=== PATIENT | female | born 1935 | race Caucasian/White ===

== ENCOUNTER 2017-06-30 14:30 | Inpatient (IN) | payer MEDICARE ==
[~2017-06-30] VITALS: Ht 162.6 cm; Wt 51.5 kg
[~2017-06-30 14:30] MED LIST: ASP81TEC PO; HTN med; SOTOLOL
--- NOTE | 2017-06-30 14:53 | ED Lower Extremity ---
General Chief Complaint: Lower Extremity Stated Complaint: EDEMA SWELLING AND LEAKING IN BOTH LE Source: patient, family Exam Limitations: no limitations History of Present Illness Time seen by provider: 14:48 Initial Comments The patient's an 81-year-old white female who presents to the emergency room with rapidly increasing redness and swelling in the right lower extremity. She has been receiving treatment for venous stasis and blistering. Her transition of care specialist states that yesterday both legs were a bit swollen they were not red or warm. Today the right lower extremity has become red and warm and has become tender. The transition of care specialist states that the open areas were blisters that were present days ago but there was not redness Onset: this morning Pain/Injury Location: right leg Allergies and Home Medications Allergies Coded Allergies: Penicillins (Verified Adverse Reaction, Intermediate, swelling, 06/29/13) aspartame (Verified Adverse Reaction, Intermediate, elevated heart rate/ feeling ill, 06/29/13) Home Medications Aspirin 81 Mg Tabec, 81 MG PO DAILY, (Reported) [HTN med] , (Reported) [Sotolol] , (Reported) Constitutional: see HPI EENTM: no symptoms reported Respiratory: no symptoms reported Cardiovascular: no symptoms reported Gastrointestinal: no symptoms reported Genitourinary: no symptoms reported Musculoskeletal: see HPI Skin: see HPI Psychiatric/Neurological: No Symptoms Reported Past Smrrslh-Hkueta-Ulirex Hx Patient Social History Recent Foreign Travel: No Contact w/Someone Who Travel: No Seasonal Allergies Seasonal Allergies: Yes Surgeries HX Surgeries: Yes Respiratory Hx Respiratory Disorders: No Cardiovascular Hx Cardiac Disorders: Yes (SVT) Neurological Hx Neurological Disorders: No Genitourinary Hx Genitourinary Disorders: No Gastrointestinal Hx Gastrointestinal Disorders: No Musculoskeletal Hx Musculoskeletal Disorders: Yes (DJD) Musculoskeletal Disorders: Arthritis Endocrine Hx Endocrine Disorders: No HEENT HX ENT Disorders: No Cancer Hx Cancer: No Psychosocial Hx Psychiatric Problems: No Integumentary HX Skin/Integumentary Disorder: No Blood Transfusions Hx Blood Disorders: No Physical Exam Vital Signs Vital Sign - Last 12Hours 06/30/17 14:35 Temp 98.6 Pulse 68 Resp 18 B/P (MAP) 167/93 Pulse Ox 95 Capillary Refill : General Appearance: mild distress HEENT: normal ENT inspection Neck: non-tender, full range of motion, supple, normal inspection Cardiovascular: normal peripheral pulses, regular rate, rhythm, no edema, no gallop, no JVD, no murmur Respiratory: chest non-tender, lungs clear, normal breath sounds, no respiratory distress, no accessory muscle use Gastrointestinal: normal bowel sounds, non tender, soft, no organomegaly, no pulsatile mass Legs: right leg soft tissue tenderness, right leg swelling Neurologic/Tendon: normal sensation Neurologic/Psychiatric: cotton wringer II-XII nml as tested, no motor/sensory deficits, alert, normal mood/affect, oriented x 3 Skin: other (there was redness and warmth to just below the tibial tuberosity on the right. There is 2+ swelling at the foot. There were multiple small ulcerations over the anterior allen) Progress/Results/Core Measures Results/Orders Lab Results Laboratory Tests Test 06/30/17 14:55 Range/Units White Blood Count 19.2 H 4.3-11.0 10^3/uL Red Blood Count 3.88 L 4.35-5.85 10^6/uL Hemoglobin 11.2 L 11.5-16.0 G/DL Hematocrit 34 L 35-52 % Mean Corpuscular Volume 86 80-99 FL Mean Corpuscular Hemoglobin 29 25-34 PG Mean Corpuscular Hemoglobin Concent 33 32-36 G/DL Red Cell Distribution Width 15.6 H 10.0-14.5 % Platelet Count 297 130-400 10^3/uL Mean Platelet Volume 9.0 7.4-10.4 FL Neutrophils (%) (Auto) 86 H 42-75 % Lymphocytes (%) (Auto) 5 L 12-44 % Monocytes (%) (Auto) 8 0-12 % Eosinophils (%) (Auto) 1 0-10 % Basophils (%) (Auto) 0 0-10 % Neutrophils # (Auto) 16.6 H 1.8-7.8 X 10^3 Lymphocytes # (Auto) 0.9 L 1.0-4.0 X 10^3 Monocytes # (Auto) 1.6 H 0.0-1.0 X 10^3 Eosinophils # (Auto) 0.1 0.0-0.3 10^3/uL Basophils # (Auto) 0.1 0.0-0.1 10^3/uL My Orders Orders - SCAR GUIDRY MD Cbc With Automated Diff (06/30/17 14:46) Comprehensive Metabolic Panel (06/30/17 14:46) Ua Culture If Indicated (06/30/17 14:46) Manual Differential (06/30/17 14:55) Blood Culture (06/30/17 15:21) Vital Signs/I&O Vital Sign - Last 12Hours 06/30/17 14:35 Temp 98.6 Pulse 68 Resp 18 B/P (MAP) 167/93 Pulse Ox 95 Departure Communication Progress Notes White count was 19.2. Vital signs are normal. Discussed with Dr. Reagan hospitalist at 1525. The patient will be admitted and placed on cefepime and vancomycin empirically. Impression Impression: Primary Impression: venous stasis dermatitis Additional Impression: cellulitis right lower extremity Disposition: ADMITTED INPATIENT Condition: Stable/Unchanged Decision to Admit Reason: Admit from ER (General) Decision to Admit/Date: Jun 30, 2017 Time/Decision to Admit Time: 15:26 Departure-Patient Inst. Referrals: AVELINA JUAREZ MD (PCP/Family) Primary Care Physician SCAR GUIDRY MD Jun 30, 2017 14:53
[2017-06-30 15:10] LABS: BASOPHILS # (AUTO) 0.1 10^3/uL (0.0-0.1); BASOPHILS % (AUTO) 0 % (0-10); EOSINOPHILS # (AUTO) 0.1 10^3/uL (0.0-0.3); EOSINOPHILS % (AUTO) 1 % (0-10); LYMPHOCYTES # (AUTO) 0.9 X 10^3 (1.0-4.0); LYMPHOCYTES % (AUTO) 5 % (12-44); MEAN CORPUSCULAR HEMOGLOBIN 29 PG (25-34); MEAN CORPUSCULAR HGB CONC 33 G/DL (32-36); MEAN CORPUSCULAR VOLUME 86 FL (80-99); MONOCYTES # (AUTO) 1.6 X 10^3 (0.0-1.0); MONOCYTES % (AUTO) 8 % (0-12); NEUTROPHILS # (AUTO) 16.6 X 10^3 (1.8-7.8); NEUTROPHILS % (AUTO) 86 % (42-75); PLATELET COUNT 297 10^3/uL (130-400); RED BLOOD COUNT 3.88 10^6/uL (4.35-5.85); RED CELL DISTRIBUTION WIDTH 15.6 % (10.0-14.5); WHITE BLOOD COUNT 19.2 10^3/uL (4.3-11.0)
[2017-06-30] MEDS ORDERED: CEFEPIME INJECTION 2,000 MG in NS (IVPB) 50 ML IV ONE (15:30)
[2017-06-30 15:32] LABS: ALANINE AMINOTRANSFERASE 11 U/L (0-55); ALBUMIN 3.1 GM/DL (3.2-4.5); ANION GAP 13 MMOL/L (5-14); ASPARTATE AMINO TRANSFERASE 27 U/L (5-34); BILIRUBIN,TOTAL 1.2 MG/DL (0.1-1.0); BLOOD UREA NITROGEN 15 MG/DL (7-18); BUN/CREATININE RATIO 25; CALCIUM 9.4 MG/DL (8.5-10.1); CARBON DIOXIDE 24 MMOL/L (21-32); CHLORIDE 90 MMOL/L (98-107); GFR ESTIMATED > 60; GLUCOSE 110 MG/DL (70-105); SODIUM 127 MMOL/L (135-145); TOTAL PROTEIN 6.3 GM/DL (6.4-8.2)
[2017-06-30 15:38] LABS: BAND NEUTROPHILS 5 %; BASOPHILS % (MANUAL) 0 %; EOSINOPHILS % (MANUAL) 3 %; LYMPHOCYTES % (MANUAL) 3 %; NEUTROPHILS % (MANUAL) 82 %
[2017-06-30 17:18] VITALS: BP 178/100
[2017-06-30] MEDS ORDERED: VANCOMYCIN 1250 MG/NS 250 ML IVPB IV NR ×2 (17:30)
[2017-06-30] MEDS: NS IV 1000 ML 1,000 ML IV SCH (17:54)
[2017-06-30] MEDS ORDERED: ACETAMINOPHEN 325 MG TABLET/CAPLET (TYLENOL) PO PRN (18:00)
[2017-06-30 18:10] VITALS: BP 178/88
[2017-06-30] MEDS ORDERED: CETI10CA PO (18:22)
[2017-06-30] MEDS ORDERED: SOTA120T PO (18:22)
[2017-06-30] MEDS ORDERED: CELE200C PO (18:22)
[2017-06-30 19:35] VITALS: BP 158/88
[2017-06-30] MEDS ORDERED: amLODIPine 5 MG (NORVASC) TAB PO ONE (20:30)
[2017-06-30] MEDS: SOTALOL 80 MG (BETAPACE) TAB PO SCH (21:24)
[2017-06-30] MEDS: ALPRAZolam 0.25 MG (XANAX) TAB PO PRN (22:30)
[2017-06-30 23:54] VITALS: BP 117/66
[2017-07-01] MEDS ORDERED: meTOproloL SUCCINATE 50 MG (TOPROL XL) TAB PO SCH (02:45)
[2017-07-01] MEDS ORDERED: DIGOXIN 0.25 MG/ML (LANOXIN) 2 ML AMP IV ONE ×2 (02:45→05:30)
[2017-07-01] MEDS ORDERED: APIXABAN 5 MG (ELIQUIS) TABLET PO ONE (03:00)
[2017-07-01 04:00] VITALS: BP 130/84
[2017-07-01] MEDS: NS IV 1000 ML 1,000 ML IV SCH (04:05)
[2017-07-01 04:59] LABS: BASOPHILS % (AUTO) 0 % (0-10); EOSINOPHILS # (AUTO) 0.1 10^3/uL (0.0-0.3); EOSINOPHILS % (AUTO) 1 % (0-10); LYMPHOCYTES # (AUTO) 0.9 X 10^3 (1.0-4.0); LYMPHOCYTES % (AUTO) 5 % (12-44); MEAN CORPUSCULAR HEMOGLOBIN 28 PG (25-34); MEAN CORPUSCULAR HGB CONC 33 G/DL (32-36); MEAN CORPUSCULAR VOLUME 86 FL (80-99); MEAN PLATELET VOLUME 9.2 FL (7.4-10.4); MONOCYTES # (AUTO) 1.5 X 10^3 (0.0-1.0); MONOCYTES % (AUTO) 9 % (0-12); NEUTROPHILS # (AUTO) 13.6 X 10^3 (1.8-7.8); NEUTROPHILS % (AUTO) 85 % (42-75); PLATELET COUNT 294 10^3/uL (130-400); RED BLOOD COUNT 3.81 10^6/uL (4.35-5.85); RED CELL DISTRIBUTION WIDTH 15.8 % (10.0-14.5); WHITE BLOOD COUNT 16.1 10^3/uL (4.3-11.0)
[2017-07-01 08:20] VITALS: BP 121/70
[2017-07-01] MEDS: CEFEPIME 2 GM/NS 50 ML IVPB IV SCH ×2 (08:33)
[2017-07-01] MEDS: SOTALOL 80 MG (BETAPACE) TAB PO SCH ×2 (08:34→20:19)
[2017-07-01] MEDS ORDERED: APIXABAN 2.5 MG (ELIQUIS) TABLET PO SCH (09:00)
[2017-07-01 09:56] LABS: ALANINE AMINOTRANSFERASE 12 U/L (0-55); ALBUMIN 2.8 GM/DL (3.2-4.5); ANION GAP 9 MMOL/L (5-14); ASPARTATE AMINO TRANSFERASE 20 U/L (5-34); BILIRUBIN,TOTAL 1.4 MG/DL (0.1-1.0); BLOOD UREA NITROGEN 12 MG/DL (7-18); BUN/CREATININE RATIO 24; CALCIUM 8.6 MG/DL (8.5-10.1); CARBON DIOXIDE 25 MMOL/L (21-32); CHLORIDE 91 MMOL/L (98-107); CREATININE SERUM 0.49 MG/DL (0.60-1.30); GFR ESTIMATED > 60; GLUCOSE 79 MG/DL (70-105); POTASSIUM 3.8 MMOL/L (3.6-5.0); TOTAL PROTEIN 5.7 GM/DL (6.4-8.2)
[2017-07-01 10:15] LABS: SODIUM 125 MMOL/L (135-145)
[2017-07-01] MEDS: DIVALPROX SPRINKLE 125 MG (DEPAKOTE) CAP PO SCH ×2 (11:15→20:19)
[2017-07-01 11:37] LABS: BILIRUBIN,URINE NEGATIVE (NEGATIVE); KETONES,URINE 1+ (NEGATIVE); LEUKOCYTE ESTERASE ,URINE NEGATIVE (NEGATIVE); NITRITE,URINE NEGATIVE (NEGATIVE); PH,URINE 6 (5-9); PROTEIN,URINE NEGATIVE (NEGATIVE); UROBILINOGEN,URINE NORMAL (NORMAL)
--- NOTE | 2017-07-01 11:45 | History & Physical-Hospitalist ---
HPI History of Present Illness: HPI/Chief Complaint CC: Right lower leg cellulitis with h/o wound care management for severe venous stasis dermatitis HPI: This is an 81-year-old clinic patient of Dr. Tran'barbara with a past medical history of atrial fibrillation on Sotalol and venous stasis dermatitis managed by wound care the presents to the emergency room with right lower leg pain and edema. She was diagnosed with severe right lower extremity cellulitis and very complicated given the fact that she's been going to wound care and failure of that treatment so she was placed on broad-spectrum antibiotics of vancomycin and cefepime due to allergies of penicillin and her lab work is improved white count but she has become confused and hypernatremia initially was 127 now 125 indicating a huge factor in contributing to the confusion. I did start her on Depakote sprinkles to manage the delusions and paranoia she was having currently because she's at risk for further agitation and fall risk. Source: patient Exam Limitations: clinical condition (confused) Date Seen 07/01/17 Time Seen by Provider: 10:30 Attending Physician Socorro Reagan DO PCP Andrews Tran MD Referring Physician Date of Admission Jun 30, 2017 at 15:35 Home Medications & Allergies Home Medications Reviewed patient Home Medication Reconciliation Form Allergies Allergies Coded Allergies Penicillins (Verified Adverse Reaction, Intermediate, swelling, 06/30/17) aspartame (Verified Adverse Reaction, Intermediate, elevated heart rate/ feeling ill, 06/30/17) Past Kdhqhpt-Ehilhi-Flcgdd Hx Patient Social History Marrital Status: single Employed/Student: retired Alcohol Use: Rarely Uses Recreational Drug Use: No Smoking Status: Former Smoker Physical Abuse Screen: No Sexual Abuse: No Recent Foreign Travel: No Contact w/other who traveled: No Recent Hopitalizations: No Recent Infectious Disease Expo: No Seasonal Allergies Seasonal Allergies: Yes Surgeries HX Surgeries: Yes Surgeries: Appendectomy, Gallbladder, Hysterectomy, Orthopedic Respiratory Hx Respiratory Disorders: No Cardiovascular Hx Cardiovascular Disorders: Yes (SVT) Neurological Hx Neurological Disorders: Yes Neurological Disorders: Dementia Reproductive System Sexually Transmitted Disease: No Genitourinary Hx Genitourinary Disorders: No Gastrointestinal Hx Gastrointestinal Disorders: No Musculoskeletal Hx Musculoskeletal Disorders: Yes (DJD) Musculoskeletal Disorders: Osteoporosis, Rheumatoid Arthritis Endocrine Hx Endocrine Disorders: No HEENT HX ENT Disorders: No HEENT Disorders: Cataract Cancer Hx Cancer: No Psychosocial Hx Psychiatric Problems: No Integumentary HX Skin/Integumentary Disorder: No Blood Transfusions Hx Blood Disorders: No Adverse Reaction to a Blood Tr: No Family Medical History Family Hx: Arthritis 19 MOTHER Cardiovascular disease 19 MOTHER FH: lung cancer 19 FATHER Review of Systems Constitutional: see HPI, weakness EENTM: no symptoms reported Respiratory: no symptoms reported Cardiovascular: no symptoms reported Gastrointestinal: no symptoms reported Genitourinary: no symptoms reported Musculoskeletal: joint pain Skin: see HPI Psychiatric/Neurological: Anxiety, Other (confusion) Physical Exam Physical Exam Vital Signs Vital Sign - Last 12Hours 06/30/17 06/30/17 14:35 17:18 Temp 98.6 Pulse 68 Resp 18 B/P (MAP) 167/93 Pulse Ox 95 O2 Delivery Room Air Capillary Refill : Less Than 3 Seconds General Appearance: WD/WN, Chronically ill, Mild Distress (due to anxiety) Eyes: Bilateral Eye Normal Inspection, Bilateral Eye PERRL HEENT: PERRL/EOMI, Normal ENT Inspection, Pharynx Normal Neck: Full Range of Motion, Normal Inspection, Non Tender, Supple, Carotid Bruit Respiratory: Chest Non Tender, Lungs Clear, Normal Breath Sounds, No Accessory Muscle Use, No Respiratory Distress Cardiovascular: Regular Rate, Rhythm, No Edema, No Gallop, No JVD, No Murmur, Normal Peripheral Pulses Gastrointestinal: Normal Bowel Sounds, No Organomegaly, No Pulsatile Mass, Non Tender, Soft Back: Normal Inspection, No CVA Tenderness, No Vertebral Tenderness Extremity: Normal Capillary Refill, Normal Inspection, Normal Range of Motion, Non Tender, No Calf Tenderness, No Pedal Edema, Other (right lower leg improved edema and erythema no ulcerations for drainage) Neurologic/Psychiatric: Alert, Oriented x3, No Motor/Sensory Deficits, Normal Mood/Affect Skin: Normal Color, Warm/Dry Lymphatic: No Adenopathy Results Results/Procedures Lab Laboratory Tests 06/30/17 14:55 07/01/17 03:58 07/01/17 05:58 Assessment/Plan Admission Diagnosis Assessment: Right lower leg cellulitis failed wound care treatment with antibiotic administration placed on vancomycin and cefepime and much improved Severe confusion with dementia baseline placed on Depakote sprinkles empirically Severe hyponatremia 127 on admission now 125 placed on 800 mL of oral fluid restriction likely a conservative factor of increased confusion SVT/AF on sotalol Fall risk Chronic debility Tachycardia prompting cardiology consultation last night due to heart rate of 130 Assessment and Plan Plan: IV antibiotics empirically Monitor labs Fluid restriction Depakote sprinkles Monitor closely Fall risk I appreciate cardiology management Clinical Quality Measures DVT/VTE Risk/Contraindication: Risk Factor Score Per Nursin RFS Level Per Nursing on Admit: 4+=Very High Other: SCDS CONTRAINDICATED, LEGS ARE INFLAMMED SOCORRO REAGAN DO Jul 01, 2017 11:45
[2017-07-01 11:53] LABS: WBC,URINE RARE /HPF
[2017-07-01] MEDS ORDERED: meTOprolol 5 MG/5 ML (LOPRESSOR) VIAL IV NR (12:15)
--- NOTE | 2017-07-01 12:52 | Consultation-Cardiology ---
HPI-Cardiology Cardiology Consultation: Date of Consultation 07/01/17 Date of Admission Attending Physician Socorro Reagan DO Admitting Physician Andrews Tran MD Consulting Physician Faye MEJIA MD HPI: Time Seen by Provider: 12:00 Chief Complaint: Supraventricular tachycardia This is a 81-year-old lady who presents with cellulitis. She was found to have tachycardia. She denies any palpitations however she does have shortness of breath. She denies any chest pain. Review of Systems-Cardiology Review of Systems Constitutional: No As described under HPI, No no symptoms reported, No chills, No fever, No lightheadedness, No malaise, No tiredness, No weight loss, No weight gain, No other Eyes: No As described under HPI, No no symptoms reported, No blindness, No blurred vision, No contact lenses, No drainage, No decreased acuity, No foreign body sensation, No glasses, No inflammation, No pain, No photophobia, No previous injury, No shadows, No tunnel vision, No other, No vision change Ears/Nose/Throat: No As described under HPI, No no symptoms reported, No chronic hearing loss, No epistaxis, No ear discharge, No ear pain, No loose teeth, No mouth pain, No mouth swelling, No nasal drainage, No nose pain, No recent hearing loss, No throat pain, No throat swelling, No ulcerations, No other Respiratory: shortness of breath Cardiovascular: No no symptoms reported, No As described under HPI, No chest pain, No edema, No irregular heart rate, No lightheadedness, No palpitations, No syncope, No other Gastrointestinal: No no symptoms reported, No As described under HPI, No abdomen distended, No abdominal pain, No blood streaked bowels, No constipation , No diarrhea, No difficulty swallowing, No nausea, No poor appetite, No poor fluid intake, No rectal bleeding, No vomiting, No other, No nausea/vomiting/ diarrhea, No stool coloration changes Genitourinary: No no symptoms reported, No As described under HPI, No burning, No dysuria, No discharge, No frequency, No flank pain, No hematuria, No incontinence, No pain, No urgency, No other, No urine frequency changes, No urine coloration changes Musculoskeletal: No no symptoms reported, No As describe under HPI, No back pain, No gout, No joint pain, No joint swelling, No muscle pain, No muscle stiffness, No neck pain, No other Skin: other (right lower extremity cellulitis) Psychiatric/Neurological: No As described under HPI, No anxiety, No depression , No emotional problems, No focal weakness, No headache, No no symptoms reported , No numbness, No other, No pre-existing deficit, No seizure, No syncope, No tingling, No tremors, No weakness Hematologic: No no symptoms reported, No As described under HPI, No anemia, No blood clots, No easy bleeding, No easy bruising, No swollen glands, No other, No bleeding abnormalities PZP-Pcmquc-Itxqyy Hx Patient Social History Marrital Status: single Employed/Student: retired Alcohol Use: Rarely Uses Recreational Drug Use: No Smoking Status: Former Smoker Recent Foreign Travel: No Recent Infectious Disease Expo: No Hospitalization with Isolation: Denies Physical Abuse Screen: No Sexual Abuse: No Past Medical History PMH As described under Assessment. Family Medical History Family History: Arthritis 19 MOTHER Cardiovascular disease 19 MOTHER FH: lung cancer 19 FATHER Allergies and Home Medications Allergies Coded Allergies: Penicillins (Verified Adverse Reaction, Intermediate, swelling, 06/30/17) aspartame (Verified Adverse Reaction, Intermediate, elevated heart rate/ feeling ill, 06/30/17) Home Medications Aspirin 81 Mg Tabec, 81 MG PO DAILY, (Reported) Celecoxib 200 Mg Capsule, 200 MG PO BID, (Reported) Cetirizine HCl 10 Mg Capsule, 10 MG PO DAILY, (Reported) Sotalol HCl 120 Mg Tablet, 120 MG PO BID, (Reported) Physical Exam-Cardiology Physical Exam Vital Signs/I&O Vital Sign - Last 12Hours 07/01/17 07/01/17 07/01/17 07/01/17 01:56 04:00 07:00 08:20 Temp 98.4 98.2 Pulse 137 131 125 130 Resp 20 20 B/P (MAP) 130/84 121/70 Pulse Ox 91 93 O2 Delivery Room Air Room Air 07/01/17 08:45 Pulse Ox 93 O2 Delivery Room Air Intake and Output 07/01/17 00:00 Intake Total 260 ml Output Total 200 ml Balance 60 ml Capillary Refill : Less Than 3 Seconds Constitutional: No appears stated age, No AAO x 3, No apparent distress, No PERRL, No well-developed, No well-nourished, No other HEENT: No PERRL, No normal ENT inspection, No TMs normal, No pharynx normal, No scleral icterus (R), No scleral icterus (L), No pale conjunctivae (R), No pale conjunctivae (L), No photophobia, No TM abnormal (R), No TM abnormal (L), No pharyngeal erythema, No tonsillar exudate, No other, No discharge, No EOMI, No hearing is well preserved, No hard of hearing, No oral hygience is good, No ulceration, No xanthelasmas are seen Neck: No non-tender, No full range of motion, No supple, No normal inspection, No carotid bruit, No limited range of motion, No lymphadenopathy (R), No lymphadenopathy (L), No tender lateral, No tender midline, No thyromegaly, No other, No carotid pulses are 2 + bilaterally, No with good upstrokes Respiratory: No accessory muscle use, No respiratory distress, No chest tender , No chest expansion is symmetric, No chest is bilaterally symmetric, No lungs clear to percussion, No lungs clear to auscultation, No crackles, No rhonchi, No rales, No stridor, No wheezing, No pleural rub, No other Cardiovascular: No regular rate-rhythm, No irregularly irregular, No extra beats, No parasternal heave is noted, No JVD, No edema, No bradycardia, tachycardia, No point of maximal impulse, No cardiac thrills are palpable, No S1 and S2, No gallop/S3, No gallop/S4, No diastolic murmur, No systolic murmur, No friction rub, No click, No other Gastrointestinal: No tender, No soft, No round, No distended, No pulsatile mass , No organomegaly, No guarding, No rebound, No tenderness, No hernia, No mass, No audible bowel sounds, No abnormal bowel sounds, No abdominal bruits, No spleenomegaly, No other Rectal: deferred Extremities: inflammation, other (right lower extremity cellulitis) Neurologic/Psychiatric: No winery worker II-XII nml as tested, No no motor/sensory deficits, No alert, No normal mood/affect, No oriented x 3, No abnormal cerebellar tests, No abnormal winery worker II-XII, No abnormal gait, No aphasia, No EOM palsy, No facial droop, No motor weakness, No sensory deficit, No depressed affect, No disoriented x 3, No other, No grossly intact, No power is 5/5 both on sides Skin: rash Data Review Labs Laboratory Tests 06/30/17 14:55: White Blood Count 19.2H, Red Blood Count 3.88L, Hemoglobin 11.2L, Hematocrit 34L , Mean Corpuscular Volume 86, Mean Corpuscular Hemoglobin 29, Mean Corpuscular Hemoglobin Concent 33, Red Cell Distribution Width 15.6H, Platelet Count 297, Mean Platelet Volume 9.0, Neutrophils (%) (Auto) 86H, Lymphocytes (%) (Auto) 5L , Monocytes (%) (Auto) 8, Eosinophils (%) (Auto) 1, Basophils (%) (Auto) 0, Neutrophils # (Auto) 16.6H, Lymphocytes # (Auto) 0.9L, Monocytes # (Auto) 1.6H, Eosinophils # (Auto) 0.1, Basophils # (Auto) 0.1, Neutrophils % (Manual) 82, Lymphocytes % (Manual) 3, Monocytes % (Manual) 7, Eosinophils % (Manual) 3, Basophils % (Manual) 0, Band Neutrophils 5, Blood Morphology Comment NORMAL, Sodium Level 127L, Potassium Level 4.0, Chloride Level 90L, Carbon Dioxide Level 24, Anion Gap 13, Blood Urea Nitrogen 15, Creatinine 0.60, Estimat Glomerular Filtration Rate > 60, BUN/Creatinine Ratio 25, Glucose Level 110H, Calcium Level 9.4, Total Bilirubin 1.2H, Aspartate Amino Transf (AST/SGOT) 27, Alanine Aminotransferase (ALT/SGPT) 11, Alkaline Phosphatase 106, Total Protein 6.3L, Albumin 3.1L 07/01/17 03:58: White Blood Count 16.1H, Red Blood Count 3.81L, Hemoglobin 10.7L, Hematocrit 33L , Mean Corpuscular Volume 86, Mean Corpuscular Hemoglobin 28, Mean Corpuscular Hemoglobin Concent 33, Red Cell Distribution Width 15.8H, Platelet Count 294, Mean Platelet Volume 9.2, Neutrophils (%) (Auto) 85H, Lymphocytes (%) (Auto) 5L , Monocytes (%) (Auto) 9, Eosinophils (%) (Auto) 1, Basophils (%) (Auto) 0, Neutrophils # (Auto) 13.6H, Lymphocytes # (Auto) 0.9L, Monocytes # (Auto) 1.5H, Eosinophils # (Auto) 0.1, Basophils # (Auto) 0.0 07/01/17 05:58: Sodium Level 125*L, Potassium Level 3.8, Chloride Level 91L, Carbon Dioxide Level 25, Anion Gap 9, Blood Urea Nitrogen 12, Creatinine 0.49L, Estimat Glomerular Filtration Rate > 60, BUN/Creatinine Ratio 24, Glucose Level 79, Calcium Level 8.6, Total Bilirubin 1.4H, Aspartate Amino Transf (AST/SGOT) 20, Alanine Aminotransferase (ALT/SGPT) 12, Alkaline Phosphatase 107, Total Protein 5.7L, Albumin 2.8L 07/01/17 11:30: Urine Color YELLOW, Urine Clarity CLEAR, Urine pH 6, Urine Specific [place] 1.015L, Urine Protein NEGATIVE, Urine Glucose (UA) NEGATIVE, Urine Ketones 1+H, Urine Nitrite NEGATIVE, Urine Bilirubin NEGATIVE, Urine Urobilinogen NORMAL, Urine Leukocyte Esterase NEGATIVE, Urine RBC (Auto) NEGATIVE, Urine RBC RARE, Urine WBC RARE, Urine Squamous Epithelial Cells 2-5, Urine Crystals NONE, Urine Bacteria NEGATIVE, Urine Casts NONE, Urine Mucus NEGATIVE, Urine Culture Indicated NO ECG Impression ECG Initial ECG Impression: SVT A/P-Cardiology Assessment/Admission Diagnosis Cellulitis, Tachycardia, History of SVT Plan Cellulitis with systemic inflammation. Getting IV antibiotics. Defer to primary service. History of supraventricular tachycardia sees in [facility] who started sotalol. Oral anticoagulation was not initiated. EKG and telemetry shows narrow complex supraventricular tachycardia unlikely atrial fibrillation however atrial tachycardia cannot be ruled out. Supraventricular tachycardia is likely secondary to systemic infection and hopefully with improvement of infection SVT well resolve as well. Continue sotalol. We will give 1 dose of IV Lopressor. Thank you for your consultation. Please call me if you have any questions. Nba Mejia MD, FACP, FACC, FSCAI, FHRS, CCDS Interventional Cardiology Cardiac Electrophysiology Vascular Medicine and Endovascular Interventions Clinical Quality Measures DVT/VTE Risk/Contraindication: Risk Factor Score Per Nursin RFS Level Per Nursing on Admit: 4+=Very High Other: SCDS CONTRAINDICATED, LEGS ARE INFLAMMED Faye MEJIA MD Jul 01, 2017 12:52 pm
[2017-07-01 12:54] VITALS: BP 140/91
[2017-07-01 15:49] VITALS: BP 141/63
[2017-07-01] MEDS ORDERED: VANCOMYCIN 1 GM/NS 250 ML IVPB IV SCH ×2 (17:00)
[2017-07-01] MEDS: APIXABAN 5 MG (ELIQUIS) TABLET PO SCH (17:08)
[2017-07-01 19:23] VITALS: BP 154/89
[2017-07-01] MEDS: ALPRAZolam 0.25 MG (XANAX) TAB PO PRN (20:19)
[2017-07-01 23:37] VITALS: BP 161/75
[2017-07-02 04:00] VITALS: BP 137/63
[2017-07-02 04:35] LABS: BASOPHILS % (AUTO) 0 % (0-10); EOSINOPHILS # (AUTO) 0.4 10^3/uL (0.0-0.3); EOSINOPHILS % (AUTO) 3 % (0-10); LYMPHOCYTES # (AUTO) 1.1 X 10^3 (1.0-4.0); LYMPHOCYTES % (AUTO) 10 % (12-44); MEAN CORPUSCULAR HEMOGLOBIN 28 PG (25-34); MEAN CORPUSCULAR HGB CONC 33 G/DL (32-36); MEAN CORPUSCULAR VOLUME 87 FL (80-99); MEAN PLATELET VOLUME 9.2 FL (7.4-10.4); MONOCYTES # (AUTO) 1.4 X 10^3 (0.0-1.0); MONOCYTES % (AUTO) 13 % (0-12); NEUTROPHILS # (AUTO) 8.4 X 10^3 (1.8-7.8); NEUTROPHILS % (AUTO) 74 % (42-75); PLATELET COUNT 282 10^3/uL (130-400); RED CELL DISTRIBUTION WIDTH 15.6 % (10.0-14.5); WHITE BLOOD COUNT 11.3 10^3/uL (4.3-11.0)
[2017-07-02 04:54] LABS: ALANINE AMINOTRANSFERASE 8 U/L (0-55); ALBUMIN 2.5 GM/DL (3.2-4.5); ANION GAP 10 MMOL/L (5-14); ASPARTATE AMINO TRANSFERASE 16 U/L (5-34); BILIRUBIN,TOTAL 0.8 MG/DL (0.1-1.0); BLOOD UREA NITROGEN 13 MG/DL (7-18); BUN/CREATININE RATIO 28; CALCIUM 8.5 MG/DL (8.5-10.1); CARBON DIOXIDE 23 MMOL/L (21-32); CHLORIDE 96 MMOL/L (98-107); CREATININE SERUM 0.46 MG/DL (0.60-1.30); GFR ESTIMATED > 60; GLUCOSE 92 MG/DL (70-105); POTASSIUM 3.6 MMOL/L (3.6-5.0); SODIUM 129 MMOL/L (135-145); TOTAL PROTEIN 4.4 GM/DL (6.4-8.2)
[2017-07-02] MEDS: APIXABAN 5 MG (ELIQUIS) TABLET PO SCH ×2 (05:09→17:27)
[2017-07-02 08:47] VITALS: BP 149/65
[2017-07-02] MEDS: CEFEPIME 2 GM/NS 50 ML IVPB IV SCH ×2 (09:00)
[2017-07-02] MEDS: SOTALOL 80 MG (BETAPACE) TAB PO SCH ×2 (09:01→19:36)
[2017-07-02] MEDS: DIVALPROX SPRINKLE 125 MG (DEPAKOTE) CAP PO SCH ×2 (09:01→21:02)
--- NOTE | 2017-07-02 11:26 | Cardiology Progress Note ---
Cardiology SOAP Progress Note Subjective: No cardiac complaints Objective: I&O/Vital Signs Vital Sign - Last 12Hours 07/01/17 07/02/17 07/02/17 07/02/17 23:37 01:00 04:00 07:16 Temp 97.3 97.8 Pulse 63 64 60 71 Resp 20 20 B/P (MAP) 161/75 137/63 Pulse Ox 93 91 O2 Delivery Room Air Room Air 07/02/17 07/02/17 08:47 09:00 Temp 96.1 Pulse 98 Resp 20 B/P (MAP) 149/65 Pulse Ox 96 96 O2 Delivery Room Air Room Air Intake and Output 07/02/17 00:00 Intake Total 2112.5 ml Output Total 350 ml Balance 1762.5 ml Weight (Pounds): 113 Weight (Ounces): 9.0 Weight (Calculated Kilograms): 51.679070 Constitutional: No appears stated age, No AAO x 3, No apparent distress, No PERRL, No well-developed, No well-nourished, No other Respiratory: No accessory muscle use, No respiratory distress, No chest tender , No chest expansion is symmetric, No chest is bilaterally symmetric, No lungs clear to percussion, No lungs clear to auscultation, No crackles, No rhonchi, No rales, No stridor, No wheezing, No pleural rub, No other Cardiovascular: No regular rate-rhythm, No irregularly irregular, No extra beats, No parasternal heave is noted, No JVD, No edema, No bradycardia, tachycardia, No point of maximal impulse, No cardiac thrills are palpable, No S1 and S2, No gallop/S3, No gallop/S4, No diastolic murmur, No systolic murmur, No friction rub, No click, No other Gastrointestional: No tender, No soft, No round, No distended, No pulsatile mass, No organomegaly, No guarding, No rebound, No tenderness, No hernia, No mass, No audible bowel sounds, No abnormal bowel sounds, No abdominal bruits, No spleenomegaly, No other Extremities: inflammation, other (right lower extremity cellulitis) Neurologic/Psychiatric: No preschool assistant teacher II-XII nml as tested, No no motor/sensory deficits, No alert, No normal mood/affect, No oriented x 3, No abnormal cerebellar tests, No abnormal preschool assistant teacher II-XII, No abnormal gait, No aphasia, No EOM palsy, No facial droop, No motor weakness, No sensory deficit, No depressed affect, No disoriented x 3, No other, No grossly intact, No power is 5/5 both on sides Skin: rash Results/Procedures: Labs Laboratory Tests 07/01/17 11:30: Urine Color YELLOW, Urine Clarity CLEAR, Urine pH 6, Urine Specific [place] 1.015L, Urine Protein NEGATIVE, Urine Glucose (UA) NEGATIVE, Urine Ketones 1+H, Urine Nitrite NEGATIVE, Urine Bilirubin NEGATIVE, Urine Urobilinogen NORMAL, Urine Leukocyte Esterase NEGATIVE, Urine RBC (Auto) NEGATIVE, Urine RBC RARE, Urine WBC RARE, Urine Squamous Epithelial Cells 2-5, Urine Crystals NONE, Urine Bacteria NEGATIVE, Urine Casts NONE, Urine Mucus NEGATIVE, Urine Culture Indicated NO 07/02/17 04:18: White Blood Count 11.3H, Red Blood Count 3.40L, Hemoglobin 9.6L, Hematocrit 30L , Mean Corpuscular Volume 87, Mean Corpuscular Hemoglobin 28, Mean Corpuscular Hemoglobin Concent 33, Red Cell Distribution Width 15.6H, Platelet Count 282, Mean Platelet Volume 9.2, Neutrophils (%) (Auto) 74, Lymphocytes (%) (Auto) 10L , Monocytes (%) (Auto) 13H, Eosinophils (%) (Auto) 3, Basophils (%) (Auto) 0, Neutrophils # (Auto) 8.4H, Lymphocytes # (Auto) 1.1, Monocytes # (Auto) 1.4H, Eosinophils # (Auto) 0.4H, Basophils # (Auto) 0.0, Sodium Level 129L, Potassium Level 3.6, Chloride Level 96L, Carbon Dioxide Level 23, Anion Gap 10, Blood Urea Nitrogen 13, Creatinine 0.46L, Estimat Glomerular Filtration Rate > 60, BUN /Creatinine Ratio 28, Glucose Level 92, Calcium Level 8.5, Total Bilirubin 0.8, Aspartate Amino Transf (AST/SGOT) 16, Alanine Aminotransferase (ALT/SGPT) 8, Alkaline Phosphatase 78, Total Protein 4.4L, Albumin 2.5L Microbiology 06/30/17 Blood Culture - Preliminary, Resulted No growth A/P: Assessment/Dx: Cellulitis, Tachycardia, History of SVT Plan: Cellulitis with systemic inflammation. Getting IV antibiotics. Defer to primary service. History of supraventricular tachycardia sees in [facility] who started sotalol. Oral anticoagulation was not initiated. EKG and telemetry shows narrow complex supraventricular tachycardia unlikely atrial fibrillation however atrial tachycardia cannot be ruled out. Supraventricular tachycardia is likely secondary to systemic infection and hopefully with improvement of infection SVT well resolve as well. Continue sotalol. We gave one dose of Lopressor yesterday which converted the patient to sinus rhythm. However patient went back into SVT this morning therefore I have started Lopressor 2.5 mg IV every 8 hour period Thank you for your consultation. Please call me if you have any questions. Nba Mejia MD, FACP, FACC, FSCAI, FHRS, CCDS Interventional Cardiology Cardiac Electrophysiology Vascular Medicine and Endovascular Interventions Faye MEJIA MD Jul 02, 2017 11:26 am
--- NOTE | 2017-07-02 11:47 | Progress Note-Hospitalist ---
Progress Note HPI/CC on Admission CC: Right lower leg cellulitis with h/o wound care management for severe venous stasis dermatitis HPI: This is an 81-year-old clinic patient of Dr. Tran'barbara with a past medical history of atrial fibrillation on Sotalol and venous stasis dermatitis managed by wound care the presents to the emergency room with right lower leg pain and edema. She was diagnosed with severe right lower extremity cellulitis and very complicated given the fact that she's been going to wound care and failure of that treatment so she was placed on broad-spectrum antibiotics of vancomycin and cefepime due to allergies of penicillin and her lab work is improved white count but she has become confused and hypernatremia initially was 127 now 125 indicating a huge factor in contributing to the confusion. I did start her on Depakote sprinkles to manage the delusions and paranoia she was having currently because she's at risk for further agitation and fall risk. Progress Notes/Assess & Plan Date Seen 07/02/17 Time Seen by Provider: 10:45 Admission Dx/Process Assessment: Right lower leg cellulitis failed wound care treatment with antibiotic administration placed on vancomycin and cefepime and much improved Severe confusion with dementia baseline placed on Depakote sprinkles empirically Severe hyponatremia 127 on admission now 125 placed on 800 mL of oral fluid restriction likely a conservative factor of increased confusion SVT/AF on sotalol Fall risk Chronic debility Tachycardia prompting cardiology consultation last night due to heart rate of 130 Diagonsis/Assessment & Plan Pt doing well and less confused considering sodium level is now 129 on fluid restriction and I started Depakote sprinkles 125mg BID Right leg is much improved Tachycardia varies between 60 and then 130 and Cardiology increased Lopressor to manage that. Reports congestion that she takes Mucinex DM for so I ordered that. I also started Xopenex to help and decrease tachycardia side effects. + BM Checked meds and labs. Denies pain. AFVSS, Pleasant, improved, O x ~2 but poor recall RRR, CTAB mild rales lower lobes No edema Right leg erythema improved Laboratory Tests 07/02/17 04:18 Assessment: Right lower leg cellulitis failed wound care treatment with antibiotic administration placed on vancomycin and cefepime and much improved Severe confusion with dementia baseline placed on Depakote sprinkles empirically - now improved Severe hyponatremia 127 on admission then decreased to 125 yesterday so placed on 800 mL of oral fluid restriction and now today 129 SVT/AF on sotalol and placed on Metoprolol. Cardiology managed. Fall risk Chronic debility Plan: IV antibiotics empirically Monitor labs Fluid restriction Depakote sprinkles Monitor closely Fall risk I appreciate cardiology management DC tomorrow on wound care and close f/u. PÉREZ HOWARD DO Jul 02, 2017 11:47
[2017-07-02] MEDS: guaiFENesin (MUCINEX) 600 MG TAB PO SCH ×2 (12:08→21:02)
[2017-07-02 12:50] VITALS: BP 156/74
[2017-07-02] MEDS ORDERED: RT-LEVALBUTEROL (XOPENEX) 1.25 MG/3 ML NEB NON-FORMULARY INH SCH (13:00)
[2017-07-02] MEDS: meTOprolol 5 MG/5 ML (LOPRESSOR) VIAL IV SCH ×2 (14:04→21:07)
[2017-07-02 15:50] VITALS: BP 165/87
[2017-07-02] MEDS ORDERED: TROUGH ORDER-PHARMACY XX NR (16:00)
[2017-07-02] MEDS: VANCOMYCIN 750 MG/NS 250 ML IVPB IV SCH ×2 (17:27)
[2017-07-02] MEDS: ALPRAZolam 0.25 MG (XANAX) TAB PO PRN (19:35)
[2017-07-02 20:17] VITALS: BP 160/98
[2017-07-02] MEDS ORDERED: meTOprolol 5 MG/5 ML (LOPRESSOR) VIAL IV ONE (22:30)
[2017-07-03] MEDS: ALPRAZolam 0.25 MG (XANAX) TAB PO PRN (00:12)
[2017-07-03 00:19] VITALS: BP 176/98
[2017-07-03] MEDS ORDERED: meTOprolol 5 MG/5 ML (LOPRESSOR) VIAL IV ONE (00:45)
[2017-07-03] MEDS: VANCOMYCIN 750 MG/NS 250 ML IVPB IV SCH ×2 (04:31)
[2017-07-03 04:32] VITALS: BP 138/89
[2017-07-03] MEDS: meTOprolol 5 MG/5 ML (LOPRESSOR) VIAL IV SCH (05:05)
[2017-07-03] MEDS: APIXABAN 5 MG (ELIQUIS) TABLET PO SCH (05:05)
[2017-07-03 07:13] LABS: BASOPHILS # (AUTO) 0.1 10^3/uL (0.0-0.1); BASOPHILS % (AUTO) 1 % (0-10); EOSINOPHILS # (AUTO) 0.4 10^3/uL (0.0-0.3); EOSINOPHILS % (AUTO) 5 % (0-10); LYMPHOCYTES % (AUTO) 14 % (12-44); MEAN CORPUSCULAR HEMOGLOBIN 28 PG (25-34); MEAN CORPUSCULAR HGB CONC 32 G/DL (32-36); MEAN CORPUSCULAR VOLUME 88 FL (80-99); MEAN PLATELET VOLUME 9.1 FL (7.4-10.4); MONOCYTES % (AUTO) 14 % (0-12); NEUTROPHILS % (AUTO) 67 % (42-75); PLATELET COUNT 304 10^3/uL (130-400); RED BLOOD COUNT 4.04 10^6/uL (4.35-5.85); RED CELL DISTRIBUTION WIDTH 15.9 % (10.0-14.5); WHITE BLOOD COUNT 7.5 10^3/uL (4.3-11.0)
[2017-07-03 07:36] LABS: ALANINE AMINOTRANSFERASE 11 U/L (0-55); ALBUMIN 2.9 GM/DL (3.2-4.5); ANION GAP 9 MMOL/L (5-14); ASPARTATE AMINO TRANSFERASE 20 U/L (5-34); BILIRUBIN,TOTAL 0.8 MG/DL (0.1-1.0); BLOOD UREA NITROGEN 10 MG/DL (7-18); BUN/CREATININE RATIO 19; CALCIUM 8.9 MG/DL (8.5-10.1); CARBON DIOXIDE 28 MMOL/L (21-32); CHLORIDE 96 MMOL/L (98-107); CREATININE SERUM 0.53 MG/DL (0.60-1.30); GFR ESTIMATED > 60; GLUCOSE 92 MG/DL (70-105); POTASSIUM 3.9 MMOL/L (3.6-5.0); SODIUM 133 MMOL/L (135-145)
[2017-07-03 08:32] VITALS: BP 174/75
[2017-07-03] MEDS: CEFEPIME 2 GM/NS 50 ML IVPB IV SCH ×2 (08:51)
[2017-07-03] MEDS: guaiFENesin (MUCINEX) 600 MG TAB PO SCH (08:53)
[2017-07-03] MEDS: SOTALOL 80 MG (BETAPACE) TAB PO SCH (08:53)
[2017-07-03] MEDS: DIVALPROX SPRINKLE 125 MG (DEPAKOTE) CAP PO SCH (08:54)
--- NOTE | 2017-07-03 09:12 | Cardiology Progress Note ---
Cardiology SOAP Progress Note Subjective: No cardiac symptoms Objective: I&O/Vital Signs Vital Sign - Last 12Hours 07/03/17 07/03/17 07/03/17 07/03/17 00:19 01:00 04:32 08:32 Temp 98.7 97.7 98.6 Pulse 134 130 135 75 Resp 20 20 20 B/P (MAP) 176/98 138/89 174/75 Pulse Ox 96 95 95 O2 Delivery Room Air Room Air Room Air Intake and Output 07/03/17 00:00 Intake Total 600 ml Output Total 350 ml Balance 250 ml Weight (Pounds): 113 Weight (Ounces): 9.0 Weight (Calculated Kilograms): 51.101556 Constitutional: No appears stated age, No AAO x 3, No apparent distress, No PERRL, No well-developed, No well-nourished, No other Respiratory: No accessory muscle use, No respiratory distress, No chest tender , No chest expansion is symmetric, No chest is bilaterally symmetric, No lungs clear to percussion, No lungs clear to auscultation, No crackles, No rhonchi, No rales, No stridor, No wheezing, No pleural rub, No other Cardiovascular: No regular rate-rhythm, No irregularly irregular, No extra beats, No parasternal heave is noted, No JVD, No edema, No bradycardia, tachycardia, No point of maximal impulse, No cardiac thrills are palpable, No S1 and S2, No gallop/S3, No gallop/S4, No diastolic murmur, No systolic murmur, No friction rub, No click, No other Gastrointestional: No tender, No soft, No round, No distended, No pulsatile mass, No organomegaly, No guarding, No rebound, No tenderness, No hernia, No mass, No audible bowel sounds, No abnormal bowel sounds, No abdominal bruits, No spleenomegaly, No other Extremities: inflammation, other (right lower extremity cellulitis) Neurologic/Psychiatric: No student specialist II-XII nml as tested, No no motor/sensory deficits, No alert, No normal mood/affect, No oriented x 3, No abnormal cerebellar tests, No abnormal student specialist II-XII, No abnormal gait, No aphasia, No EOM palsy, No facial droop, No motor weakness, No sensory deficit, No depressed affect, No disoriented x 3, No other, No grossly intact, No power is 5/5 both on sides Skin: rash Results/Procedures: Labs Laboratory Tests 07/02/17 16:11: Vancomycin Level Trough 6.8L 07/03/17 06:41: White Blood Count 7.5, Red Blood Count 4.04L, Hemoglobin 11.3L, Hematocrit 35, Mean Corpuscular Volume 88, Mean Corpuscular Hemoglobin 28, Mean Corpuscular Hemoglobin Concent 32, Red Cell Distribution Width 15.9H, Platelet Count 304, Mean Platelet Volume 9.1, Neutrophils (%) (Auto) 67, Lymphocytes (%) (Auto) 14, Monocytes (%) (Auto) 14H, Eosinophils (%) (Auto) 5, Basophils (%) (Auto) 1, Neutrophils # (Auto) 5.0, Lymphocytes # (Auto) 1.0, Monocytes # (Auto) 1.0, Eosinophils # (Auto) 0.4H, Basophils # (Auto) 0.1, Sodium Level 133L, Potassium Level 3.9, Chloride Level 96L, Carbon Dioxide Level 28, Anion Gap 9, Blood Urea Nitrogen 10, Creatinine 0.53L, Estimat Glomerular Filtration Rate > 60, BUN/ Creatinine Ratio 19, Glucose Level 92, Calcium Level 8.9, Total Bilirubin 0.8, Aspartate Amino Transf (AST/SGOT) 20, Alanine Aminotransferase (ALT/SGPT) 11, Alkaline Phosphatase 90, Total Protein 6.0L, Albumin 2.9L Microbiology 06/30/17 Blood Culture - Preliminary, Resulted No growth A/P: Assessment/Dx: Cellulitis, Tachycardia, History of SVT Plan: Cellulitis with systemic inflammation. Getting IV antibiotics. Defer to primary service. History of supraventricular tachycardia sees in [facility] who started sotalol. Oral anticoagulation was not initiated. EKG and telemetry shows narrow complex supraventricular tachycardia unlikely atrial fibrillation however atrial tachycardia cannot be ruled out. Supraventricular tachycardia is likely secondary to systemic infection and hopefully with improvement of infection SVT well resolve as well. Continue sotalol. Patient has paroxysmal SVT. Last night her heart rate was in the 120s and responded to an extra dose of IV Lopressor 2.5 mg. This morning she is in sinus rhythm. Continue IV pushes off Lopressor every 8 hours. Thank you for your consultation. Please call me if you have any questions. Nba Mejia MD, FACP, FACC, FSCAI, FHRS, CCDS Interventional Cardiology Cardiac Electrophysiology Vascular Medicine and Endovascular Interventions Faye MEJIA MD Jul 03, 2017 9:11 am
[2017-07-03] MEDS ORDERED: LECI400C PO (09:15)
[2017-07-03] MEDS ORDERED: MULT1TAB69 PO (09:15)
[2017-07-03] MEDS ORDERED: VITA1TAB17 PO (09:15)
[2017-07-03] MEDS ORDERED: RANI150T15 PO (09:15)
[2017-07-03] MEDS ORDERED: ASCO-262 PO (09:15)
[2017-07-03] MEDS ORDERED: METO-270 PO (09:32)
[2017-07-03] MEDS ORDERED: GUAI600T43 PO (09:32)
[2017-07-03] MEDS ORDERED: APIX5TAB PO (09:32)
[2017-07-03] MEDS ORDERED: ALPR0.254 PO (09:32)
[2017-07-03] MEDS ORDERED: CEFD300C3 PO (09:32)
[2017-07-03] MEDS ORDERED: DVL125C PO (09:32)
--- NOTE | 2017-07-03 09:35 | D/C HH Face to Face Order ---
D/C Face to Face Orders Instructions for Patient Patient Instructions/FollowUp: Dr Tran in 1 week Physician to follow Patient: Dr Tran Discharge Diet for Home: No Restrictions Patient Problems: Right lower leg cellulitis Venous stasis dermatitis Tachycardia Patient Data-Allergies,Ht & Wt Patient Allergies: Coded Allergies: Penicillins (Verified Adverse Reaction, Intermediate, swelling, 06/30/17) aspartame (Verified Adverse Reaction, Intermediate, elevated heart rate/ feeling ill, 06/30/17) Height (Feet): 5 Height (Inches): 4.00 Weight (Pounds): 113 Weight (Ounces): 9.0 Home Health Need/Face to Face Date of Face to Face: Jul 03, 2017 Clinical Findings: Generalized weakness and fatigue, Wound infection I have seen Pt [id number]: Yes Discharged To: Home Diagnosis/Conditions: Right lower leg cellulitis Venous stasis dermatitis Tachycardia Problems/Diagnosis/Condition: Patient is Homebound due to: CognItive deficits, Sole fall risk due to instabilty Homebound Status Due to the above stated illness, injury or surgical procedure (medical condition or diagnosis) and associated clinical findings, the patient is homebound because of his/her inability to leave home except with aid of a supportive device and/or person AND leaving the home requires a considerable and taxing effort or is medically contraindicated. Pt req the following assistanc: Aid of another person, Walker Home Health Nursing Orders Home Health Services Order: Nursing Services, Director Of [employer]-Evaluate & Treat, Physical Therapy-Evaluate & Treat Home Health Infusion Therapy Line Start Date: Jul 02, 2017 Line Start Time: 2300 Line Type: Saline Lock Site Location: Forearm Certify Stmt I certify that this patient is under my care and that I, a nurse practitioner or a physician; a operational assistant working with me, had a face to face encounter that - meets the physician face to face encounter requirements with this patient as dated. PÉREZ HOWARD DO Jul 03, 2017 09:35
[2017-07-03] MEDS ORDERED: APIX2.5T PO (09:37)
--- NOTE | 2017-07-03 09:39 | Discharge Summary-Hospitalist ---
Diagnosis/Chief Complaint Date of Admission Jun 30, 2017 at 15:35 Date of Discharge Discharge Date: Jul 03, 2017 Admission Diagnosis Assessment: Right lower leg cellulitis failed wound care treatment with antibiotic administration placed on vancomycin and cefepime and much improved Severe confusion with dementia baseline placed on Depakote sprinkles empirically Severe hyponatremia 127 on admission now 125 placed on 800 mL of oral fluid restriction likely a conservative factor of increased confusion SVT/AF on sotalol Fall risk Chronic debility Tachycardia prompting cardiology consultation last night due to heart rate of 130 Discharge Diagnosis Assessment: Right lower leg cellulitis failed wound care treatment with antibiotic administration placed on vancomycin and cefepime and much improved at day of DC so placed on Cefdinir Severe confusion with dementia baseline placed on Depakote sprinkles empirically - now improved at DC Severe hyponatremia 127 on admission then decreased to 125 yesterday so placed on 800 mL of oral fluid restriction and now today 133 SVT/AF on sotalol and placed on Metoprolol and Eliquis. Cardiology managed. Fall risk Chronic debility Pt doing well and less confused considering sodium level is now 129 on fluid restriction and I started Depakote sprinkles 125mg BID Right leg is much improved Tachycardia varies between 60 and then 130 and Cardiology increased Lopressor to manage that. Reports congestion that she takes Mucinex DM for so I ordered that. I also started Xopenex to help and decrease tachycardia side effects. + BM Checked meds and labs. Denies pain. AFVSS, Pleasant, improved, O x ~2 but poor recall RRR, CTAB mild rales lower lobes No edema Right leg erythema improved Laboratory Tests 07/02/17 04:18 Assessment: Right lower leg cellulitis failed wound care treatment with antibiotic administration placed on vancomycin and cefepime and much improved Severe confusion with dementia baseline placed on Depakote sprinkles empirically - now improved Severe hyponatremia 127 on admission then decreased to 125 yesterday so placed on 800 mL of oral fluid restriction and now today 129 SVT/AF on sotalol and placed on Metoprolol. Cardiology managed. Fall risk Chronic debility Plan: IV antibiotics empirically Monitor labs Fluid restriction Depakote sprinkles Monitor closely Fall risk I appreciate cardiology management DC tomorrow on wound care and close f/u. Hospital course: Patient had a standard hospital course. She was admitted from the ER w/right lower leg cellulitis after failing wound care at [facility] while undergoing treatment for venous stasis dermatitis. Dementia baseline with anxiety caused issues during the hospital stay that required Depakote sprinkles 125mg PO BID along with fluid restriction for hyponatremia of 125 along with Metoprolol w/Sotalol per Cardiology to treat PAF/AT with decision to place on anti-coagulation for CVA prophylaxis. Overall she was walking with walker and overall resuming her regular baseline ADL's and she was stable for DC with close f/u and HH was ordered to help recuperate at home. Discharge Summary Discharge Physical Examination Allergies: Coded Allergies: Penicillins (Verified Adverse Reaction, Intermediate, swelling, 06/30/17) aspartame (Verified Adverse Reaction, Intermediate, elevated heart rate/ feeling ill, 06/30/17) Vitals & I&Os Vital Signs Date Time Temp Pulse Resp B/P (MAP) Pulse Ox O2 Delivery O2 Flow Rate FiO2 07/03/17 11:15 75 20 174/75 96 Room Air 07/03/17 08:32 98.6 Hospital Course Labs (last 24 hrs) Laboratory Tests 07/03/17 06:41: White Blood Count 7.5, Red Blood Count 4.04L, Hemoglobin 11.3L, Hematocrit 35, Mean Corpuscular Volume 88, Mean Corpuscular Hemoglobin 28, Mean Corpuscular Hemoglobin Concent 32, Red Cell Distribution Width 15.9H, Platelet Count 304, Mean Platelet Volume 9.1, Neutrophils (%) (Auto) 67, Lymphocytes (%) (Auto) 14, Monocytes (%) (Auto) 14H, Eosinophils (%) (Auto) 5, Basophils (%) (Auto) 1, Neutrophils # (Auto) 5.0, Lymphocytes # (Auto) 1.0, Monocytes # (Auto) 1.0, Eosinophils # (Auto) 0.4H, Basophils # (Auto) 0.1, Sodium Level 133L, Potassium Level 3.9, Chloride Level 96L, Carbon Dioxide Level 28, Anion Gap 9, Blood Urea Nitrogen 10, Creatinine 0.53L, Estimat Glomerular Filtration Rate > 60, BUN/ Creatinine Ratio 19, Glucose Level 92, Calcium Level 8.9, Total Bilirubin 0.8, Aspartate Amino Transf (AST/SGOT) 20, Alanine Aminotransferase (ALT/SGPT) 11, Alkaline Phosphatase 90, Total Protein 6.0L, Albumin 2.9L Microbiology 06/30/17 Blood Culture - Preliminary, Resulted No growth Pending Labs Discharge Home Medications: Active Scripts Active Xarelto (Rivaroxaban) 20 Mg Tablet 20 Mg PO DAILY Cefdinir 300 Mg Capsule 300 Mg PO BID Metoprolol Succinate 25 Mg Tab.er.24h 25 Mg PO DAILY Alprazolam 0.25 Mg Tablet 0.25 Mg PO Q4HR PRN Depakote Sprinkle (Divalproex Sodium) 125 Mg Cap 125 Mg PO BID Mucinex (Guaifenesin) 600 Mg Tab.er.12h 600 Mg PO BID Reported Multivitamins (Multivitamin) 1 Each Tablet 1 Tab PO DAILY Zantac (Ranitidine HCl) 150 Mg Tablet 150 Mg PO BID Vitamin B Complex 1 Each Tablet 1 Tab PO DAILY Vitamin C (Ascorbate Calcium) 500 Mg Tablet 500 Mg PO DAILY Lecithin (Lecithin, Soy) 400 Mg Capsule 400 Mg PO BID Zyrtec (Cetirizine HCl) 10 Mg Capsule 10 Mg PO DAILY Sotalol (Sotalol HCl) 120 Mg Tablet 120 Mg PO BID Celebrex (Celecoxib) 200 Mg Capsule 200 Mg PO BID Aspirin Ec 81 Mg (Aspirin) 81 Mg Tabec 81 Mg PO BID Instructions to patient/family Please see electonic discharge instructions given to patient. Clinical Quality Measures DVT/VTE Risk/Contraindication: Risk Factor Score Per Nursin RFS Level Per Nursing on Admit: 4+=Very High Other: SCDS CONTRAINDICATED, LEGS ARE INFLAMMED PÉREZ HOWARD DO Jul 03, 2017 09:39
[2017-07-03 11:15] VITALS: BP 174/75
[2017-07-03] MEDS ORDERED: RIVA20TA PO (11:20)
[2017-07-03] MEDS ORDERED: TROUGH ORDER-PHARMACY XX NR (16:00)
== END 2017-07-03 11:15 | disposition home health service (06) | DRG 603 ==
LOC: EDUNIT# 14:30 → ER 14:32 → 4TH 15:35
PROVIDERS: ADMIT Internal Medicine; ATTEND Internal Medicine
DX: L03.115 Cellulitis of right lower limb (principal); I87.2 Venous insufficiency (chronic) (peripheral); E87.1 Hypo-osmolality and hyponatremia; I47.1 Supraventricular tachycardia; L97.819 Non-pressure chronic ulcer of other part of right lower leg with unspecified severity; F03.90 Unspecified dementia, unspecified severity, without behavioral disturbance, psychotic disturbance, mood disturbance, and anxiety; M06.9 Rheumatoid arthritis, unspecified; M81.0 Age-related osteoporosis without current pathological fracture; F41.9 Anxiety disorder, unspecified; J30.2 Other seasonal allergic rhinitis; Z86.79 Personal history of other diseases of the circulatory system; M19.91 Primary osteoarthritis, unspecified site; Z87.891 Personal history of nicotine dependence; R53.81 Other malaise; Z91.81 History of falling
CPT/HCPCS: 36415; 80053; 80202; 81000; 85007; 85025; 85027; 87040; 93005; 96365; 99284

== ENCOUNTER 2017-08-03 07:20 | Inpatient (IN) | payer MEDICARE ==
[~2017-08-03] VITALS: Ht 162.6 cm; Wt 59.5 kg
[~2017-08-03 07:20] MED LIST changes: +ALPR0.254 PO; +APIX2.5T PO; +APIX5TAB PO; +ASCO-262 PO; +CEFD300C3 PO; +CELE200C PO; +CETI10CA PO; +DVL125C PO; +GUAI600T43 PO; +LECI400C PO; +METO-387 PO; +MULT1TAB69 PO; +RANI150T15 PO; +RIVA20TA PO; +SOTA120T PO; +VITA1TAB17 PO
[2017-08-03] MEDS ORDERED: NS IV 500 ML 500 ML IV ONE (07:30)
--- NOTE | 2017-08-03 07:30 | ED Fall/Injury ---
General Stated Complaint: FALL/HEAD INJ Source: patient, EMS Exam Limitations: clinical condition History of Present Illness Time seen by provider: 07:23 Initial Comments Patient presents to ER by EMS with a chief complaint of thinks she fell hit her head against the table. She does not ever she lost consciousness. The patient is confused per EMS following what year it is but does know who she is. She is unable to give much meaningful history at this time. She has a laceration to her left forehead that was dressed in the field by EMS as well as EMS that she was complaining of some left elbow pain and left foot pain. She has compression wraps/Unna boots to her bilateral lower extremities but is not sure who is taking care of the mother who her doctor is. She denies shortness of breath, nausea, pain anywhere other than her neck with a c-collar is in place. EMS states there was quite a bit of blood at the scene the patient looks like she had lost maybe 2 or 300 cc per their estimation. EMS states that the only medical history that he get out of her results and had a heart attack about 4 years ago. Allergies and Home Medications Allergies Coded Allergies: Penicillins (Verified Adverse Reaction, Intermediate, swelling, 06/30/17) aspartame (Verified Adverse Reaction, Intermediate, elevated heart rate/ feeling ill, 06/30/17) Home Medications Alprazolam 0.25 Mg Tablet, 0.25 MG PO Q4HR PRN for ANXIETY, #30 Prescribed by: PÉREZ HOWARD on 07/03/17 0932 Ascorbate Calcium 500 Mg Tablet, 500 MG PO DAILY, (Reported) Aspirin 81 Mg Tabec, 81 MG PO BID, (Reported) Cefdinir 300 Mg Capsule, 300 MG PO BID, #14 Prescribed by: PÉREZ HOWARD on 07/03/17 0932 Celecoxib 200 Mg Capsule, 200 MG PO BID, (Reported) Cetirizine HCl 10 Mg Capsule, 10 MG PO DAILY, (Reported) Divalproex Sodium 125 Mg Cap, 125 MG PO BID, #60 Prescribed by: PÉREZ HOWARD on 07/03/17 0932 Guaifenesin 600 Mg Tab.er.12h, 600 MG PO BID, #30 Prescribed by: PÉREZ HOWARD on 07/03/17 0932 Lecithin, Soy 400 Mg Capsule, 400 MG PO BID, (Reported) Metoprolol Succinate 25 Mg Tab.er.24h, 25 MG PO DAILY, #30 Prescribed by: PÉREZ HOWARD on 07/03/17 0932 Multivitamin 1 Each Tablet, 1 TAB PO DAILY, (Reported) Ranitidine HCl 150 Mg Tablet, 150 MG PO BID, (Reported) Rivaroxaban 20 Mg Tablet, 20 MG PO DAILY, #30 Prescribed by: PÉREZ HOWARD on 07/03/17 1120 Sotalol HCl 120 Mg Tablet, 120 MG PO BID, (Reported) Vitamin B Complex 1 Each Tablet, 1 TAB PO DAILY, (Reported) Constitutional: see HPI (we're only able to obtain a limited review of systems given the patient's confusion), No chills, No diaphoresis, No fever Eyes: Denies Blindness, Denies Blurred Vision, Denies Pain Ears, Nose, Mouth, Throat: denies ear pain, denies ear discharge Respiratory: No cough, No short of breath Cardiovascular: No chest pain, Hx of Intervention (4 years ago), No palpitations, vascular heart diseas Gastrointestinal: No abdominal pain, No nausea Genitourinary: No discharge, No dysuria Musculoskeletal: joint pain (left elbow and her neck secondary to the collar) Psychiatric/Neurological: Denies Numbness, Denies Paresthesia Past Bialejg-Fvyykk-Jnipbu Hx Patient Social History Alcohol Beverage of Choice: Wine Recent Hopitalizations: No Seasonal Allergies Seasonal Allergies: Yes Surgeries History of Surgeries: Yes Surgeries: Appendectomy, Gallbladder, Hysterectomy, Orthopedic Respiratory History of Respiratory Disorde: No Cardiovascular History of Cardiac Disorders: Yes (TACHYCARDIA OCC) Neurological History of Neurological Disord: No Neurological Disorders: Dementia Reproductive System Sexually Transmitted Disease: No Genitourinary History of Genitourinary Disor: No Gastrointestinal History of Gastrointestinal Di: No Musculoskeletal Musculoskeletal Disorders: Osteoporosis, Rheumatoid Arthritis Endocrine History of Endocrine Disorders: No HEENT History of HEENT Disorders: No HEENT Disorders: Cataract Cancer History of Cancer: No Psychosocial History of Psychiatric Problem: No Integumentary History of Skin or Integumenta: No Blood Transfusions History of Blood Disorders: No Adverse Reaction to a Blood Tr: No Family Medical History Family Medial History: Arthritis 19 MOTHER Cardiovascular disease 19 MOTHER FH: lung cancer 19 FATHER Physical Exam Vital Signs Vital Sign - Last 12Hours 08/03/17 07:25 Temp 98.1 Pulse 65 Resp 18 B/P (MAP) 152/65 Pulse Ox 97 O2 Delivery Room Air Capillary Refill : General Appearance: WD/WN, no apparent distress HEENT: PERRL/EOMI, normal ENT inspection, TMs normal, pharynx normal, other ( face and nose nontender to palpation, teeth Chava maxilla without loose teeth or pain.) Neck: non-tender, supple, normal inspection, other (c-collar in place) Cardiovascular: normal peripheral pulses, regular rate, rhythm, no edema, no murmur Respiratory: chest non-tender, lungs clear, normal breath sounds Peripheral Pulses: 2+ Dorsalis Pedis (R), 2+ Left Dors-Pedis (L), 2+ Radial Pulses (R), 2+ Radial Pulses (L) Gastrointestinal: normal bowel sounds, non tender, no organomegaly Pelvic: normal external exam, other (no hip pain on compression) Back: normal inspection, no vertebral tenderness Extremities: normal range of motion, no calf tenderness, normal capillary refill, other (bilateral Unna boots in place) Neurologic/Psychiatric: medication manager II-XII nml as tested, no motor/sensory deficits, alert, disoriented x 3 (oriented to self only) Skin: warm/dry, other (laceration above left eye) Lymphatic: no adenopathy Barbi Coma Score Best Eye Response: (3) Open to Voice Best Verbal Response: (4) Confused Conversation Best Motor Response: (6) Obeys Commands Barbi Total: 13 Laceration Repair : Wound Location: Face Other Wound Location above left eye one cm Wound Length (cm): 2.5 Wound's Depth, Shape: sub Q Wound Explored: clean Irrigated w/ Saline (ccs): 25 Betadine Prep?: No (chlorhexidine) Anesthesia: 1% Lidocaine Volume Anesthetic (ccs): 3 Wound Debrided: minimal Suture: Ethlion Suture Size: 4-0 Number of Sutures: 6 Progress Patient was cleaned with chlorhexidine soap water and then irrigated with 25 cc of the same. The wound was infiltrated with 1% lidocaine until the patient was numb in the area and then using a 4-0 Ethilon interrupted simple suture we obtained hemostasis and closed and approximated the wound edges. There is no foreign body noted on exam and no debridement necessary. Patient tolerated the procedure very well. Progress/Results/Core Measures Results/Orders Lab Results Laboratory Tests Test 08/03/17 07:35 08/03/17 08:55 Range/Units Urine Color YELLOW Urine Clarity SLIGHTLY CLOUDY Urine pH 5 5-9 Urine Specific [place] 1.020 1.016-1.022 Urine Protein 2+ H NEGATIVE Urine Glucose (UA) NEGATIVE NEGATIVE Urine Ketones 1+ H NEGATIVE Urine Nitrite NEGATIVE NEGATIVE Urine Bilirubin NEGATIVE NEGATIVE Urine Urobilinogen 4 H NORMAL MG/DL Urine Leukocyte Esterase 2+ H NEGATIVE Urine RBC (Auto) NEGATIVE NEGATIVE Urine RBC NONE /HPF Urine WBC 2-5 /HPF Urine Squamous Epithelial Cells NONE /HPF Urine Crystals PRESENT H /LPF Urine Calcium Oxalate Crystals LARGE H /LPF Urine Bacteria NEGATIVE /HPF Urine Casts NONE /LPF Urine Mucus NEGATIVE /LPF Urine Culture Indicated NO Urine Opiates Screen POSITIVE H NEGATIVE Urine Oxycodone Screen NEGATIVE NEGATIVE Urine Methadone Screen NEGATIVE NEGATIVE Urine Propoxyphene Screen NEGATIVE NEGATIVE Urine Barbiturates Screen NEGATIVE NEGATIVE Ur Tricyclic Antidepressants Screen NEGATIVE NEGATIVE Urine Phencyclidine Screen NEGATIVE NEGATIVE Urine Amphetamines Screen NEGATIVE NEGATIVE Urine Methamphetamines Screen NEGATIVE NEGATIVE Urine Benzodiazepines Screen POSITIVE H NEGATIVE Urine Cocaine Screen NEGATIVE NEGATIVE Urine Cannabinoids Screen NEGATIVE NEGATIVE White Blood Count 10.6 4.3-11.0 10^3/uL Red Blood Count 3.26 L 4.35-5.85 10^6/uL Hemoglobin 9.6 L 11.5-16.0 G/DL Hematocrit 29 L 35-52 % Mean Corpuscular Volume 90 80-99 FL Mean Corpuscular Hemoglobin 29 25-34 PG Mean Corpuscular Hemoglobin Concent 33 32-36 G/DL Red Cell Distribution Width 18.0 H 10.0-14.5 % Platelet Count 166 130-400 10^3/uL Mean Platelet Volume 9.6 7.4-10.4 FL Neutrophils (%) (Auto) 74 42-75 % Lymphocytes (%) (Auto) 7 L 12-44 % Monocytes (%) (Auto) 15 H 0-12 % Eosinophils (%) (Auto) 3 0-10 % Basophils (%) (Auto) 1 0-10 % Neutrophils # (Auto) 7.9 H 1.8-7.8 X 10^3 Lymphocytes # (Auto) 0.7 L 1.0-4.0 X 10^3 Monocytes # (Auto) 1.6 H 0.0-1.0 X 10^3 Eosinophils # (Auto) 0.4 H 0.0-0.3 10^3/uL Basophils # (Auto) 0.1 0.0-0.1 10^3/uL Neutrophils % (Manual) 72 % Lymphocytes % (Manual) 3 % Monocytes % (Manual) 18 % Eosinophils % (Manual) 7 % Basophils % (Manual) 0 % Band Neutrophils 0 % Anisocytosis MODERATE Sodium Level 129 L 135-145 MMOL/L Potassium Level 5.5 H 3.6-5.0 MMOL/L Chloride Level 90 L 98-107 MMOL/L Carbon Dioxide Level 30 21-32 MMOL/L Anion Gap 9 5-14 MMOL/L Blood Urea Nitrogen 22 H 7-18 MG/DL Creatinine 0.57 L 0.60-1.30 MG/DL Estimat Glomerular Filtration Rate > 60 BUN/Creatinine Ratio 39 Glucose Level 83 70-105 MG/DL Calcium Level 9.0 8.5-10.1 MG/DL Magnesium Level 2.0 1.8-2.4 MG/DL Total Bilirubin 1.6 H 0.1-1.0 MG/DL Aspartate Amino Transf (AST/SGOT) 51 H 5-34 U/L Alanine Aminotransferase (ALT/SGPT) 17 0-55 U/L Alkaline Phosphatase 105 40-136 U/L Ammonia 21 11-32 UMOL/L Troponin I < 0.30 <0.30 NG/ML Total Protein 6.3 L 6.4-8.2 GM/DL Albumin 3.1 L 3.2-4.5 GM/DL Serum Alcohol < 10 <10 MG/DL My Orders Orders - JEFFERY RICARDO Ct Head/Face/Cervical Wo (08/03/17 07:30) Saline Lock/Iv-Start (08/03/17 07:30) Alcohol (08/03/17 07:30) Ammonia (08/03/17 07:30) Cbc With Automated Diff (08/03/17 07:30) Comprehensive Metabolic Panel (08/03/17 07:30) Drug Screen Stat (Urine) (08/03/17 07:30) Magnesium (08/03/17 07:30) Troponin I (08/03/17 07:30) Ua Culture If Indicated (08/03/17 07:30) Chest 1 View, Ap/Pa Only (08/03/17 07:30) Elbow, Left, 3 Views (08/03/17 07:30) Ns Iv 500 Ml (Sodium Chloride 0.9%) (08/03/17 07:30) Type And Screen (08/03/17 07:44) Blood Culture (08/03/17 08:40) Sputum Culture (08/03/17 08:40) Ns Iv 1000 Ml (Sodium Chloride 0.9%) (08/03/17 08:41) Manual Differential (08/03/17 08:55) Dipht,Pertuss(Acell),Tet Adult (Boostrix (08/03/17 10:00) Lidocaine 1% Injection (Xylocaine 1% Inj (08/03/17 10:00) Ceftriaxone Injection (Rocephin Injectio (08/03/17 10:15) Medications Given in ED Current Medications Medications Dose Ordered Sig/Mayra Route Start Time Stop Time Status Last Admin Dose Admin Ceftriaxone Sodium 1000 mg/ Sodium Chloride 50 ml @ 100 mls/hr ONCE ONCE IV 08/03/17 10:15 08/03/17 10:44 DC 08/03/17 10:39 100 MLS/HR Diphtheria/ Tetanus/Acell Pertussis 0.5 ml ONCE ONCE IM 08/03/17 10:00 08/03/17 10:01 DC 08/03/17 10:12 0.5 ML Lidocaine HCl 20 ml ONCE ONCE INJ 08/03/17 10:00 08/03/17 10:01 DC 08/03/17 10:13 10 ML Sodium Chloride 500 ml @ 0 mls/hr Q0M ONCE IV 08/03/17 07:30 08/03/17 07:34 DC 08/03/17 08:16 500 MLS/HR Sodium Chloride 1,000 ml @ 0 mls/hr Q0M ONCE IV 08/03/17 08:41 08/03/17 08:42 DC 08/03/17 10:13 1,000 MLS/HR Vital Signs/I&O Vital Sign - Last 12Hours 08/03/17 07:25 Temp 98.1 Pulse 65 Resp 18 B/P (MAP) 152/65 Pulse Ox 97 O2 Delivery Room Air Progress Note #1: Time: 08:39 Progress Note Patient still altered but is a little better history that she has been a little short of breath and coughing up some phlegm for the past several days which would go with her right middle lung opacity being a pneumonia. Whether or not it is a postobstructive pneumonia or not remains to be seen. It is reasonable to admit her for pneumonia get her treated with antibiotics and have them work her up further inpatient. Progress Note #2: Time: 08:45 Progress Note C-collar cleared and the patient has no pain on full range of motion to her neck. Hyponatremia appears to be chronic she's been in the 120s 130s before. Diagnostic Imaging Diagonstic Imaging: CT Plain Films/CT/US/NM/MRI: head (C-spine and maxillofacial) Comments No intracranial bleed, mass, mass effect, edema. No osseous abnormality. Cervical spine without fracture acutely. Maxillofacial without acute osseous abnormality. Awaiting radiology over read. [facility] [place], [place] NAME: MAGNOLIA THORPE [facility] REC#: [id number] PT STATUS: REG ER : 1935 PHYSICIAN: JEFFERY RICARDO MD ADMIT DATE: 08/03/17/ER Draft Date of Exam:08/03/17 CT HEAD/FACE/CERVICAL WO PROCEDURE: CT head, face, and cervical spine without contrast. TECHNIQUE: Multiple contiguous axial images were obtained through the head, neck, and facial bones without the use of intravenous contrast. Sagittal and coronal reformations through the cervical spine and facial bones were also performed. INDICATION: Fall with head, face and neck injury CT head: Ventricles and sulci are diffusely prominent. There is no evidence of hemorrhage. There is no abnormal mass effect or shift of midline structures. The calvarium is intact. IMPRESSION: No CT evidence of acute intracranial abnormality. Maxillofacial CT: There is laceration and contusion involving the left supraorbital scalp region. The globes are intact. There is no evidence of retrobulbar hematoma. No fracture is identified. There is no paranasal sinus air-fluid level. Temporomandibular joints are intact with advanced degenerative change. IMPRESSION: Left supraorbital contusion and laceration without other evidence of acute maxillofacial abnormality. 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 CT cervical spine: Cervical spinal curvature and alignment are maintained. There is moderate narrowing of the C4-5 and C5-6 disc spaces with endplate spurring. Mild diffuse degenerative facet arthropathy is also noted. There is no evidence of an acute fracture or subluxation. No paraspinous hematoma is identified. There is pleural thickening noted on the right in the visualized lung apices. IMPRESSION: Cervical spondylosis without CT evidence of acute cervical spinal abnormality. Dictated on workstation # [id number] Dict: 08/03/17815 Trans: 08/03/17 0832 [facility] [id number] Interpreted by: FRANCISCO GATES MD Electronically signed by: Reviewed: Reviewed by Me Diagonstic Imaging: Xray Plain Films/CT/US/NM/MRI: chest Comments Infiltrate versus atelectasis versus possible spiculated opacity over right middle lobe on one view x-ray. Not seen on previous x-rays from January 2015. Discussed with radiology and agree with getting a CT scan non emergently to further work this up. Reviewed: Reviewed by Me, Discussed w/Radiologist (Dr. Guardado; difficult to tell from infiltrate/atelectasis versus spiculated mass and he would recommend nonemergent CT for further workup.) Diagonstic Imaging: Xray Plain Films/CT/US/NM/MRI: elbow (left) Comments No acute osseous abnormality. No soft tissue edema VIA [facility]. [place], [place] NAME: MAGNOLIA THORPE [facility] REC#: [id number] PT STATUS: REG ER : 1935 PHYSICIAN: JEFFERY RICARDO MD ADMIT DATE: 08/03/17/ER Draft Date of Exam:08/03/17 ELBOW, LEFT, 3 VIEWS EXAMINATION: Left elbow at 0828 hours. INDICATION: Injury, elbow pain. TECHNIQUE: Three views of the left shoulder were obtained. FINDINGS: There is no fracture, dislocation, or acute bony abnormality evident. There is minimal irregularity of the junction of the radial head and neck on the lateral view. This finding was also present on the prior left forearm exam of 04/03/2016 and consequently unlikely related to an acute injury. The posterior fat-pad is not elevated. The elbow joint itself is fairly well-maintained. IMPRESSION: There is no evidence for an acute bony abnormality. Dictated on workstation # [id number] Dict: 08/03/17818 Trans: 08/03/17 0834 [id number] Interpreted by: PABLO GUARDADO MD Electronically signed by: Reviewed: Reviewed by Me Departure Communication (Admissions) Time/Spoke to Admitting Phy: 10:[address] Silverman: Discussed the case and she agrees with Rocephin and condition for a community acquired pneumonia and will see the patient. Impression Impression: Primary Impression: Fall Qualified Codes: W19.XXXA - Unspecified fall, initial encounter Additional Impressions: Laceration of face Qualified Codes: S01.81XA - Laceration without foreign body of other part of head, initial encounter Right middle lobe pneumonia Qualified Codes: J18.1 - Lobar pneumonia, unspecified organism Chronic hyponatremia Disposition: ADMITTED INPATIENT Condition: Stable Admissions Decision to Admit Reason: Admit from ER (General) Decision to Admit/Date: Aug 03, 2017 Time/Decision to Admit Time: 11:13 Departure-Patient Inst. Referrals: AVELINA JUAREZ MD (PCP/Family) Primary Care Physician Copy Copies To 1: AVELINA JUAREZ MD, TITUS J Aug 03, 2017 07:30
[2017-08-03 07:44] LABS: BILIRUBIN,URINE NEGATIVE (NEGATIVE); KETONES,URINE 1+ (NEGATIVE); LEUKOCYTE ESTERASE ,URINE 2+ (NEGATIVE); NITRITE,URINE NEGATIVE (NEGATIVE); PH,URINE 5 (5-9); PROTEIN,URINE 2+ (NEGATIVE); UROBILINOGEN,URINE 4 MG/DL (NORMAL)
[2017-08-03 08:05] LABS: CALCIUM OXALATE CRYSTALS,UR LARGE /LPF
--- NOTE | 2017-08-03 08:32 | Diagnostic Imaging Report ---
PROCEDURE: CT head, face, and cervical spine without contrast. TECHNIQUE: Multiple contiguous axial images were obtained through the head, neck, and facial bones without the use of intravenous contrast. Sagittal and coronal reformations through the cervical spine and facial bones were also performed. INDICATION: Fall with head, face and neck injury CT head: Ventricles and sulci are diffusely prominent. There is no evidence of hemorrhage. There is no abnormal mass effect or shift of midline structures. The calvarium is intact. IMPRESSION: No CT evidence of acute intracranial abnormality. Maxillofacial CT: There is laceration and contusion involving the left supraorbital scalp region. The globes are intact. There is no evidence of retrobulbar hematoma. No fracture is identified. There is no paranasal sinus air-fluid level. Temporomandibular joints are intact with advanced degenerative change. IMPRESSION: Left supraorbital contusion and laceration without other evidence of acute maxillofacial abnormality. 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 CT cervical spine: Cervical spinal curvature and alignment are maintained. There is moderate narrowing of the C4-5 and C5-6 disc spaces with endplate spurring. Mild diffuse degenerative facet arthropathy is also noted. There is no evidence of an acute fracture or subluxation. No paraspinous hematoma is identified. There is pleural thickening noted on the right in the visualized lung apices. IMPRESSION: Cervical spondylosis without CT evidence of acute cervical spinal abnormality. Dictated by: Dictated on workstation # [id number]
--- NOTE | 2017-08-03 08:35 | Diagnostic Imaging Report ---
EXAMINATION: Left elbow at 0828 hours. INDICATION: Injury, elbow pain. TECHNIQUE: Three views of the left shoulder were obtained. FINDINGS: There is no fracture, dislocation, or acute bony abnormality evident. There is minimal irregularity of the junction of the radial head and neck on the lateral view. This finding was also present on the prior left forearm exam of 04/03/2016 and consequently unlikely related to an acute injury. The posterior fat-pad is not elevated. The elbow joint itself is fairly well-maintained. IMPRESSION: There is no evidence for an acute bony abnormality. Dictated by: Dictated on workstation # [id number]
[2017-08-03] MEDS ORDERED: NS IV 1000 ML 1,000 ML IV ONE (08:41)
--- NOTE | 2017-08-03 08:41 | Diagnostic Imaging Report ---
Supine AP chest at 8:26 AM. INDICATION: Trauma. Chest pain. FINDINGS: The heart is borderline enlarged, and the heart does seem somewhat more prominent than noted on the prior exam of 02/24/2015. Furthermore, in the interval since the prior study, a 3.8 x 5.0-cm soft tissue density has developed along the right heart border. There is some fluid in the right lung base and in the minor fissure on the right, and this abnormal density adjacent to the right heart border could be secondary to pneumonia/atelectasis; however, I do feel that the primary concern is that this new finding is neoplastic in nature. A nonemergent CT chest exam would be recommended for further evaluation. The central pulmonary vascularity is somewhat striking compared to the prior study, and there could be an element of mild pulmonary congestion present. The lungs are otherwise clear. The mediastinum is not widened. The osseous structures are intact. 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 IMPRESSION: 1. In the interval since the prior study, a 3.8 x 5.0-cm soft tissue density has developed along the right heart border. While this could be related to pneumonia/atelectasis, the possibility that this is neoplastic in nature should be the primary concern. Recommendations as above. 2. There is borderline cardiomegaly and a small amount of fluid in the right lung base and minor fissure. There may also an element of mild pulmonary congestion present. 3. These results were discussed with Dr. Dela Cruz in the ER. Dictated by: Dictated on workstation # [id number]
[2017-08-03 09:22] LABS: BASOPHILS # (AUTO) 0.1 10^3/uL (0.0-0.1); BASOPHILS % (AUTO) 1 % (0-10); EOSINOPHILS # (AUTO) 0.4 10^3/uL (0.0-0.3); EOSINOPHILS % (AUTO) 3 % (0-10); LYMPHOCYTES # (AUTO) 0.7 X 10^3 (1.0-4.0); LYMPHOCYTES % (AUTO) 7 % (12-44); MEAN CORPUSCULAR HEMOGLOBIN 29 PG (25-34); MEAN CORPUSCULAR HGB CONC 33 G/DL (32-36); MEAN CORPUSCULAR VOLUME 90 FL (80-99); MEAN PLATELET VOLUME 9.6 FL (7.4-10.4); MONOCYTES # (AUTO) 1.6 X 10^3 (0.0-1.0); MONOCYTES % (AUTO) 15 % (0-12); NEUTROPHILS # (AUTO) 7.9 X 10^3 (1.8-7.8); NEUTROPHILS % (AUTO) 74 % (42-75); PLATELET COUNT 166 10^3/uL (130-400); RED BLOOD COUNT 3.26 10^6/uL (4.35-5.85); WHITE BLOOD COUNT 10.6 10^3/uL (4.3-11.0)
[2017-08-03 09:50] LABS: ALANINE AMINOTRANSFERASE 17 U/L (0-55); ALBUMIN 3.1 GM/DL (3.2-4.5); ALCOHOL < 10 MG/DL (<10); AMMONIA 21 UMOL/L (11-32); ANION GAP 9 MMOL/L (5-14); ANISOCYTOSIS MODERATE; ASPARTATE AMINO TRANSFERASE 51 U/L (5-34); BAND NEUTROPHILS 0 %; BASOPHILS % (MANUAL) 0 %; BILIRUBIN,TOTAL 1.6 MG/DL (0.1-1.0); BLOOD UREA NITROGEN 22 MG/DL (7-18); BUN/CREATININE RATIO 39; CARBON DIOXIDE 30 MMOL/L (21-32); CHLORIDE 90 MMOL/L (98-107); CREATININE SERUM 0.57 MG/DL (0.60-1.30); EOSINOPHILS % (MANUAL) 7 %; GFR ESTIMATED > 60; GLUCOSE 83 MG/DL (70-105); LYMPHOCYTES % (MANUAL) 3 %; NEUTROPHILS % (MANUAL) 72 %; SODIUM 129 MMOL/L (135-145); TOTAL PROTEIN 6.3 GM/DL (6.4-8.2)
[2017-08-03 09:52] LABS: POTASSIUM 5.5 MMOL/L (3.6-5.0)
[2017-08-03 10:00] LABS: TROPONIN I < 0.30 NG/ML (<0.30)
[2017-08-03] MEDS ORDERED: TETANUS,DIPTH,PERTUSS P/F (BOOSTRIX) 0.5 ML VIAL IM ONE (10:00)
[2017-08-03] MEDS ORDERED: LIDOCAINE 1% INJ 20 ML (XYLOCAINE) VIAL INJ ONE (10:00)
[2017-08-03] MEDS ORDERED: cefTRIAXone INJECTION 1,000 MG in NS (IVPB) 50 ML IV ONE (10:15)
--- NOTE | 2017-08-03 11:00 | History & Physical-Hospitalist ---
HPI History of Present Illness: HPI/Chief Complaint CC: Fall HPI: Pt is a 81yo CF with a PMH of SVT/A-fib, RA, and paranoia who presented to the ER after a fall. She is awake and alert but is unable to provide me any history in regards to the fall. She remembers yesterday and reports it was a normal day but does not remember anything from this morning or what happened to make her fall. Most of the HPI comes from her daughter. Her daughter checks on her every morning at 6am and found her this morning in her bedroom on the floor with a large cut on the right side of her forehead with "blood everywhere." She called EMS who brought her here. They are both unsure how long she was down for. She is on a blood thinner per her manager web application. On ROS she does report a cough for the past week or so with dark sputum unimproved by Mucinex. She thinks she may have had fevers but has not checked. Source: patient, family, RN/MD Exam Limitations: clinical condition Date Seen 08/03/17 Time Seen by Provider: 10:45 Attending Physician Nadine Hunter MD PCP Andrews Tran MD Referring Physician Date of Admission Aug 03, 2017 at 10:15 Home Medications & Allergies Home Medications Reviewed patient Home Medication Reconciliation Form Allergies Allergies Coded Allergies Penicillins (Verified Adverse Reaction, Intermediate, swelling, 06/30/17) aspartame (Verified Adverse Reaction, Intermediate, elevated heart rate/ feeling ill, 06/30/17) Past Pcesxom-Sqmbom-Epevqt Hx Patient Social History Employed/Student: retired Alcohol Use: Denies Use Number of Drinks Today: Alcohol Beverage of Choice: Wine Recreational Drug Use: No Smoking Status: Former Smoker Cigaretts per day: 10 Recent Foreign Travel: No Contact w/other who traveled: No Recent Hopitalizations: No Recent Infectious Disease Expo: No Immunizations Up To Date Tetanus Booster (TDap): Unknown Seasonal Allergies Seasonal Allergies: Yes Surgeries Yes Appendectomy, Gallbladder, Hysterectomy, Orthopedic Respiratory No Cardiovascular Yes (TACHYCARDIA OCC) Atrial Fibrillation Neurological Yes Dementia Reproductive System Sexually Transmitted Disease: No Genitourinary No Gastrointestinal No Musculoskeletal Osteoporosis, Rheumatoid Arthritis Endocrine History of Endocrine Disorders: No HEENT History of HEENT Disorders: No HEENT Disorders: Cataract Cancer No Psychosocial History of Psychiatric Problem: Yes (paranoia ) Integumentary History of Skin or Integumenta: No Blood Transfusions History of Blood Disorders: No Adverse Reaction to a Blood Tr: No Family Medical History Family Hx: Arthritis 19 MOTHER Cardiovascular disease 19 MOTHER FH: lung cancer 19 FATHER Review of Systems Constitutional: chills, No diaphoresis, fever EENTM: No blurred vision, No double vision, No throat pain Respiratory: cough, orthopnea, phlegm, short of breath, No wheezing Cardiovascular: No chest pain, palpitations Gastrointestinal: No abdominal pain, No constipation, No diarrhea, No nausea, No vomiting Genitourinary: No dysuria, No frequency Musculoskeletal: joint pain Psychiatric/Neurological: Denies Numbness, Denies Seizure Physical Exam Physical Exam Vital Signs Vital Sign - Last 12Hours 08/03/17 07:25 Temp 98.1 Pulse 65 Resp 18 B/P (MAP) 152/65 Pulse Ox 97 O2 Delivery Room Air Capillary Refill : Less Than 3 Seconds General Appearance: No Apparent Distress, WD/WN HEENT: PERRL/EOMI Respiratory: No Accessory Muscle Use, No Respiratory Distress Cardiovascular: Regular Rate, Rhythm, No JVD, No Murmur Gastrointestinal: Normal Bowel Sounds, Non Tender, Soft Extremity: Non Tender, No Calf Tenderness, Pedal Edema (trace) Neurologic/Psychiatric: Alert, No Facial Droop, Other (oriented to self and place) Skin: Ecchymosis (over left eye), Other (jim flaking skin under unna boots, no visible ulcers/breakdown; 3-4cm laceration just above left eyebrow) Results Results/Procedures Lab Laboratory Tests 08/03/17 08:[address] HEAD/FACE/CERVICAL WO:No CT evidence of acute intracranial abnormality. Left supraorbital contusion and laceration without other evidence of acute maxillofacial abnormality. Cervical spondylosis without CT evidence of acute cervical spinal abnormality. CXR: IMPRESSION: 1. In the interval since the prior study, a 3.8 x 5.0-cm soft tissue density has developed along the right heart border. While this could be related to pneumonia/atelectasis, the possibility that this is neoplastic in nature should be the primary concern. 2. There is borderline cardiomegaly and a small amount of fluid in the right lung base and minor fissure. There may also an element of mild pulmonary congestion present. ELBOW, LEFT, 3 VIEWS: IMPRESSION: There is no evidence for an acute bony abnormality. Assessment/Plan Admission Diagnosis CAP Assessment and Plan See Problems Diagnosis/Problems Diagnosis/Problems (1) Right middle lobe pneumonia Status: Acute Assessment & Plan: CXR Concerning for PNA vs neoplasm Will get CT to assist in diagnosis Continue abx (Ceftriaxone Day #1), does not meet sepsis criteria- this is not sepsis Will get blood cultures, strep pneumo/legionella antigens MAT protocol Encourage IS Pneumonia vaccine screen Qualifiers: Qualified Codes: J18.1 - Lobar pneumonia, unspecified organism (2) Mass of right lung Status: Acute Assessment & Plan: Newly developed since last CXR Concerning for post obstruction pna now Will get CT as above, consider Pulm or Onc consult pending results (3) A-fib Status: Chronic Assessment & Plan: Unclear if solely a-fib vs history of SVT as well on Xarelto and follows with Dr. King in [place] Continue Sotalol (4) Laceration of face Status: Acute Assessment & Plan: Repaired in ER Wound Care and pressure dressing Qualifiers: Qualified Codes: S01.81XA - Laceration without foreign body of other part of head, initial encounter (5) Fall Status: Acute Assessment & Plan: Per daughter fell today and fell last week, will have PT/OT evaluate Place on Fall precautions Will get orthostatics Qualifiers: Qualified Codes: W19.XXXA - Unspecified fall, initial encounter (6) Hyperkalemia Status: Acute Assessment & Plan: Very mild and specimen hemolyzed Will recheck in AM (7) Rheumatoid arthritis Status: Chronic Assessment & Plan: On remicaid Q3 weeks, stable (8) Chronic hyponatremia Status: Chronic Assessment & Plan: Reviewing labs appears to be chronic, likely from Depakote Will trend and place on 1L fluid restrictoin (9) Normocytic anemia Status: Chronic Assessment & Plan: Near baseline, will trend No indication for transfusion at this time (10) Prophylactic measure Assessment & Plan: On Xarelto 1L Fluid restriction Will start probiotic as well NADINE HUNTER MD Aug 03, 2017 11:00
[2017-08-03] MEDS ORDERED: guaiFENesin (MUCINEX) 600 MG TAB PO PRN (11:30)
[2017-08-03] MEDS ORDERED: ACETAMINOPHEN 500 MG TAB (TYLENOL) PO PRN (12:00)
[2017-08-03] MEDS ORDERED: CATHETER FLUSH 10 ML SYR IV PRN (12:00)
[2017-08-03] MEDS ORDERED: ONDANSETRON 4 MG/2 ML (SDV) Z0FRAN IV PRN (12:00)
[2017-08-03 12:27] VITALS: BP 152/65
[2017-08-03] MEDS ORDERED: RT-ALBUTEROL/IPRATROPIUM 3 ML (DUONEB) VIAL INH PRN (12:45)
[2017-08-03] MEDS: NS IV 1000 ML 1,000 ML IV SCH (12:58)
[2017-08-03] MEDS ORDERED: METO-387 PO (14:22)
[2017-08-03] MEDS ORDERED: ALPR0.25 PO ×2 (14:22→14:48)
[2017-08-03] MEDS ORDERED: DVL125C PO (14:22)
[2017-08-03] MEDS ORDERED: RIVA20TA PO (14:22)
[2017-08-03] MEDS: RT-ALBUTEROL/IPRATROPIUM 3 ML (DUONEB) VIAL INH SCH ×3 (15:15→22:12)
--- NOTE | 2017-08-03 15:26 | Physical Therapy Evaluation ---
PT Evaluation-General Medical Diagnosis Admission Date Aug 03, 2017 at 10:15 Medical Diagnosis: pneumonia/hyponatremia Onset Date: Aug 03, 2017 Therapy Diagnosis Therapy Diagnosis: debility Height/Weight Height (Feet): 5 Height (Inches): 4.00 Weight (Pounds): 131 Weight (Ounces): 4.0 Precautions Precautions/Isolations: Fall Prevention, Standard Precautions Referral Physician: Herrera Reason for Referral: Evaluation/Treatment Medical History Pertinent Medical History: Atrial Fib, Dementia, [place], Rheumatoid Arthritis Current History EMS called secondary to patient fell and hit her head resulting in laceration and increase in confusion Daughter found patient Reviewed History: Yes Social History Home: Single Level Current Living Status: Alone Entry Into Home: Stairs With Railing PT Steps Into Home: 5 PT Steps Inside Home: 5 Other Obstacles: basement(daughter does laundry secondary to laundry room is in the basement Prior/Core FIM Prior Level of Function Functional [place] Measure 0=Not Assessed/NA 4=Minimal Assistance 1=Total Assistance 5=Supervision or Setup 2=Maximal Assistance 6=Modified [place] 3=Moderate Assistance 7=Complete [place] Bed Mobility: 6 Transfers (B,C,W/C) (FIM): 6 Gait: 7 per patient , she does no use a FWW or cane for mobility PT Evaluation-Current Subjective Patient agrees to PT. No c/o at this time. Pain Numeric Pain Scale: 0-No Pain Location: No Pain Reported Objective Patient Orientation: Person, Time, Situation Problem Solving: Fair Attachments: IV ROM/Strength ROM Lower Extremities bilateral LE WNL Strenght Lower Extremities bilateral LE WNL grossly Integumentary/Posture Integumentary refer to nursing notes Bowel Incontinence: No Bladder Incontinence: No Posture kyphotic Neuromuscular (Tone, Coordination, Reflexes) grossly intact Sensory Vision: Wears Glasses Hearing: Functional Sensation Right Lower Extremit: Intact Sensation Left Lower Extremity: Intact Transfers Functional [place] Measure 0=Not Assessed/NA 4=Minimal Assistance 1=Total Assistance 5=Supervision or Setup 2=Maximal Assistance 6=Modified [place] 3=Moderate Assistance 7=Complete [place] Transfers (B, C, W/C) (FIM): 5 Scootin Rollin Supine to/from Sit: 5 Sit to/from Stand: 5 Gait Mode of Locomotion: Walk Anticipated Mode of Locomotion: Walk Gait (FIM): 5 Distance (FIM): 3=150 ft Distance: 250' Gait Level of Assist: 5 Gait Persons Needed: 1 Gait Assistive Device: FWW Comments/Gait Description safe and functional with FWW ambulated 10' without FWW and is very unsafe Stairs Stairs (FIM): 2 #of Steps: 4 Level of Assist: 5 use of bilateral hand rails Balance Sitting Static: Normal Sitting Dynamic: Normal Standing Static: Normal Standing Dynamic: Normal Assessment/Needs 81 y.o. female, will benefit from short term skilled PT to address functional strength and mobility to improve current LOF and to safely return to home or care facility at maximum LOF. Rehab Potential: Good PT Foreign Language Professor Goals Foreign Language Professor Goals PT Custodial Goals Time Frame: Aug 10, 2017 Transfers (B,C,W/C) (FIM): 6 Gait (FIM): 6 Gait distance (FIM): 3=150 ft Distance: 300' Gait Level of Assist: 6 Gait Assistive Device: FWW PT Plan Problem List Problem List: Activity Tolerance, Safety Treatment/Plan Treatment Plan: Continue Plan of Care Treatment Plan: Education, Functional Activity Bart, Functional Strength, Gait , Safety, Therapeutic Exercise Treatment Duration: Aug 10, 2017 Frequency: 6 times per week Estimated Hrs Per Day: .5 hour per day Patient and/or Family Agrees t: Yes Safety Risks/Education Patient Education: Safety Issues Teaching Recipient: Patient Teaching Methods: Discussion Response to Teaching: Verbalize Understanding Discharge Recommendations Therapy D/C Recommendations: Home w/ Family Support, Physical Therapy Home Care Equpiment Recommendations-D/C: Front Wheeled Walker Time/GCodes Time In: 1450 Time Out: 1510 Total Billed Treatment Time: 20 Total Billed Treatment 1 visit EVLowC 20 min G Codes Necessary: Yes PT/OT Therapy GCodes Therapy Functional Limitation: Physical Therapy Test(s)/Tool used to determine: Level of Assistance Scale Functional Limitation-Current Charge Code: MOBCUR Modifier: CK Functional Limitation-Goal Charge Code: MOBGOAL Modifier: CARLOS CAMEJO PT Aug 03, 2017 15:26
--- NOTE | 2017-08-03 15:36 | Occupational Therapy Eval ---
OT Evaluation-General/PLF Medical Diagnosis Admission Date Aug 03, 2017 at 10:15 Medical Diagnosis: pneumonia/hyponatremia Onset Date: Aug 03, 2017 Therapy Diagnosis Therapy Diagnosis: weakness, decr self care Height/Weight Height (Feet): 5 Height (Inches): 4.00 Weight (Pounds): 131 Weight (Ounces): 4.0 Precautions Precautions/Isolations: Fall Prevention, Standard Precautions Referral Physician: Herrera Referral Reason: Evaluation/Treatment Medical History Pertinent Medical History: Atrial Fib, Dementia, [place], Rheumatoid Arthritis Additional Medical History Osteoporosis, paranoia Current History EMS called secondary to patient fell and hit her head resulting in laceration and increase in confusion. Daughter found patient. Mass found on R lung Reviewed History: Yes Social History Home: Single Level Current Living Status: Alone Entry Into Home: Stairs With Railing Steps Into Home: 5 Steps Inside Home: 5 Other Obstacles: basement(daughter does laundry secondary to laundry room is in the basement Daughter checks on her daily ADL-Prior Level of Function ADL PLOF Comments Pt rpeorted that she has been able to manage her basic self care needs. 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 She said she no longer drives. She doesn't normally use an AD for walking OT Current Status Subjective Pt seen in room, agreeable to OT. Pain reported 0/10 Appearance Pleasant, cooperative Mental Status/Objective Patient Orientation: Person, Confused (thinks it is and May) Attachments: IV Current Glasses/Contacts: Yes Hearing Aids: No Dentures/Partials: Yes Hand Dominance: Right Upper Extremity ROM Grossly WFL bilat Upper Extremity Strength grossly 4/5 bilat ADL-Treatment ADL-Current transferred off [facility] with CGA, FWW. Able to wipe with setup and manage clothing. Able to get a drink. Pt walked back to bed with CGA, FWW and was left up in recliner, chair alarm on, call light present. Functional [place] Measure 0=Not Assessed/NA 4=Minimal Assistance 1=Total Assistance 5=Supervision or Setup 2=Maximal Assistance 6=Modified [place] 3=Moderate Assistance 7=Complete IndependenceIRFPAI Quality Coding Scale 6 Independent with activity with or without an assistive device 5 Patient requires set up or clean up by helper. Patient completes activity by themselves 4 Supervision or touching assist (CGA). Tiro provide cues , steadying assist 3 The helper provides less than half the effort to complete the activity 2 The helper provides more than half the effort to complete the activity 1 Dependent. The helper does all the effort to complete an activity 7 Patient refused to complete or attempt activity 9 The patient did not perform the activity before the current illness or injury 88 Not attempted due to Medical conditions or safety concerns Education OT Patient Education: Purpose of tx/functional activities, Rehab process, Safety issues, Transfer techniques Teaching Recipient: Patient Teaching Methods: Discussion Response to Teaching: Verbalize Understanding, Reinforcement Needed OT Calcine Furnace Loader Goals Calcine Furnace Loader Goals Time Frame: Aug 10, 2017 Eating (FIM): 6 Grooming(FIM): 6 Bathing(FIM): 5 Upper Body Dressing(FIM): 5 Lower Body Dressing(FIM): 5 Toileting(FIM): 6 Toilet/Commode Transfer(FIM): 6 Shower Transfer(FIM): 5 Additional Goals: 2-Verbalize Understanding, 3-ImproveStrength/Bart 1=Demonstrate adherence to instructed precautions during ADL tasks. 2=Patient will verbalize/demonstrate understanding of assistive devices/ modifications for ADL. 3=Patient will improve strength/tolerance for activity to enable patient to perform ADL's. OT Education/Plan Problem List/Assessment Assessment: Decreased Safety Aware, Decreased UE Strength, Impaired Self-Care Skills Pt would benefit from skilled OT to increase her independence in basic self care to allow her to safely return to her home or other setting and to decrease caregiver burden Discharge Recommendations Plan/Recommendations: Continue POC Barriers to Progress decreased safety Treatment Plan/Plan of Care Treatment,Training & Education: Yes Patient would benefit from OT for education, treatment and training to promote independence in ADL's, mobility, safety and/or upper extremity function for ADL' s. Treatment Duration: Aug 10, 2017 Frequency: 5 times per week Estimated Hrs Per Day: .5 hour per day Agreement: Yes Rehab Potential: Good Time/GCodes Start Time: 15:10 Stop Time: 15:25 Total Time Billed (hr/min): 15 Billed Treatment Time visit, 15 minutes evaluation low intensity PT/OT Therapy GCodes Therapy Functional Limitation: Physical Therapy Test(s)/Tool used to determine: Level of Assistance Scale Functional Limitation-Current Charge Code: MOBCUR Modifier: CK Functional Limitation-Goal Charge Code: MOBGOAL Modifier: ALICIA APPIAH OT Aug 03, 2017 15:36
[2017-08-03 16:00] VITALS: BP 130/58
[2017-08-03] MEDS ORDERED: NS 100 ML (IVPB) BAG IV ONE (16:15)
[2017-08-03] MEDS ORDERED: IOHEXOL 350 MG/ML 100 ML (OMNIPAQUE 350) VIAL IV ONE (16:15)
[2017-08-03 16:52] VITALS: BP 169/66
[2017-08-03 20:00] VITALS: BP 143/60
[2017-08-03 23:25] VITALS: BP 125/59
[2017-08-04] MEDS: NS IV 1000 ML 1,000 ML IV SCH ×2 (01:47→15:37)
[2017-08-04] MEDS: RT-ALBUTEROL/IPRATROPIUM 3 ML (DUONEB) VIAL INH SCH ×6 (02:59→22:38)
[2017-08-04 04:10] VITALS: BP 113/54
[2017-08-04 06:41] LABS: BASOPHILS # (AUTO) 0.1 10^3/uL (0.0-0.1); BASOPHILS % (AUTO) 1 % (0-10); EOSINOPHILS # (AUTO) 0.3 10^3/uL (0.0-0.3); EOSINOPHILS % (AUTO) 4 % (0-10); LYMPHOCYTES # (AUTO) 0.6 X 10^3 (1.0-4.0); LYMPHOCYTES % (AUTO) 6 % (12-44); MEAN CORPUSCULAR HEMOGLOBIN 29 PG (25-34); MEAN CORPUSCULAR HGB CONC 32 G/DL (32-36); MEAN CORPUSCULAR VOLUME 91 FL (80-99); MONOCYTES # (AUTO) 1.2 X 10^3 (0.0-1.0); MONOCYTES % (AUTO) 14 % (0-12); NEUTROPHILS # (AUTO) 6.6 X 10^3 (1.8-7.8); NEUTROPHILS % (AUTO) 76 % (42-75); PLATELET COUNT 201 10^3/uL (130-400); RED BLOOD COUNT 2.97 10^6/uL (4.35-5.85); RED CELL DISTRIBUTION WIDTH 18.6 % (10.0-14.5); WHITE BLOOD COUNT 8.7 10^3/uL (4.3-11.0)
[2017-08-04 07:01] LABS: ANION GAP 13 MMOL/L (5-14); BLOOD UREA NITROGEN 19 MG/DL (7-18); BUN/CREATININE RATIO 37; CALCIUM 8.6 MG/DL (8.5-10.1); CARBON DIOXIDE 25 MMOL/L (21-32); CHLORIDE 94 MMOL/L (98-107); CREATININE SERUM 0.52 MG/DL (0.60-1.30); GFR ESTIMATED > 60; GLUCOSE 80 MG/DL (70-105); POTASSIUM 4.2 MMOL/L (3.6-5.0); SODIUM 132 MMOL/L (135-145)
[2017-08-04 08:00] VITALS: BP 124/58
[2017-08-04] MEDS: cefTRIAXone INJECTION 1,000 MG in NS (IVPB) 50 ML IV SCH (08:33)
--- NOTE | 2017-08-04 09:22 | Occupational Ther Daily Note ---
OT Current Status-Daily Note Subjective Pt sitting in chair with son present. Wants to know when she can go home. Pt has no reports of pain. Mental Status/Objective Patient Orientation: Person, Confused Functional [place] Measure 0=Not Assessed/NA 4=Minimal Assistance 1=Total Assistance 5=Supervision or Setup 2=Maximal Assistance 6=Modified [place] 3=Moderate Assistance 7=Complete [place] Attachments: IV ADL-Treatment Pt agrees to sponge bath this morning. Pt bathed bilateral UE, chest, and abdomen with set up and increased time. Cues for task completion. Pt declined encouragement to wash lower body at this time secondary to being cold and states "I just don't think I want to do that right now." (nurse aide was notified and will assist pt at later time.) Pt has wraps on lower legs. Pt donned hospital gown with minimal assistance secondary to IV. Pt sit to stand with supervision for repositioning in chair. Pt brushed teeth while seated. Pt able to complete oral care with set up. Pt requires increased time for ADL tasks. Pt sitting in chair with needs met, chair alarm in place after session. OT Short Term Goals Short Term Goals 1=Demonstrate adherence to instructed precautions during ADL tasks. 2=Patient will verbalize/demonstrate understanding of assistive devices/ modifications for ADL. 3=Patient will improve strength/tolerance for activity to enable patient to perform ADL's. OT Last Waxer Goals Longterm Goals Time Frame: Aug 10, 2017 Eating (FIM): 6 Grooming(FIM): 6 Bathing(FIM): 5 Upper Body Dressing(FIM): 5 Lower Body Dressing(FIM): 5 Toileting(FIM): 6 Toilet/Commode Transfer(FIM): 6 Shower Transfer(FIM): 5 Additional Goals: 2-Verbalize Understanding, 3-ImproveStrength/Bart 1=Demonstrate adherence to instructed precautions during ADL tasks. 2=Patient will verbalize/demonstrate understanding of assistive devices/ modifications for ADL. 3=Patient will improve strength/tolerance for activity to enable patient to perform ADL's. OT Education/Plan Problem List/Assessment Pt would benefit from skilled OT to increase her independence in basic self care to allow her to safely return to her home or other setting and to decrease caregiver burden Discharge Recommendations Plan/Recommendations: Continue POC Treatment Plan/Plan of Care Patient would benefit from OT for education, treatment and training to promote independence in ADL's, mobility, safety and/or upper extremity function for ADL' s. Treatment Duration: Aug 10, 2017 Frequency: 5 times per week Estimated Hrs Per Day: .5 hour per day Agreement: Yes Rehab Potential: Good Time/GCodes Start Time: 08:46 Stop Time: 09:11 Total Time Billed (hr/min): 25 Billed Treatment Time 1 visit, ADLx2(25minutes) PT/OT Therapy GCodes Therapy Functional Limitation: Physical Therapy Test(s)/Tool used to determine: Level of Assistance Scale Functional Limitation-Current Charge Code: MOBCUR Modifier: CK Functional Limitation-Goal Charge Code: MOBGOAL Modifier: NIDIA ROMERO OT Aug 04, 2017 09:22
[2017-08-04] MEDS ORDERED: ALPRAZolam 0.25 MG (XANAX) TAB PO PRN (10:00)
[2017-08-04] MEDS: DIVALPROX SPRINKLE 125 MG (DEPAKOTE) CAP PO SCH ×2 (10:02→21:34)
--- NOTE | 2017-08-04 10:54 | Physical Therapy Daily Note ---
PT Daily Note-Current Subjective Patient states, "I just want to go home and live. I want to take care of my dog and be with my family. That's all I want. I don't want to be here." Pain Numeric Pain Scale: 0-No Pain Location: No Pain Reported Mental Status Patient Orientation: Person, Place, Situation Attachments: IV Transfers Functional [place] Measure 0=Not Assessed/NA 4=Minimal Assistance 1=Total Assistance 5=Supervision or Setup 2=Maximal Assistance 6=Modified [place] 3=Moderate Assistance 7=Complete IndependenceIRFPAI Quality Coding Scale 6 Independent with activity with or without an assistive device 5 Patient requires set up or clean up by helper. Patient completes activity by themselves 4 Supervision or touching assist (CGA). [place] provide cues , steadying assist 3 The helper provides less than half the effort to complete the activity 2 The helper provides more than half the effort to complete the activity 1 Dependent. The helper does all the effort to complete an activity 7 Patient refused to complete or attempt activity 9 The patient did not perform the activity before the current illness or injury 88 Not attempted due to Medical conditions or safety concerns Transfers (B, C, W/C) (FIM): 6 Scootin Rollin Supine to/from Sit: 6 Sit to/from Stand: 6 Gait Training Gait (FIM): 5 Distance (FIM): 3=150 ft Distance: 300' Gait Level of Assist: 5 Gait Persons Needed: 1 Gait Assistive Device: FWW attempted to ambulate without assistive device, however, patient prefers to use the FWW after attempt failed. Safe and functional with FWW Assessment Patient educated on importance of safety with use of FWW. Patient stated she utilizes her furniture at home prior to this admit. This PT recommends a FWW for home use upon dismissal. PT Risk Management Analyst Goals Risk Management Analyst Goals PT Risk Management Analyst Goals Time Frame: Aug 10, 2017 Transfers (B,C,W/C) (FIM): 6 Gait (FIM): 6 Gait distance (FIM): 3=150 ft Distance: 300' Gait Level of Assist: 6 Gait Assistive Device: FWW PT Plan Treatment/Plan Treatment Plan: Continue Plan of Care Treatment Plan: Education, Functional Activity Bart, Functional Strength, Gait , Safety, Therapeutic Exercise Treatment Duration: Aug 10, 2017 Frequency: 6 times per week Estimated Hrs Per Day: .5 hour per day Patient and/or Family Agrees t: Yes Discharge Recommendations Equpiment Recommendations-D/C: Front Wheeled Walker Time/GCodes Time In: 1000 Time Out: 1015 Total Billed Treatment Time: 15 Total Billed Treatment 1 visit FA 15 min PT/OT Therapy GCodes Therapy Functional Limitation: Physical Therapy Test(s)/Tool used to determine: Level of Assistance Scale Functional Limitation-Current Charge Code: MOBCUR Modifier: CK Functional Limitation-Goal Charge Code: MOBGOSEBASTIÁN Modifier: CARLOS CAMEJO PT Aug 04, 2017 10:54
[2017-08-04] MEDS: ALPRAZolam 0.25 MG (XANAX) TAB PO SCH ×2 (11:23→21:34)
--- NOTE | 2017-08-04 11:27 | Progress Note-Hospitalist ---
Subjective HPI/CC On Admission Date Seen by Provider: Aug 04, 2017 Time Seen by Provider: 11:00 CC: Fall HPI: Pt is a 81yo CF with a PMH of SVT/A-fib, RA, and paranoia who presented to the ER after a fall. She is awake and alert but is unable to provide me any history in regards to the fall. She remembers yesterday and reports it was a normal day but does not remember anything from this morning or what happened to make her fall. Most of the HPI comes from her daughter. Her daughter checks on her every morning at 6am and found her this morning in her bedroom on the floor with a large cut on the right side of her forehead with "blood everywhere." She called EMS who brought her here. They are both unsure how long she was down for. She is on a blood thinner per her rotary machine operator. On ROS she does report a cough for the past week or so with dark sputum unimproved by Mucinex. She thinks she may have had fevers but has not checked. Subjective/Events-last exam Mrs. Rocha is a frail 81-year-old white female who introduced herself to me as though she was meeting me for the first time. I have seen her in the office on at least 6 occasions were was clinically evidence to this examiner and confirmed by family that she was having slow progressive loss of short-term memory as well as communication skills with word search errors indicative of Alzheimer's dementia for at least the last year. She reports that she is feeling better this morning and exhibited no evidence for inattention with pleasant demeanor. She wished to go home to be with her dog and did not feel that she no longer needed to be hospitalized. She still has cough productive of brownish sputum although reportedly not nearly as much thus far today as yesterday. She denies chills or fever. She was too confused to lay still for a CT scan yesterday for evaluation of her right pulmonary mass 3.8 x 5 cm in size bordering the right heart border Objective Exam Vital Signs Vital Sign - Last 12Hours 08/03/17 07:25 Temp 98.1 Pulse 65 Resp 18 B/P (MAP) 152/65 Pulse Ox 97 O2 Delivery Room Air Capillary Refill : Less Than 3 Seconds General Appearance: No Apparent Distress, Chronically ill, Thin HEENT: Other (periorbital purpura with sutured incision above the left eyebrow with minimal swelling. Significant erythema is noted.) Respiratory: Chest Non Tender, No Accessory Muscle Use, No Respiratory Distress , Other (warts rales throughout without wheezing. Some mild decreased breath sounds in the right base) Cardiovascular: Regular Rate, Rhythm, No Edema, No Gallop, No JVD, No Murmur Skin: Pallor Results/Procedures Lab Laboratory Tests 08/04/17 06:21 Assessment/Plan Assessment and Plan Assess & Plan/Chief Complaint 1. Pneumonia likely bacterial etiology continue current antibiotics. 2. Right pulmonary mass 3.5 x 5 cm in size well pseudotumors in the differential diagnosis considering age and smoking history favor neoplastic process. 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 3. History of rheumatoid arthritis which has been quiescent on biologic therapy. 4. Mild hyponatremia possibly tumor-related improving with saline. 5. Progressive dementia compatible with Alzheimer's disease with secondary delirium aggravated by number 1 and 4. Diagnosis/Problems Diagnosis/Problems (1) Right middle lobe pneumonia Status: Acute Assessment & Plan: CXR Concerning for PNA vs neoplasm Will get CT to assist in diagnosis Continue abx (Ceftriaxone Day #1), does not meet sepsis criteria- this is not sepsis Will get blood cultures, strep pneumo/legionella antigens MAT protocol Encourage IS Pneumonia vaccine screen Qualifiers: Qualified Codes: J18.1 - Lobar pneumonia, unspecified organism (2) Mass of right lung Status: Acute Assessment & Plan: Newly developed since last CXR Concerning for post obstruction pna now Will get CT as above, consider Pulm or Onc consult pending results (3) A-fib Status: Chronic Assessment & Plan: Unclear if solely a-fib vs history of SVT as well on Xarelto and follows with Dr. King in [place] Continue Sotalol (4) Laceration of face Status: Acute Assessment & Plan: Repaired in ER Wound Care and pressure dressing Qualifiers: Qualified Codes: S01.81XA - Laceration without foreign body of other part of head, initial encounter (5) Fall Status: Acute Assessment & Plan: Per daughter fell today and fell last week, will have PT/OT evaluate Place on Fall precautions Will get orthostatics Qualifiers: Qualified Codes: W19.XXXA - Unspecified fall, initial encounter (6) Hyperkalemia Status: Acute Assessment & Plan: Very mild and specimen hemolyzed Will recheck in AM (7) Rheumatoid arthritis Status: Chronic Assessment & Plan: On remicaid Q3 weeks, stable (8) Chronic hyponatremia Status: Chronic Assessment & Plan: Reviewing labs appears to be chronic, likely from Depakote Will trend and place on 1L fluid restrictoin (9) Normocytic anemia Status: Chronic Assessment & Plan: Near baseline, will trend No indication for transfusion at this time (10) Prophylactic measure Assessment & Plan: On Xarelto 1L Fluid restriction Will start probiotic as well AVELINA JUAREZ MD Aug 04, 2017 11:27
[2017-08-04 12:00] VITALS: BP 135/68
[2017-08-04 15:45] VITALS: BP 155/81
[2017-08-04 19:25] VITALS: BP 142/80
[2017-08-04] MEDS: ASPIRIN E.C. 81 MG (ECOTRIN) TAB PO SCH (21:34)
[2017-08-04] MEDS: guaiFENesin (MUCINEX) 600 MG TAB PO SCH (21:34)
[2017-08-04] MEDS: CELECOXIB 100 MG (CeleBREX) CAP PO SCH (21:34)
[2017-08-04] MEDS: FAMOTIDINE 20 MG (PEPCID) TABLET PO SCH (21:34)
[2017-08-04] MEDS: SOTALOL 80 MG (BETAPACE) TAB PO SCH (21:34)
[2017-08-05] VITALS: BP 121/79
[2017-08-05] MEDS: RT-ALBUTEROL/IPRATROPIUM 3 ML (DUONEB) VIAL INH SCH ×6 (02:38→23:26)
[2017-08-05 04:00] VITALS: BP 117/57
[2017-08-05] MEDS: NS IV 1000 ML 1,000 ML IV SCH (05:48)
[2017-08-05 08:48] VITALS: BP 119/66
--- NOTE | 2017-08-05 08:49 | Physical Therapy Daily Note ---
PT Daily Note-Current Subjective Nursing reports that pt is very confused about time and place. Pt is able to communicate and carry on a conversation, but does get lost mentally during conversations. Pain Numeric Pain Scale: 4 Location Body Site: Face Pain Description: Ache, Dull Appearance Pt is alert, with moderate confusion. Mental Status Patient Orientation: Confused Transfers Functional [place]enson Measure 0=Not Assessed/NA 4=Minimal Assistance 1=Total Assistance 5=Supervision or Setup 2=Maximal Assistance 6=Modified [place] 3=Moderate Assistance 7=Complete IndependenceIRFPAI Quality Coding Scale 6 Independent with activity with or without an assistive device 5 Patient requires set up or clean up by helper. Patient completes activity by themselves 4 Supervision or touching assist (CGA). [place] provide cues , steadying assist 3 The helper provides less than half the effort to complete the activity 2 The helper provides more than half the effort to complete the activity 1 Dependent. The helper does all the effort to complete an activity 7 Patient refused to complete or attempt activity 9 The patient did not perform the activity before the current illness or injury 88 Not attempted due to Medical conditions or safety concerns Transfers (B, C, W/C) (FIM): 6 Scootin Sit to/from Stand: 6 Bed to/from Chair: 6 While pt is physically able to perform transfers, she is moderately impulsive, and fatigues quickly. Weight Bearing Weight Bearing Restriction: Full Weight Bearing Gait Training Distance (FIM): 3=150 ft Distance: 300ft Gait Level of Assist: 6 Gait Persons Needed: 1 Gait Assistive Device: FWW No loss of balance or misstep during gait training. Exercises Seated Therapy Exercises: LE Protocol Seated Reps: 15 Assessment Current Status: Good Progress Pt is performing well physically, but due to her confusion she is at risk for falls. She is physically able to perform all transfers and ambulation without assistance, only supervision is required. PT Temporary Staff Accountant Goals Temporary Staff Accountant Goals PT Temporary Staff Accountant Goals Time Frame: Aug 10, 2017 Transfers (B,C,W/C) (FIM): 6 Gait (FIM): 6 Gait distance (FIM): 3=150 ft Distance: 300' Gait Level of Assist: 6 Gait Assistive Device: FWW PT Plan Problem List Problem List: Activity Tolerance, Functional Strength, Safety, Gait Treatment/Plan Treatment Plan: Continue Plan of Care Treatment Plan: Education, Functional Activity Bart, Functional Strength, Gait , Safety, Therapeutic Exercise Treatment Duration: Aug 10, 2017 Frequency: 6 times per week Estimated Hrs Per Day: .5 hour per day Patient and/or Family Agrees t: Yes Time/GCodes Time In: 829 Time Out: 844 Total Billed Treatment Time: 15 Total Billed Treatment 1, gt 15 PT/OT Therapy GCodes Therapy Functional Limitation: Physical Therapy Test(s)/Tool used to determine: Level of Assistance Scale Functional Limitation-Current Charge Code: MOBCECILIA Modifier: CK Functional Limitation-Goal Charge Code: MOBKINGS Modifier: ALEXANDER CAMPA PT Aug 05, 2017 08:49
[2017-08-05] MEDS: cefTRIAXone INJECTION 1,000 MG in NS (IVPB) 50 ML IV SCH (08:51)
[2017-08-05] MEDS: guaiFENesin (MUCINEX) 600 MG TAB PO SCH ×2 (08:51→22:06)
[2017-08-05] MEDS: CELECOXIB 100 MG (CeleBREX) CAP PO SCH ×2 (08:52→22:05)
[2017-08-05] MEDS: LORATADINE (CLARITIN) 10 MG TAB PO SCH (08:52)
[2017-08-05] MEDS: FAMOTIDINE 20 MG (PEPCID) TABLET PO SCH ×2 (08:52→22:06)
[2017-08-05] MEDS: ALPRAZolam 0.25 MG (XANAX) TAB PO SCH ×2 (08:52→22:06)
[2017-08-05] MEDS: RIVAROXABAN 20 MG TABLET (XARELTO) PO SCH (08:52)
[2017-08-05] MEDS: ASPIRIN E.C. 81 MG (ECOTRIN) TAB PO SCH ×2 (08:52→22:05)
[2017-08-05] MEDS: SOTALOL 80 MG (BETAPACE) TAB PO SCH ×2 (08:52→22:05)
[2017-08-05] MEDS: DIVALPROX SPRINKLE 125 MG (DEPAKOTE) CAP PO SCH ×2 (08:53→22:06)
--- NOTE | 2017-08-05 09:17 | Progress Note-Hospitalist ---
Subjective HPI/CC On Admission Date Seen by Provider: Aug 05, 2017 Time Seen by Provider: 09:00 CC: Fall HPI: Pt is a 81yo CF with a PMH of SVT/A-fib, RA, and paranoia who presented to the ER after a fall. She is awake and alert but is unable to provide me any history in regards to the fall. She remembers yesterday and reports it was a normal day but does not remember anything from this morning or what happened to make her fall. Most of the HPI comes from her daughter. Her daughter checks on her every morning at 6am and found her this morning in her bedroom on the floor with a large cut on the right side of her forehead with "blood everywhere." She called EMS who brought her here. They are both unsure how long she was down for. She is on a blood thinner per her antique finisher. On ROS she does report a cough for the past week or so with dark sputum unimproved by Mucinex. She thinks she may have had fevers but has not checked. Subjective/Events-last exam Patient sitting at bedside and very coopertaive with exam. She seems very confused though. She states that she just got [place] the cruise ship and really liked the food. She denies any complaints or any other concerns. She became tearful during out discussion talking about her dog. Objective Exam Vital Signs Vital Sign - Last 12Hours 08/03/17 07:25 Temp 98.1 Pulse 65 Resp 18 B/P (MAP) 152/65 Pulse Ox 97 O2 Delivery Room Air Capillary Refill : Less Than 3 Seconds General Appearance: No Apparent Distress, WD/WN Respiratory: Lungs Clear, Normal Breath Sounds Cardiovascular: Regular Rate, Rhythm, No Edema, No Murmur Gastrointestinal: Normal Bowel Sounds, Non Tender, Soft Neurologic/Psychiatric: Alert, Other (oriented only to self) Assessment/Plan Assessment and Plan Assess & Plan/Chief Complaint See Problems Diagnosis/Problems Diagnosis/Problems (1) Right middle lobe pneumonia Status: Acute Assessment & Plan: CXR Concerning for PNA vs neoplasm Per nursing have attempted to get CT of Chest twice but she is unable to cooperate with the exam Continue abx (Ceftriaxone Day #3), does not meet sepsis criteria- this is not sepsis Blood cultures negative MAT protocol Encourage IS Pneumonia vaccine screen Qualifiers: Qualified Codes: J18.1 - Lobar pneumonia, unspecified organism (2) Mass of right lung Status: Acute Assessment & Plan: Newly developed since last CXR Concerning for post obstruction pna now Have been unable to get CT of chest while inpatient (3) A-fib Status: Chronic Assessment & Plan: Unclear if solely a-fib vs history of SVT as well on Xarelto and follows with Dr. King in [place] Continue Sotalol (4) Laceration of face Status: Acute Assessment & Plan: Repaired in ER Wound Care Qualifiers: Qualified Codes: S01.81XA - Laceration without foreign body of other part of head, initial encounter (5) Fall Status: Acute Assessment & Plan: Per daughter fell today and fell last week, will have PT/OT evaluate Place on Fall precautions Qualifiers: Qualified Codes: W19.XXXA - Unspecified fall, initial encounter (6) Hyperkalemia Status: Acute Assessment & Plan: Very mild and specimen hemolyzed Will recheck in AM (7) Rheumatoid arthritis Status: Chronic Assessment & Plan: On remicaid Q3 weeks, stable (8) Chronic hyponatremia Status: Chronic Assessment & Plan: Reviewing labs appears to be chronic, likely from Depakote Will trend and place on 1L fluid restrictoin (9) Normocytic anemia Status: Chronic Assessment & Plan: Near baseline, will trend No indication for transfusion at this time (10) Prophylactic measure Assessment & Plan: On Xarelto 1L Fluid restriction Probiotic (11) Discharge planning issues Assessment & Plan: Discussed with PT and has been doing well with ambulation with wlaker which is new and would likely benefit form SNU placement/rehab following admission With baseline dementia and new debility, unlikely to be safe DC-ed home without 24/7 care Will discuss plan with daughter when she arrives IRON HUNTER MD Aug 05, 2017 09:17
[2017-08-05 15:28] VITALS: BP 134/62
[2017-08-05] MEDS ORDERED: LORazepam 1 MG (ATIVAN) TAB ONE (23:55)
[2017-08-06] VITALS: BP 151/64
[2017-08-06] MEDS ORDERED: LORazepam 1 MG (ATIVAN) TAB PO ONE
[2017-08-06] MEDS: RT-ALBUTEROL/IPRATROPIUM 3 ML (DUONEB) VIAL INH SCH ×5 (02:00→19:51)
[2017-08-06 08:00] VITALS: BP 146/71
[2017-08-06] MEDS: guaiFENesin (MUCINEX) 600 MG TAB PO SCH ×2 (10:28→20:35)
[2017-08-06] MEDS: CELECOXIB 100 MG (CeleBREX) CAP PO SCH ×2 (10:28→20:35)
[2017-08-06] MEDS: DIVALPROX SPRINKLE 125 MG (DEPAKOTE) CAP PO SCH ×2 (10:29→20:36)
[2017-08-06] MEDS: ALPRAZolam 0.25 MG (XANAX) TAB PO SCH ×2 (10:29→20:35)
[2017-08-06] MEDS: FAMOTIDINE 20 MG (PEPCID) TABLET PO SCH ×2 (10:29→20:35)
[2017-08-06] MEDS: LORATADINE (CLARITIN) 10 MG TAB PO SCH (10:29)
[2017-08-06] MEDS: RIVAROXABAN 20 MG TABLET (XARELTO) PO SCH (10:29)
[2017-08-06] MEDS: cefTRIAXone INJECTION 1,000 MG in NS (IVPB) 50 ML IV SCH (10:29)
[2017-08-06] MEDS: SOTALOL 80 MG (BETAPACE) TAB PO SCH ×2 (10:30→20:36)
[2017-08-06] MEDS: ASPIRIN E.C. 81 MG (ECOTRIN) TAB PO SCH ×2 (10:31→20:40)
--- NOTE | 2017-08-06 10:42 | Progress Note-Hospitalist ---
Subjective HPI/CC On Admission Date Seen by Provider: Aug 06, 2017 (10) Time Seen by Provider: 10:30 CC: Fall HPI: Pt is a 81yo CF with a PMH of SVT/A-fib, RA, and paranoia who presented to the ER after a fall. She is awake and alert but is unable to provide me any history in regards to the fall. She remembers yesterday and reports it was a normal day but does not remember anything from this morning or what happened to make her fall. Most of the HPI comes from her daughter. Her daughter checks on her every morning at 6am and found her this morning in her bedroom on the floor with a large cut on the right side of her forehead with "blood everywhere." She called EMS who brought her here. They are both unsure how long she was down for. She is on a blood thinner per her hay stacker. On ROS she does report a cough for the past week or so with dark sputum unimproved by Mucinex. She thinks she may have had fevers but has not checked. Subjective/Events-last exam Pt reports feeling okay today. she is sitting up in her chair holding her dog. Daughter is at bedside who has had many questions about discharge planning and is requesting case management information about 19/06 caretakers and insurance coverage for that. Recommended SNU placement following this hospitalization. Objective Exam Vital Signs Vital Sign - Last 12Hours 08/03/17 07:25 Temp 98.1 Pulse 65 Resp 18 B/P (MAP) 152/65 Pulse Ox 97 O2 Delivery Room Air Capillary Refill : Less Than 3 Seconds General Appearance: No Apparent Distress, WD/WN Respiratory: Chest Non Tender, Lungs Clear, No Respiratory Distress Cardiovascular: Regular Rate, Rhythm, No Murmur Gastrointestinal: Normal Bowel Sounds, Non Tender, Soft Neurologic/Psychiatric: Alert, Other (oriented to person only) Assessment/Plan Assessment and Plan Assess & Plan/Chief Complaint See Problems Diagnosis/Problems Diagnosis/Problems (1) Right middle lobe pneumonia Status: Acute Assessment & Plan: CXR Concerning for PNA vs neoplasm Per nursing have attempted to get CT of Chest twice but she is unable to cooperate with the exam Continue abx (Ceftriaxone Day #4), does not meet sepsis criteria- this is not sepsis Blood cultures negative MAT protocol Encourage IS Pneumonia vaccine screen Qualifiers: Qualified Codes: J18.1 - Lobar pneumonia, unspecified organism (2) Mass of right lung Status: Acute Assessment & Plan: Newly developed since last CXR Concerning for post obstruction pna now Have been unable to get CT of chest while inpatient (3) A-fib Status: Chronic Assessment & Plan: Unclear if solely a-fib vs history of SVT as well on Xarelto and follows with Dr. King in [place] Continue Sotalol (4) Laceration of face Status: Acute Assessment & Plan: Repaired in ER Wound Care Qualifiers: Qualified Codes: S01.81XA - Laceration without foreign body of other part of head, initial encounter (5) Fall Status: Acute Assessment & Plan: Per daughter fell today and fell last week, PT/OT consulted, discussed with PT who thinks she would benefit from rehab as outpatient Place on Fall precautions Qualifiers: Qualified Codes: W19.XXXA - Unspecified fall, initial encounter (6) Rheumatoid arthritis Status: Chronic Assessment & Plan: On remicaid Q3 weeks, stable (7) Hyperkalemia Status: Resolved (8) Chronic hyponatremia Status: Chronic Assessment & Plan: Reviewing labs appears to be chronic, likely from Depakote Will trend and place on 1L fluid restrictoin (9) Normocytic anemia Status: Chronic Assessment & Plan: Near baseline, will trend No indication for transfusion at this time (10) Prophylactic measure Assessment & Plan: On Xarelto 1L Fluid restriction Probiotic (11) Discharge planning issues Assessment & Plan: Discussed with PT and has been doing well with ambulation with walker which is new and would likely benefit form SNU placement/rehab following admission With baseline dementia and new debility, unlikely to be safe DC-ed home without 24/7 care Discussed with daughter who would like to discuss short term placement for rehab with SNU Consulted placed IRON HUNTER MD Aug 06, 2017 10:42
[2017-08-06 15:40] VITALS: BP 118/75
[2017-08-06 19:57] VITALS: BP 146/83
[2017-08-07 00:23] VITALS: BP 112/57
[2017-08-07] MEDS: RT-ALBUTEROL/IPRATROPIUM 3 ML (DUONEB) VIAL INH SCH (07:16)
[2017-08-07 08:00] VITALS: BP_SYST 129; BP_SYST 180; BP_DIAS 100; BP_DIAS 58
--- NOTE | 2017-08-07 08:50 | Progress Note-Hospitalist ---
Subjective HPI/CC On Admission Date Seen by Provider: Aug 08, 2017 Time Seen by Provider: 08:00 CC: Fall HPI: Pt is a 81yo CF with a PMH of SVT/A-fib, RA, and paranoia who presented to the ER after a fall. She is awake and alert but is unable to provide me any history in regards to the fall. She remembers yesterday and reports it was a normal day but does not remember anything from this morning or what happened to make her fall. Most of the HPI comes from her daughter. Her daughter checks on her every morning at 6am and found her this morning in her bedroom on the floor with a large cut on the right side of her forehead with "blood everywhere." She called EMS who brought her here. They are both unsure how long she was down for. She is on a blood thinner per her laboratory apparatus glass blower. On ROS she does report a cough for the past week or so with dark sputum unimproved by Mucinex. She thinks she may have had fevers but has not checked. Subjective/Events-last exam Mrs. Rocha is feeling better but still quite weak requiring standby assistance with getting around. She has been continent of urine and stool. There was some mild agitation yesterday afternoon but did not require medication per staff. She voices no complaints today and ask about going home. Family have been looking into assisted living options and after discussion she is agreeable to this provided she has access to her dog with at least visitation privileges Objective Exam Vital Signs Vital Sign - Last 12Hours 08/03/17 07:25 Temp 98.1 Pulse 65 Resp 18 B/P (MAP) 152/65 Pulse Ox 97 O2 Delivery Room Air Capillary Refill : Less Than 3 SecondsLess Than 3 Seconds General Appearance: No Apparent Distress, Chronically ill HEENT: Other (for had scar healing well no erythema or tenderness. Left periorbital purpura stable no evidence for swelling nontender to palpation.) Respiratory: Chest Non Tender, No Respiratory Distress, Other (decreased breath sounds in the bases bilaterally right greater than left with dry answer [place] sounding rales above this level. Mild cough nonproductive with deep inspiration.) Cardiovascular: Regular Rate, Rhythm, No Edema, No Gallop, No JVD, No Murmur Extremity: Normal Range of Motion, Non Tender, Other Assessment/Plan Assessment and Plan Assess & Plan/Chief Complaint 1. Pneumonia likely bacterial etiology continue current antibiotics. 2. CAT scan of the chest revealed atelectasis versus infiltrate involving the right middle lobe without evidence for pulmonary mass. Currently postobstructive process is in the differential. Multiple small soft tissue densities were noted bilaterally it could be infectious although rheumatoid nodules are clearly in the differential as well. After discussion with family we will not work this up further due to frail health and advanced age.. 3. History of rheumatoid arthritis which has been quiescent on biologic therapy. 4. Mild hyponatremia possibly tumor-related improving with saline. 5. Progressive dementia compatible with Alzheimer's disease with secondary delirium aggravated by number 1 and 4. 6. Looking into SNU for several more days of antibiotics and PT with family looking into transfer to assisted living vs NH placement. Pt aware and consents at this time. Diagnosis/Problems Diagnosis/Problems (1) Right middle lobe pneumonia Status: Acute Assessment & Plan: CXR Concerning for PNA vs neoplasm Per nursing have attempted to get CT of Chest twice but she is unable to cooperate with the exam Continue abx (Ceftriaxone Day #4), does not meet sepsis criteria- this is not sepsis Blood cultures negative MAT protocol Encourage IS Pneumonia vaccine screen Qualifiers: Qualified Codes: J18.1 - Lobar pneumonia, unspecified organism (2) Mass of right lung Status: Acute Assessment & Plan: Newly developed since last CXR Concerning for post obstruction pna now Have been unable to get CT of chest while inpatient (3) A-fib Status: Chronic Assessment & Plan: Unclear if solely a-fib vs history of SVT as well on Xarelto and follows with Dr. King in [place] Continue Sotalol (4) Laceration of face Status: Acute Assessment & Plan: Repaired in ER Wound Care Qualifiers: Qualified Codes: S01.81XA - Laceration without foreign body of other part of head, initial encounter (5) Fall Status: Acute Assessment & Plan: Per daughter fell today and fell last week, PT/OT consulted, discussed with PT who thinks she would benefit from rehab as outpatient Place on Fall precautions Qualifiers: Qualified Codes: W19.XXXA - Unspecified fall, initial encounter (6) Rheumatoid arthritis Status: Chronic Assessment & Plan: On remicaid Q3 weeks, stable (7) Hyperkalemia Status: Resolved (8) Chronic hyponatremia Status: Chronic Assessment & Plan: Reviewing labs appears to be chronic, likely from Depakote Will trend and place on 1L fluid restrictoin (9) Normocytic anemia Status: Chronic Assessment & Plan: Near baseline, will trend No indication for transfusion at this time (10) Prophylactic measure Assessment & Plan: On Xarelto 1L Fluid restriction Probiotic (11) Discharge planning issues Assessment & Plan: Discussed with PT and has been doing well with ambulation with walker which is new and would likely benefit form SNU placement/rehab following admission With baseline dementia and new debility, unlikely to be safe DC-ed home without 24/7 care Discussed with daughter who would like to discuss short term placement for rehab with SNU Consulted placed Copy Copies To 2: AVELINA JUAREZ MD, MARK D MD Aug 07, 2017 08:49
[2017-08-07] MEDS: guaiFENesin (MUCINEX) 600 MG TAB PO SCH (09:45)
[2017-08-07] MEDS: SOTALOL 80 MG (BETAPACE) TAB PO SCH (09:45)
[2017-08-07] MEDS: RIVAROXABAN 20 MG TABLET (XARELTO) PO SCH (09:46)
[2017-08-07] MEDS: DIVALPROX SPRINKLE 125 MG (DEPAKOTE) CAP PO SCH (09:46)
[2017-08-07] MEDS: ALPRAZolam 0.25 MG (XANAX) TAB PO SCH (09:46)
[2017-08-07] MEDS: FAMOTIDINE 20 MG (PEPCID) TABLET PO SCH (09:47)
[2017-08-07] MEDS: LORATADINE (CLARITIN) 10 MG TAB PO SCH (09:47)
[2017-08-07] MEDS: cefTRIAXone INJECTION 1,000 MG in NS (IVPB) 50 ML IV SCH (09:47)
[2017-08-07] MEDS: CELECOXIB 100 MG (CeleBREX) CAP PO SCH (09:47)
--- NOTE | 2017-08-07 09:52 | Physical Therapy Daily Note ---
PT Daily Note-Current Subjective Patient is alert, however, very confused. Agrees to PT. Pain Numeric Pain Scale: 5-Moderate Pain Location: Right, Left Location Body Site: Thigh Pain Description: Ache Mental Status Patient Orientation: Confused Transfers Functional [place] Measure 0=Not Assessed/NA 4=Minimal Assistance 1=Total Assistance 5=Supervision or Setup 2=Maximal Assistance 6=Modified [place] 3=Moderate Assistance 7=Complete IndependenceIRFPAI Quality Coding Scale 6 Independent with activity with or without an assistive device 5 Patient requires set up or clean up by helper. Patient completes activity by themselves 4 Supervision or touching assist (CGA). [place] provide cues , steadying assist 3 The helper provides less than half the effort to complete the activity 2 The helper provides more than half the effort to complete the activity 1 Dependent. The helper does all the effort to complete an activity 7 Patient refused to complete or attempt activity 9 The patient did not perform the activity before the current illness or injury 88 Not attempted due to Medical conditions or safety concerns Transfers (B, C, W/C) (FIM): 5 Scootin Sit to/from Stand: 5 Gait Training Gait (FIM): 5 Distance (FIM): 3=150 ft Distance: 250' Gait Level of Assist: 5 Gait Persons Needed: 1 Gait Assistive Device: FWW functional with FWW, however, will require SBA for safety due to confusion/ dementia Exercises Seated Therapy Exercises: Ankle pumps, Long arc quads Seated Reps: 15 (3 sets to increase strength to improve functional mobility and increase circulation) Assessment Patient does have increase SOA with activity requiring recovery periods with quick recovery. From a PT standpoint, patient will require 24/7 care due to confusion/dementia. PT Fdc Goals Dock Loader Goals PT Dock Loader Goals Time Frame: Aug 10, 2017 Transfers (B,C,W/C) (FIM): 6 Gait (FIM): 6 Gait distance (FIM): 3=150 ft Distance: 300' Gait Level of Assist: 6 Gait Assistive Device: FWW PT Plan Treatment/Plan Treatment Plan: Continue Plan of Care Treatment Plan: Education, Functional Activity Bart, Functional Strength, Gait , Safety, Therapeutic Exercise Treatment Duration: Aug 10, 2017 Frequency: 6 times per week Estimated Hrs Per Day: .5 hour per day Patient and/or Family Agrees t: Yes Time/GCodes Time In: 900 Time Out: 925 Total Billed Treatment Time: 25 Total Billed Treatment 1 visit EX 15 min GT10 min PT/OT Therapy GCodes Therapy Functional Limitation: Physical Therapy Test(s)/Tool used to determine: Level of Assistance Scale Functional Limitation-Current Charge Code: MOBCUR Modifier: CK Functional Limitation-Goal Charge Code: MOBGOAL Modifier: CARLOS CAMEJO PT Aug 07, 2017 09:52
--- NOTE | 2017-08-07 10:10 | Occupational Ther Daily Note ---
OT Current Status-Daily Note Subjective Pt alert, sitting in recliner. Agrees to therapy. No c/o pain. Mental Status/Objective Patient Orientation: Person, Place Functional [place] Measure 0=Not Assessed/NA 4=Minimal Assistance 1=Total Assistance 5=Supervision or Setup 2=Maximal Assistance 6=Modified [place] 3=Moderate Assistance 7=Complete [place] Attachments: IV ADL-Treatment Pt ambulates to bathroom with CGA using FWW. Brushes teeth and dentures while standing at sink with CGA. Pt ambulates to toilet with verbal cues to remember walker. Pt manipulates clothing and completes hygiene with CGA. Pt doffs underwear by self due to incontinence. Nurse dons clean underwear and applies cream to bottom. Pt ambulates back to chair with CGA using FWW with verbal cues for walker safety. Pt reports feeling fatigued after ADL's, needs to catch breath while seated in recliner. After therapy, pt sitting in recliner with phone and call light in reach and safety measures in place. All needs met. Grooming (FIM): 4 Lower Body Dressing (FIM): 4 OT Short Term Goals Short Term Goals 1=Demonstrate adherence to instructed precautions during ADL tasks. 2=Patient will verbalize/demonstrate understanding of assistive devices/ modifications for ADL. 3=Patient will improve strength/tolerance for activity to enable patient to perform ADL's. OT Steam Plant Control Room Operator Goals Steam Plant Control Room Operator Goals Time Frame: Aug 10, 2017 Eating (FIM): 6 Grooming(FIM): 6 Bathing(FIM): 5 Upper Body Dressing(FIM): 5 Lower Body Dressing(FIM): 5 Toileting(FIM): 6 Toilet/Commode Transfer(FIM): 6 Shower Transfer(FIM): 5 Additional Goals: 2-Verbalize Understanding, 3-ImproveStrength/Bart 1=Demonstrate adherence to instructed precautions during ADL tasks. 2=Patient will verbalize/demonstrate understanding of assistive devices/ modifications for ADL. 3=Patient will improve strength/tolerance for activity to enable patient to perform ADL's. OT Education/Plan Problem List/Assessment Pt would benefit from skilled OT to increase her independence in basic self care to allow her to safely return to her home or other setting and to decrease caregiver burden Discharge Recommendations Plan/Recommendations: Continue POC Treatment Plan/Plan of Care Patient would benefit from OT for education, treatment and training to promote independence in ADL's, mobility, safety and/or upper extremity function for ADL' s. Treatment Duration: Aug 10, 2017 Frequency: 5 times per week Estimated Hrs Per Day: .5 hour per day Agreement: Yes Rehab Potential: Good Time/GCodes Start Time: 09:35 Stop Time: 10:03 Total Time Billed (hr/min): 28 Billed Treatment Time 1 visit, ADL 2 (28 minutes) PT/OT Therapy GCodes Therapy Functional Limitation: Physical Therapy Test(s)/Tool used to determine: Level of Assistance Scale Functional Limitation-Current Charge Code: MOBCUR Modifier: CK Functional Limitation-Goal Charge Code: MOBGOAL Modifier: FRANKLIN STATON Aug 07, 2017 10:10
[2017-08-07] MEDS ORDERED: NS 100 ML (IVPB) BAG IV ONE (10:45)
[2017-08-07] MEDS ORDERED: IOHEXOL 350 MG/ML 100 ML (OMNIPAQUE 350) VIAL IV ONE (10:45)
[2017-08-07] MEDS ORDERED: CATHETER FLUSH 10 ML SYR IV PRN (10:45)
[2017-08-07] MEDS ORDERED: LORazepam INJ 2 MG/ML (ATIVAN) VIAL IVP NR (11:15)
--- NOTE | 2017-08-07 12:21 | Diagnostic Imaging Report ---
PROCEDURE: CT chest with contrast only. TECHNIQUE: Multiple contiguous axial images were obtained through the chest after administration of intravenous contrast. INDICATION: For evaluation of right basilar opacity seen on chest radiograph. COMPARISON: Chest radiograph of 08/03/2017. FINDINGS: Lungs and airway: No endoluminal lesion in the trachea or central bronchi. Multifocal peribronchial ground-glass and centrilobular nodules are seen throughout both lungs. 5 mm nodule in the right lung apex is noncalcified. Subtotal consolidation with associated volume loss within the inferior aspect of the right middle lobe is present and accounts for the right lung base opacity seen on recent CT. Pleura: Crktw-hv-kjtbxcuh bilateral pleural effusions. No pneumothorax. Heart and mediastinum: Visualized thyroid is normal. No supraclavicular or axillary lymphadenopathy. No intrathoracic lymphadenopathy. Heart is enlarged without pericardial effusion. Coronary artery calcifications are seen. Normal caliber thoracic aorta. Upper abdomen: No acute abnormality in the upper abdomen. Atherosclerotic vascular calcifications are noted. Potential nodular configuration of the liver, although this may be secondary to motion artifact. Musculoskeletal: No concerning focal osseous lesion. IMPRESSION: 1. Atelectasis and/or airspace consolidation in the middle lobe accounts for the opacity seen on recent chest radiograph. Underlying pneumonia could be present in the appropriate setting. No evidence of intrathoracic neoplasm. 2. Moderate right and wpkey-xy-inpwkfsf left pleural effusion. 3. Multifocal ill-defined airspace opacities and nodules are likely infectious in etiology. 4. Question nodular configuration of the liver, although this may be secondary to motion artifact. Correlation for cirrhosis is advised. 5. Cardiomegaly without pericardial effusion. Dictated by: Dictated on workstation # [id number]
[2017-08-07 13:29] VITALS: BP 123/60
--- NOTE | 2017-08-15 09:59 | Discharge Summary-Hospitalist ---
Diagnosis/Chief Complaint Date of Admission Aug 04, 2017 at 14:10 Date of Discharge Aug 07, 2017 at 14:11 Discharge Date: Aug 07, 2017 Admission Diagnosis CAP Discharge Diagnosis 1. Pneumonia likely bacterial etiology continue current antibiotics. 2. CAT scan of the chest revealed atelectasis versus infiltrate involving the right middle lobe without evidence for pulmonary mass. Currently postobstructive process is in the differential. Multiple small soft tissue densities were noted bilaterally it could be infectious although rheumatoid nodules are clearly in the differential as well. After discussion with family we will not work this up further due to frail health and advanced age.. 3. History of rheumatoid arthritis which has been quiescent on biologic therapy. 4. Mild hyponatremia possibly tumor-related improving with saline. 5. Progressive dementia compatible with Alzheimer's disease with secondary delirium aggravated by number 1 and 4. 6. Looking into SNU for several more days of antibiotics and PT with family looking into transfer to assisted living vs NH placement. Pt aware and consents at this time. (1) Right middle lobe pneumonia Status: Acute Assessment & Plan: CXR Concerning for PNA vs neoplasm Per nursing have attempted to get CT of Chest twice but she is unable to cooperate with the exam Continue abx (Ceftriaxone Day #4), does not meet sepsis criteria- this is not sepsis Blood cultures negative MAT protocol Encourage IS Pneumonia vaccine screen (2) Mass of right lung Status: Acute Assessment & Plan: Newly developed since last CXR Concerning for post obstruction pna now Have been unable to get CT of chest while inpatient (3) A-fib Status: Chronic Assessment & Plan: Unclear if solely a-fib vs history of SVT as well on Xarelto and follows with Dr. King in [place] Continue Sotalol (4) Laceration of face Status: Acute Assessment & Plan: Repaired in ER Wound Care (5) Fall Status: Acute Assessment & Plan: Per daughter fell today and fell last week, PT/OT consulted, discussed with PT who thinks she would benefit from rehab as outpatient Place on Fall precautions (6) Rheumatoid arthritis Status: Chronic Assessment & Plan: On remicaid Q3 weeks, stable (7) Hyperkalemia Status: Resolved (8) Chronic hyponatremia Status: Chronic Assessment & Plan: Reviewing labs appears to be chronic, likely from Depakote Will trend and place on 1L fluid restrictoin (9) Normocytic anemia Status: Chronic Assessment & Plan: Near baseline, will trend No indication for transfusion at this time (10) Prophylactic measure Assessment & Plan: On Xarelto 1L Fluid restriction Probiotic (11) Discharge planning issues Assessment & Plan: Discussed with PT and has been doing well with ambulation with walker which is new and would likely benefit form SNU placement/rehab following admission With baseline dementia and new debility, unlikely to be safe DC-ed home without 24/7 care Discussed with daughter who would like to discuss short term placement for rehab with SNU Consulted placed Discharge Summary Discharge Physical Examination Allergies: Coded Allergies: Penicillins (Verified Adverse Reaction, Intermediate, swelling, 06/30/17) aspartame (Verified Adverse Reaction, Intermediate, elevated heart rate/ feeling ill, 06/30/17) Hospital Course Mrs. Rocha is a frail 81-year-old white female with moderately advanced Alzheimer's dementia and COPD who was admitted with increased shortness of breath and hypoxia. Chest x-ray revealed question of pulmonary mass abutting the right heart border but CT scanning is more compatible with right middle lobe atelectasis with infiltrate. Antibiotics were initiated with oxygen and IV fluids. There is slow improvement not unexpected considering her poor baseline performance status. She was transferred to swing bed status to continue IV antibiotics and physical therapy with the hopes of progressing to the point of assisted living capability. Labs (last 24 hrs) Microbiology 08/03/17 Blood Culture - Final, Complete No growth Discharge Home Medications: Active Scripts Active Acetaminophen ER (Acetaminophen) 650 Mg Tablet.er 650 Mg PO Q6HR PRN Reported Xanax (Alprazolam) 0.25 Mg Tablet 0.25 Mg PO DAILY PRN Xanax (Alprazolam) 0.25 Mg Tablet 0.25 Mg PO BID PRN Xarelto (Rivaroxaban) 20 Mg Tablet 20 Mg PO DAILY Depakote Sprinkle (Divalproex Sodium) 125 Mg Cap 125 Mg PO BID Multivitamins (Multivitamin) 1 Each Tablet 1 Tab PO DAILY Zantac (Ranitidine HCl) 150 Mg Tablet 150 Mg PO BID Zyrtec (Cetirizine HCl) 10 Mg Capsule 10 Mg PO DAILY Sotalol (Sotalol HCl) 120 Mg Tablet 120 Mg PO BID Instructions to patient/family Please see electronic discharge instructions given to patient. Clinical Quality Measures DVT/VTE Risk/Contraindication: Risk Factor Score Per Nursin RFS Level Per Nursing on Admit: 4+=Very High Problem Qualifiers (1) Right middle lobe pneumonia: Pneumonia type: due to unspecified organism Qualified Codes: J18.1 - Lobar pneumonia, unspecified organism (2) Laceration of face: Encounter type: initial encounter Qualified Codes: S01.81XA - Laceration without foreign body of other part of head, initial encounter (3) Fall: Encounter type: initial encounter Qualified Codes: W19.XXXA - Unspecified fall, initial encounter AVELINA JUAREZ MD Aug 15, 2017 09:59
== END 2017-08-07 14:11 | disposition swing bed (61) | DRG 987 ==
LOC: EDUNIT# 07:20 → ER 07:22 → UNDOADMIN 10:15 → 4TH 10:15 → OBSVTOIN 08-04 14:10 → UNDODISIN 08-07 14:11
PROVIDERS: ADMIT Family Medicine; ATTEND Family Medicine
PROC: 0JQ10ZZ Repair Face Subcutaneous Tissue and Fascia, Open Approach (ICD-10-PCS; principal; 2017-08-03)
DX: J44.0 Chronic obstructive pulmonary disease with (acute) lower respiratory infection (principal); J15.9 Unspecified bacterial pneumonia; E87.1 Hypo-osmolality and hyponatremia; S01.81XA Laceration without foreign body of other part of head, initial encounter; R91.8 Other nonspecific abnormal finding of lung field; M05.10 Rheumatoid lung disease with rheumatoid arthritis of unspecified site; G30.9 Alzheimer's disease, unspecified; F02.80 Dementia in other diseases classified elsewhere, unspecified severity, without behavioral disturbance, psychotic disturbance, mood disturbance, and anxiety; I48.2 Chronic atrial fibrillation; E87.5 Hyperkalemia; D64.9 Anemia, unspecified; M25.522 Pain in left elbow; M79.672 Pain in left foot; F22 Delusional disorders; M81.0 Age-related osteoporosis without current pathological fracture; J30.2 Other seasonal allergic rhinitis; W19.XXXA Unspecified fall, initial encounter; Y92.003 Bedroom of unspecified non-institutional (private) residence as the place of occurrence of the external cause; Z79.01 Long term (current) use of anticoagulants; Z87.891 Personal history of nicotine dependence; Z23 Encounter for immunization
CPT/HCPCS: 12011; 36415; 51702; 70450; 70486; 71010; 71260; 72125; 73080; 80048; 80053; 80306; 80320; 81000; 82140; 83735; 84484; 85007; 85025; 85027; 86850; 86900; 86901; 87040; 90715; 94640; 94760; 96365; G0378

== ENCOUNTER 2017-08-07 11:48 | Inpatient (IN) | payer MEDICARE ==
[~2017-08-07] VITALS: Ht 162.6 cm; Wt 59.5 kg
[~2017-08-07 11:48] MED LIST changes: +ALPR0.25 PO
[2017-08-07] MEDS ORDERED: RT-ALBUTEROL/IPRATROPIUM 3 ML (DUONEB) VIAL INH PRN ×2 (14:20→16:28)
[2017-08-07] MEDS ORDERED: CATHETER FLUSH 10 ML SYR IV PRN ×2 (14:20→16:28)
[2017-08-07] MEDS ORDERED: ACETAMINOPHEN 500 MG TAB (TYLENOL) PO PRN ×2 (14:20→16:28)
[2017-08-07] MEDS ORDERED: ONDANSETRON 4 MG/2 ML (SDV) Z0FRAN IV PRN ×2 (14:20→16:28)
[2017-08-07] MEDS: RT-ALBUTEROL/IPRATROPIUM 3 ML (DUONEB) VIAL INH SCH ×2 (14:55→19:28)
--- NOTE | 2017-08-07 15:11 | Physical Therapy Evaluation ---
PT Evaluation-General Medical Diagnosis Admission Date Aug 07, 2017 at 14:12 Medical Diagnosis: pneumonia/hyponatremia Onset Date: Aug 03, 2017 Therapy Diagnosis Therapy Diagnosis: debility Height/Weight Height (Feet): 5 Height (Inches): 4.00 Weight (Pounds): 131 Weight (Ounces): 4.0 Precautions Precautions/Isolations: Fall Prevention, Standard Precautions Referral Physician: Kayla Reason for Referral: Evaluation/Treatment Medical History Pertinent Medical History: Atrial Fib, Dementia, ID, Rheumatoid Arthritis Additional Medical History SWB status Current History debility/confusion/bilateral LE edema/wounds Reviewed History: Yes Social History Home: Single Level Current Living Status: Alone Entry Into Home: Stairs With Railing PT Steps Into Home: 5 PT Steps Inside Home: 5 daughter does laundry secondary to laundry room is in the basement Prior/Core FIM Prior Level of Function Functional [place] Measure 0=Not Assessed/NA 4=Minimal Assistance 1=Total Assistance 5=Supervision or Setup 2=Maximal Assistance 6=Modified [place] 3=Moderate Assistance 7=Complete [place] Bed Mobility: 6 Transfers (B,C,W/C) (FIM): 6 Gait: 7 does not use FWW or care PLOF, however, does "furniture"walk per family report PT Evaluation-Current Subjective Patient is lethargic. Agrees to PT. Pain Numeric Pain Scale: 0-No Pain Location: No Pain Reported Objective Patient Orientation: Confused Problem Solving: Fair ROM/Strength ROM Lower Extremities bilateral LE WNL; noted edema (chronic) Strenght Lower Extremities bilateral LE 3+/5 grossly Integumentary/Posture Integumentary refer to nursing notes Bowel Incontinence: No Bladder Incontinence: No Posture kyphotic Neuromuscular (Tone, Coordination, Reflexes) grossly intact Sensory Vision: Wears Glasses Hearing: Functional Sensation Right Lower Extremit: Intact Sensation Left Lower Extremity: Intact Transfers Functional [place] Measure 0=Not Assessed/NA 4=Minimal Assistance 1=Total Assistance 5=Supervision or Setup 2=Maximal Assistance 6=Modified [place] 3=Moderate Assistance 7=Complete [place] Transfers (B, C, W/C) (FIM): 3 Scootin Rollin Supine to/from Sit: 3 Sit to/from Stand: 3 Sit to Lying (QC): 2 Lying to Sitting/Side of Bed(Q: 2 Sit to Stand (QC): 2 Chair/Ohm-gv-Nawbv Xfer(QC): 2 mod assist due to lethargy from medication issued earlier in day Gait Does the Patient Walk?: Yes Anticipated Mode of Locomotion: Walk Gait Assistive Device: FWW Comments/Gait Description not performed at this time due to lethargy Balance Sitting Static: Fair Sitting Dynamic: Fair Standing Static: Fair Standing Dynamic: Fair Assessment/Needs 81 y.o. female, will benefit from skilled PT to address functional strength and mobility to improve current LOF to ensure safe return to home or care facility for continued care. Patient's confusion continues. Rehab Potential: Good PT Computer Security Specialist Goals Computer Security Specialist Goals PT Computer Security Specialist Goals Time Frame: Aug 18, 2017 Transfers (B,C,W/C) (FIM): 5 Sit to Lying (QC): 4 Lying-Sitting on Side/Bed(QC): 4 Sit to Stand (QC): 4 Rollin Chair/Key-jt-Oscsf Xfer(QC): 4 Does the Patient Walk: Yes Gait (FIM): 5 Gait distance (FIM): 3=150 ft Distance: 250' Walk 50ft with 2 Turns (QC): 4 Walk 150 ft (QC): 4 Gait Level of Assist: 5 Gait Assistive Device: FWW PT Plan Problem List Problem List: Activity Tolerance, Functional Strength, Safety, Balance, Gait, Transfer, Bed Mobility Treatment/Plan Treatment Plan: Continue Plan of Care Treatment Plan: Bed Mobility, Education, Functional Activity Bart, Functional Strength, Gait, Safety, Therapeutic Exercise, Transfers Treatment Duration: Aug 18, 2017 Frequency: 6 times per week Estimated Hrs Per Day: .5 hour per day Patient and/or Family Agrees t: Yes Safety Risks/Education Patient Education: Safety Issues Teaching Recipient: Patient Teaching Methods: Discussion Response to Teaching: Reinforcement Needed Discharge Recommendations Therapy D/C Recommendations: Assisted Living, Group Home Placement Equpiment Recommendations-D/C: Front Wheeled Walker Time/GCodes Time In: 1440 Time Out: 1455 Total Billed Treatment Time: 15 Total Billed Treatment 1 visit EVLowC 15 min CARLOS PA PT Aug 07, 2017 15:11
--- NOTE | 2017-08-07 15:37 | Occ Therapy Progress Note ---
Therapy Progress Note 1313 Attempted to do OT evaluation but pt was in bed asleep (after PT) and would not wake up. Will do eval tomorrow. ALICIA NOE OT Aug 07, 2017 15:36
[2017-08-07] MEDS ORDERED: FAMOTIDINE 20 MG (PEPCID) TABLET PO SCH (16:28)
[2017-08-07] MEDS ORDERED: SOTALOL 80 MG (BETAPACE) TAB PO SCH (16:28)
[2017-08-07] MEDS ORDERED: RIVAROXABAN 20 MG TABLET (XARELTO) PO SCH (16:28)
[2017-08-07] MEDS ORDERED: RT-ALBUTEROL/IPRATROPIUM 3 ML (DUONEB) VIAL INH SCH (16:28)
[2017-08-07] MEDS ORDERED: DIVALPROX SPRINKLE 125 MG (DEPAKOTE) CAP PO SCH (16:28)
[2017-08-07] MEDS ORDERED: LORATADINE (CLARITIN) 10 MG TAB PO SCH (16:28)
[2017-08-07] MEDS ORDERED: cefTRIAXone INJECTION 1,000 MG in NS (IVPB) 50 ML IV SCH (16:28)
[2017-08-07] MEDS ORDERED: ALPRAZolam 0.25 MG (XANAX) TAB PO SCH (16:28)
[2017-08-07] MEDS ORDERED: CELECOXIB 100 MG (CeleBREX) CAP PO SCH (16:28)
[2017-08-07] MEDS ORDERED: guaiFENesin (MUCINEX) 600 MG TAB PO SCH (16:28)
[2017-08-07 18:07] VITALS: BP 131/81
[2017-08-07] MEDS: SOTALOL 80 MG (BETAPACE) TAB PO SCH (20:27)
[2017-08-07] MEDS: CELECOXIB 100 MG (CeleBREX) CAP PO SCH (20:27)
[2017-08-07] MEDS: DIVALPROX SPRINKLE 125 MG (DEPAKOTE) CAP PO SCH (20:27)
[2017-08-07] MEDS: FAMOTIDINE 20 MG (PEPCID) TABLET PO SCH (20:28)
[2017-08-07] MEDS: ALPRAZolam 0.25 MG (XANAX) TAB PO SCH (20:28)
[2017-08-07] MEDS: guaiFENesin (MUCINEX) 600 MG TAB PO SCH (20:28)
[2017-08-08 05:22] VITALS: BP 137/64
[2017-08-08] MEDS: RT-ALBUTEROL/IPRATROPIUM 3 ML (DUONEB) VIAL INH SCH ×4 (07:39→19:25)
[2017-08-08] MEDS: cefTRIAXone INJECTION 1,000 MG in NS (IVPB) 50 ML IV SCH (09:29)
[2017-08-08] MEDS: guaiFENesin (MUCINEX) 600 MG TAB PO SCH ×2 (09:34→20:37)
[2017-08-08] MEDS: SOTALOL 80 MG (BETAPACE) TAB PO SCH ×2 (09:34→20:36)
[2017-08-08] MEDS: RIVAROXABAN 20 MG TABLET (XARELTO) PO SCH (09:35)
[2017-08-08] MEDS: LORATADINE (CLARITIN) 10 MG TAB PO SCH (09:36)
[2017-08-08] MEDS: DIVALPROX SPRINKLE 125 MG (DEPAKOTE) CAP PO SCH ×2 (09:37→20:36)
[2017-08-08] MEDS: CELECOXIB 100 MG (CeleBREX) CAP PO SCH ×2 (09:37→20:37)
[2017-08-08] MEDS: FAMOTIDINE 20 MG (PEPCID) TABLET PO SCH ×2 (09:38→20:36)
[2017-08-08] MEDS: ALPRAZolam 0.25 MG (XANAX) TAB PO SCH ×2 (09:38→20:37)
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
--- NOTE | 2017-08-08 11:08 | Occupational Therapy Eval ---
OT Evaluation-General/PLF Medical Diagnosis Admission Date Aug 07, 2017 at 14:12 Medical Diagnosis: pneumonia/hyponatremia Onset Date: Aug 03, 2017 Therapy Diagnosis Therapy Diagnosis: decreased self care skills Height/Weight Height (Feet): 5 Height (Inches): 4.00 Weight (Pounds): 131 Weight (Ounces): 4.0 Precautions Precautions/Isolations: Fall Prevention, Standard Precautions, Pressure Ulcer Safety Interventions: Bed Exit Alarm Referral Physician: Kayla Medical History Pertinent Medical History: Atrial Fib, Dementia, [place], Rheumatoid Arthritis Additional Medical History Osteoporosis, paranoia Reviewed History: Yes Social History Home: Single Level Current Living Status: Alone Entry Into Home: Stairs With Railing Steps Into Home: 5 Steps Inside Home: 5 ADL-Prior Level of Function ADL PLOF Comments Pt reports being independent with basic self care. Daughter checks on pt daily and assists with laundry per chart. Drive Self: No OT Current Status Subjective Pt sitting in chair, agrees to treatment. Pt has no c/o pain. Mental Status/Objective Patient Orientation: Person (Pt able to state name, but not ), Confused Pt unaware of current location or date. Attachments: Oxygen Current Glasses/Contacts: Yes Dentures/Partials: Yes Hand Dominance: Right Upper Extremity ROM Grossly WFL Upper Extremity Coordination Intact Upper Extremity Sensation Intact per pt report Upper Extremity Strength Grossly 4/5 ADL-Treatment ADL-Current Pt participated in UE assessment while seated. Pt combed hair with minimal assistance to reach the back. Pt declined to complete oral care at this time, states she wants to eat first. Pt sit to stand with minimal assistance. Demonstrates ability to perform transfer with minimal assistance using FWW, cues for safety. Pt returned to sitting in chair with cues for safe positioning in front of chair before sitting. Pt sitting in chair with needs met and chair alarm and telesitter in place after session. Functional [place] Measure 0=Not Assessed/NA 4=Minimal Assistance 1=Total Assistance 5=Supervision or Setup 2=Maximal Assistance 6=Modified [place] 3=Moderate Assistance 7=Complete IndependenceIRFPAI Quality Coding Scale 6 Independent with activity with or without an assistive device 5 Patient requires set up or clean up by helper. Patient completes activity by themselves 4 Supervision or touching assist (CGA). [place] provide cues , steadying assist 3 The helper provides less than half the effort to complete the activity 2 The helper provides more than half the effort to complete the activity 1 Dependent. The helper does all the effort to complete an activity 7 Patient refused to complete or attempt activity 9 The patient did not perform the activity before the current illness or injury 88 Not attempted due to Medical conditions or safety concerns Grooming (FIM): 4 Transfers (B, C, W/C) (FIM): 4 Education OT Patient Education: Rehab process Teaching Recipient: Patient Teaching Methods: Discussion Response to Teaching: Unable to Comprehend OT Short Term Goals Short Term Goals 1=Demonstrate adherence to instructed precautions during ADL tasks. 2=Patient will verbalize/demonstrate understanding of assistive devices/ modifications for ADL. 3=Patient will improve strength/tolerance for activity to enable patient to perform ADL's. OT Hydraulic Jack Mechanic Goals Intermediate Goals Time Frame: Aug 22, 2017 Eating (FIM): 6 Eating (QC): 6 Groomin Oral Hygiene (QC): 6 Upper Body Dressing(FIM): 5 Lower Body Dressing(FIM): 5 Toileting(FIM): 5 Toileting Hygiene (QC): 5 Toilet/Commode Transfer(FIM): 5 Toilet/Commode Transfer (QC): 5 Additional Goals: 2-Verbalize Understanding, 3-ImproveStrength/Bart 1=Demonstrate adherence to instructed precautions during ADL tasks. 2=Patient will verbalize/demonstrate understanding of assistive devices/ modifications for ADL. 3=Patient will improve strength/tolerance for activity to enable patient to perform ADL's. OT Education/Plan Problem List/Assessment Assessment: Decreased Activ Tolerance, Decreased Safety Aware, Decreased UE Strength, Dependent Transfers, Impaired Self-Care Skills Pt demonstrates decreased mobility, strength, ADL functioning, safety awareness , and activity tolerance. Pt to benefit from skilled OT intervention for ADL training, transfers, strengthening, and safety education to increase level of independence and allow safe discharge plan. Discharge Recommendations Plan/Recommendations: Continue POC Treatment Plan/Plan of Care Treatment,Training & Education: Yes Patient would benefit from OT for education, treatment and training to promote independence in ADL's, mobility, safety and/or upper extremity function for ADL' s. Plan of Care: ADL Retraining, Functional Mobility, UE Funct Exercise/Act Treatment Duration: Aug 22, 2017 Frequency: 5 times per week Estimated Hrs Per Day: .5 hour per day Rehab Potential: Fair Time/GCodes Start Time: 10:03 Stop Time: 10:28 Total Time Billed (hr/min): 25 Billed Treatment Time 1 visit, EVL(10minutes), ADL(15minutes) NIDIA MANE OT Aug 08, 2017 11:08
--- NOTE | 2017-08-08 11:18 | Progress Note-Hospitalist ---
Subjective HPI/CC On Admission Date Seen by Provider: Aug 08, 2017 Time Seen by Provider: 10:25 Mrs. Rocha reports she is feeling a little bit better. She was still confused asking about her parents as though they were still living. She wasn't sure was 1986 or 1996 and was not oriented to place but person only. She was not agitated. She denies any chest pain and reports her cough is been stable and couldn't tell me if she has been bringing up any sputum. Objective Exam Vital Signs Vital Sign - Last 12Hours 08/07/17 08/07/17 14:56 18:07 Temp 96.4 Pulse 83 Resp 16 B/P (MAP) 131/81 Pulse Ox 93 O2 Delivery Room Air Capillary Refill : General Appearance: No Apparent Distress, Chronically ill, Thin HEENT: Other (laceration healing well no surrounding erythema or discomfort. Stable bruising periorbitally on the left with resolution of swelling.) Respiratory: Chest Non Tender, No Respiratory Distress, Other (breath sounds are noted in both bases to the midlung field on the right and just in the base on the left. Respirations are 18 and nonlabored. Inspiratory dry rales are noted in the mid and upper lung tapia bilaterally without wheezing.) Cardiovascular: Regular Rate, Rhythm, No Edema, No Gallop, No JVD, No Murmur, Normal Peripheral Pulses Extremity: Other (trace edema and stable purpura bilaterally both upper and lower extremities.) Assessment/Plan Assessment and Plan Assess & Plan/Chief Complaint 1. Pneumonia possibly postobstructive on the right. CT findings did not reveal any obvious evidence for cancer. She does have multiple airspace densities reports the differential diagnosis includes rheumatoid nodules versus underlying infection we'll continue Rocephin. 2. Progressive dementia compatible with Alzheimer's with resolving delirium. Patient has been pleasant without evidence for agitation. 3. Likely significant COPD. 4. Rheumatoid arthritis appears to be under good control on Remicade which does increase this patient's risk for atypical infection. We'll continue to monitor. AVELINA JUAREZ MD Aug 08, 2017 11:18
[2017-08-08 19:14] VITALS: BP 139/66
[2017-08-09 06:21] VITALS: BP 126/60
[2017-08-09] MEDS: RT-ALBUTEROL/IPRATROPIUM 3 ML (DUONEB) VIAL INH SCH ×4 (07:15→22:22)
--- NOTE | 2017-08-09 08:47 | Progress Note-Hospitalist ---
Subjective HPI/CC On Admission Date Seen by Provider: Aug 09, 2017 Time Seen by Provider: 08:15 Mrs. Rocha reports she is feeling a little bit better. She was still confused asking about her parents as though they were still living. She wasn't sure was 1986 or 1996 and was not oriented to place but person only. She was not agitated. She denies any chest pain and reports her cough is been stable and couldn't tell me if she has been bringing up any sputum. Subjective/Events-last exam Mrs. Rocha is less confused this a.m. but has no recall of the fact that we are getting her set up for likely penitentiary placement with hopeful transferred to assisted living. We went over this scenario and also what she could expect in regards to what is most important to her pets and her p.m.. She denies chest pain or shortness of breath reports minimal cough and is not aware of sputum production although with her dementia history is suspect. Objective Exam Vital Signs Vital Sign - Last 12Hours 08/07/17 08/07/17 08/08/17 14:56 18:07 08:20 Temp 96.4 Pulse 83 Resp 16 B/P (MAP) 131/81 Pulse Ox 93 O2 Delivery Room Air O2 Flow Rate 2.00 Capillary Refill : General Appearance: No Apparent Distress, Chronically ill, Thin Respiratory: Chest Non Tender, No Accessory Muscle Use, No Respiratory Distress , Other (unchanged from yesterday diminished breath sounds in the bases right greater than left with rales in the mid and upper lung tapia. No wheezing is noted.) Cardiovascular: Regular Rate, Rhythm, No Edema, No Gallop, No JVD, Normal Peripheral Pulses, Other (soft somewhat blowing murmur heard best left lower sternal border) Assessment/Plan Assessment and Plan Assess & Plan/Chief Complaint 1. Pneumonia possibly postobstructive on the right. CT findings did not reveal any obvious evidence for cancer. She does have multiple airspace densities reports the differential diagnosis includes rheumatoid nodules versus underlying infection we'll continue Rocephin. 2. Progressive dementia compatible with Alzheimer's with resolving delirium. Patient has been pleasant without evidence for agitation. 3. Likely significant COPD. 4. Rheumatoid arthritis appears to be under good control on Remicade which does increase this patient's risk for atypical infection. We'll continue to monitor. 5. Family is looking into penitentiary placement she will need for skilled therapy and occupational therapy. His reasonable chance that after skilled services she may be a candidate for assisted living provided delirium continues to improve. AVELINA JUAREZ MD Aug 09, 2017 08:47
[2017-08-09] MEDS: SOTALOL 80 MG (BETAPACE) TAB PO SCH ×2 (09:54→20:32)
[2017-08-09] MEDS: LORATADINE (CLARITIN) 10 MG TAB PO SCH (09:55)
[2017-08-09] MEDS: DIVALPROX SPRINKLE 125 MG (DEPAKOTE) CAP PO SCH ×2 (09:55→20:32)
[2017-08-09] MEDS: cefTRIAXone INJECTION 1,000 MG in NS (IVPB) 50 ML IV SCH (09:55)
[2017-08-09] MEDS: CELECOXIB 100 MG (CeleBREX) CAP PO SCH ×2 (09:55→20:32)
[2017-08-09] MEDS: RIVAROXABAN 20 MG TABLET (XARELTO) PO SCH (09:55)
[2017-08-09] MEDS: guaiFENesin (MUCINEX) 600 MG TAB PO SCH ×2 (09:55→20:32)
[2017-08-09] MEDS: ALPRAZolam 0.25 MG (XANAX) TAB PO SCH ×2 (09:55→20:32)
[2017-08-09] MEDS: FAMOTIDINE 20 MG (PEPCID) TABLET PO SCH ×2 (09:55→20:32)
--- NOTE | 2017-08-09 10:10 | Occupational Ther Daily Note ---
OT Current Status-Daily Note Subjective Pt alert, agrees to therapy and shower. Initially confused about where she is and thinks she is leaving today. Mental Status/Objective Patient Orientation: Person Functional [place] Measure 0=Not Assessed/NA 4=Minimal Assistance 1=Total Assistance 5=Supervision or Setup 2=Maximal Assistance 6=Modified [place] 3=Moderate Assistance 7=Complete [place] Attachments: IV, Oxygen ADL-Treatment Pt ambulates to toilet with CGA using FWW and grab bars for a BM, assistance needed for manipulation of clothing. Pt unable to complete, ambulates to shower bench then back to toilet to attempt BM again, unable to complete. CGA to transfer to shower bench with mod A sit to stand. Pt able to doff underwear, socks, and gown with SBA while seated. Mod A to stand while pt attempts to wash buttocks, requiring help. Requires assistance drying feet. Assistance needed to don underwear and socks, mod A to stand to pull up underwear. Pt able to don gown while standing with CGA after set up. Pt ambulated with FWW and CGA back to toilet to try again before going back into room, unsuccessful. Pt ambulates to chair with CGA using FWW. Pt's legs wrapped due to swelling. Extended time needed for all ADL's and verbal cueing required for next steps and walker safety. After therapy, pt sitting in recliner with phone and call light in reach and safety measures in place. Nurse present. All needs met in room. Functional [place] Measure 0=Not Assessed/NA 4=Minimal Assistance 1=Total Assistance 5=Supervision or Setup 2=Maximal Assistance 6=Modified [place] 3=Moderate Assistance 7=Complete IndependenceIRFPAI Quality Coding Scale 6 Independent with activity with or without an assistive device 5 Patient requires set up or clean up by helper. Patient completes activity by themselves 4 Supervision or touching assist (CGA). [place] provide cues , steadying assist 3 The helper provides less than half the effort to complete the activity 2 The helper provides more than half the effort to complete the activity 1 Dependent. The helper does all the effort to complete an activity 7 Patient refused to complete or attempt activity 9 The patient did not perform the activity before the current illness or injury 88 Not attempted due to Medical conditions or safety concerns Bathing (FIM): 3 Bathing Location: L Arm, R Arm, L Upper Leg, R Upper Leg, Chest, Abdomen, Perineal Area Lower Body Dressing (FIM): 3 Toileting (FIM): 4 Transfers (B, C, W/C) (FIM): 3 Toilet/Commode Transfer (FIM): 4 Shower Transfer(FIM): 3 OT Short Term Goals Short Term Goals 1=Demonstrate adherence to instructed precautions during ADL tasks. 2=Patient will verbalize/demonstrate understanding of assistive devices/ modifications for ADL. 3=Patient will improve strength/tolerance for activity to enable patient to perform ADL's. OT [facility] Goals [facility] Goals Time Frame: Aug 22, 2017 Eating (FIM): 6 Eating (QC): 6 Groomin Oral Hygiene (QC): 6 Upper Body Dressing(FIM): 5 Lower Body Dressing(FIM): 5 Toileting(FIM): 5 Toileting Hygiene (QC): 5 Toilet/Commode Transfer(FIM): 5 Toilet/Commode Transfer (QC): 5 Additional Goals: 2-Verbalize Understanding, 3-ImproveStrength/Bart 1=Demonstrate adherence to instructed precautions during ADL tasks. 2=Patient will verbalize/demonstrate understanding of assistive devices/ modifications for ADL. 3=Patient will improve strength/tolerance for activity to enable patient to perform ADL's. OT Education/Plan Problem List/Assessment Pt demonstrates decreased mobility, strength, ADL functioning, safety awareness , and activity tolerance. Pt to benefit from skilled OT intervention for ADL training, transfers, strengthening, and safety education to increase level of independence and allow safe discharge plan. Discharge Recommendations Plan/Recommendations: Continue POC Treatment Plan/Plan of Care Patient would benefit from OT for education, treatment and training to promote independence in ADL's, mobility, safety and/or upper extremity function for ADL' s. Plan of Care: ADL Retraining, Functional Mobility, UE Funct Exercise/Act Treatment Duration: Aug 22, 2017 Frequency: 5 times per week Estimated Hrs Per Day: .5 hour per day Rehab Potential: Fair Time/GCodes Start Time: 08:35 Stop Time: 09:55 Total Time Billed (hr/min): 80 Billed Treatment Time 1 visit, ADL 5 (80 minutes) FRANKLIN BATISTA Aug 09, 2017 10:10
--- NOTE | 2017-08-09 12:00 | Physical Therapy Daily Note ---
PT Daily Note-Current Subjective Pt sitting in recliner upon arrival. Pt continues to be very confused. Pt agrees to PT but doesn't know how much she can tolerate. Pain Comment: Pt unable to rate pain. Mental Status Patient Orientation: Person, Confused Transfers Functional [place] Measure 0=Not Assessed/NA 4=Minimal Assistance 1=Total Assistance 5=Supervision or Setup 2=Maximal Assistance 6=Modified [place] 3=Moderate Assistance 7=Complete IndependenceIRFPAI Quality Coding Scale 6 Independent with activity with or without an assistive device 5 Patient requires set up or clean up by helper. Patient completes activity by themselves 4 Supervision or touching assist (CGA). [place] provide cues , steadying assist 3 The helper provides less than half the effort to complete the activity 2 The helper provides more than half the effort to complete the activity 1 Dependent. The helper does all the effort to complete an activity 7 Patient refused to complete or attempt activity 9 The patient did not perform the activity before the current illness or injury 88 Not attempted due to Medical conditions or safety concerns Scootin Sit to/from Stand: 3 Sit to Stand (QC): 3 Gait Training Distance (FIM): 1=up to 49 ft Distance: 25' Gait Level of Assist: 4 Gait Assistive Device: FWW Pt is confused so Pt is CGA for safety. Pt's gait is slow but steady, no LOB on way to restroom. Wheelchair Training Does the Pt Use a Wheelchair?: No Treatments Pt is very confused so PT tried to discuss why pt sees PT and how they help. Pt transfers from recliner to standing using FWW at Mod A. Pt ambulates to restroom using FWW at CGA for safety. Pt needs help with pericare. Pt returns to recliner to rest at end of tx with all needs met. Assessment Current Status: Fair Progress Pt is very confused and fatigues easy. PT Long-Term Goals Long-Term Goals PT Loading Dock Hand Goals Time Frame: Aug 18, 2017 Transfers (B,C,W/C) (FIM): 5 Sit to Lying (QC): 4 Lying-Sitting on Side/Bed(QC): 4 Sit to Stand (QC): 4 Rollin Chair/Omr-ur-Tyrfw Xfer(QC): 4 Does the Patient Walk: Yes Gait (FIM): 5 Gait distance (FIM): 3=150 ft Distance: 250' Walk 50ft with 2 Turns (QC): 4 Walk 150 ft (QC): 4 Gait Level of Assist: 5 Gait Assistive Device: FWW PT Plan Problem List Problem List: Activity Tolerance, Functional Strength, Safety, Balance, Gait, Transfer Treatment/Plan Treatment Plan: Continue Plan of Care Treatment Plan: Bed Mobility, Education, Functional Activity Bart, Functional Strength, Gait, Safety, Therapeutic Exercise, Transfers Treatment Duration: Aug 18, 2017 Frequency: 6 times per week Estimated Hrs Per Day: .5 hour per day Patient and/or Family Agrees t: Yes Safety Risks/Education Patient Education: Gait Training, Transfer Techniques, Correct Positioning, Safety Issues Teaching Recipient: Patient Teaching Methods: Discussion Response to Teaching: Verbalize Understanding Time/GCodes Time In: 1105 Time Out: 1130 Total Billed Treatment Time: 25 Total Billed Treatment visit, FA x2 (25m) SONIA AMBRIZ PTA Aug 09, 2017 12:00
[2017-08-09 17:35] VITALS: BP 141/63
[2017-08-09] MEDS ORDERED: HALOPERIDOL 5 MG/ML (HALDOL) AMP IM PRN (19:30)
[2017-08-09] MEDS: LORazepam 0.5 MG (ATIVAN) TABLET PO PRN (20:22)
[2017-08-09] MEDS: LORazepam INJ 2 MG/ML (ATIVAN) VIAL IVP PRN (21:14)
[2017-08-10] MEDS: LORazepam INJ 2 MG/ML (ATIVAN) VIAL IVP PRN (02:15)
[2017-08-10 05:49] VITALS: BP 150/79
[2017-08-10] MEDS: RT-ALBUTEROL/IPRATROPIUM 3 ML (DUONEB) VIAL INH SCH ×4 (07:09→20:04)
[2017-08-10] MEDS: cefTRIAXone INJECTION 1,000 MG in NS (IVPB) 50 ML IV SCH (09:25)
--- NOTE | 2017-08-10 09:30 | Physical Therapy Daily Note ---
PT Daily Note-Current Subjective Pt sitting in recliner finishing eating upon arrival. Pt agrees and wants to walk with PT. Pain Location: Left Location Body Site: Knee Pain Description: Ache Comment: Pt reports pain but unable to rate. Mental Status Patient Orientation: Person, Confused Transfers Functional [place] Measure 0=Not Assessed/NA 4=Minimal Assistance 1=Total Assistance 5=Supervision or Setup 2=Maximal Assistance 6=Modified [place] 3=Moderate Assistance 7=Complete IndependenceIRFPAI Quality Coding Scale 6 Independent with activity with or without an assistive device 5 Patient requires set up or clean up by helper. Patient completes activity by themselves 4 Supervision or touching assist (CGA). [place] provide cues , steadying assist 3 The helper provides less than half the effort to complete the activity 2 The helper provides more than half the effort to complete the activity 1 Dependent. The helper does all the effort to complete an activity 7 Patient refused to complete or attempt activity 9 The patient did not perform the activity before the current illness or injury 88 Not attempted due to Medical conditions or safety concerns Scootin Sit to/from Stand: 3 Sit to Stand (QC): 3 Weight Bearing Weight Bearing Restriction: Full Weight Bearing Location Restriction: LE Bilateral Gait Training Does the Patient Walk?: Yes Distance (FIM): 1=up to 49 ft Distance: 25' Gait Level of Assist: 4 Gait Persons Needed: 1 Gait Assistive Device: FWW Pt walks with slow but steady gait, no LOB. Pt is very confused and fatigues easier today than yesterday. Wheelchair Training Does the Pt Use a Wheelchair?: No Treatments Pt needs assistance with both transfers and ambulating with FWW. Pt transfers from recliner to standing using FWW at Mod A. Pt is very confused and needs redirection with sequencing and problem solving while completing task. Pt ambulates using FWW in pt's room at Min A to help turn FWW and keep it closer to pt while ambulating. Pt returns to recliner to rest at end of tx. Pt has all needs met and OT arrives. Assessment Current Status: Fair Progress Pt was more confused and more lethargic during tx. Pt fatigues easy. PT Local City Driver Goals Local City Driver Goals PT Local City Driver Goals Time Frame: Aug 18, 2017 Transfers (B,C,W/C) (FIM): 5 Sit to Lying (QC): 4 Lying-Sitting on Side/Bed(QC): 4 Sit to Stand (QC): 4 Rollin Chair/Bcq-uz-Byfay Xfer(QC): 4 Does the Patient Walk: Yes Gait (FIM): 5 Gait distance (FIM): 3=150 ft Distance: 250' Walk 50ft with 2 Turns (QC): 4 Walk 150 ft (QC): 4 Gait Level of Assist: 5 Gait Assistive Device: FWW PT Plan Problem List Problem List: Activity Tolerance, Functional Strength, Safety, Balance, Gait, Transfer Treatment/Plan Treatment Plan: Continue Plan of Care Treatment Plan: Bed Mobility, Education, Functional Activity Bart, Functional Strength, Gait, Safety, Therapeutic Exercise, Transfers Treatment Duration: Aug 18, 2017 Frequency: 6 times per week Estimated Hrs Per Day: .5 hour per day Patient and/or Family Agrees t: Yes Safety Risks/Education Patient Education: Gait Training, Transfer Techniques, Correct Positioning, Safety Issues Teaching Recipient: Patient Teaching Methods: Discussion Response to Teaching: Reinforcement Needed Time/GCodes Time In: 840 Time Out: 905 Total Billed Treatment Time: 25 Total Billed Treatment visit, FA (10m) & GT (15m) SONIA AMBRIZ PTA Aug 10, 2017 09:30
[2017-08-10] MEDS: FAMOTIDINE 20 MG (PEPCID) TABLET PO SCH ×2 (09:31→20:59)
[2017-08-10] MEDS: ALPRAZolam 0.25 MG (XANAX) TAB PO SCH ×2 (09:31→20:59)
[2017-08-10] MEDS: SOTALOL 80 MG (BETAPACE) TAB PO SCH ×2 (09:31→20:58)
[2017-08-10] MEDS: CELECOXIB 100 MG (CeleBREX) CAP PO SCH ×2 (09:32→20:59)
[2017-08-10] MEDS: RIVAROXABAN 20 MG TABLET (XARELTO) PO SCH (09:32)
[2017-08-10] MEDS: guaiFENesin (MUCINEX) 600 MG TAB PO SCH ×2 (09:32→20:58)
[2017-08-10] MEDS: LORATADINE (CLARITIN) 10 MG TAB PO SCH (09:33)
[2017-08-10] MEDS: DIVALPROX SPRINKLE 125 MG (DEPAKOTE) CAP PO SCH ×2 (09:33→20:58)
--- NOTE | 2017-08-10 14:28 | Occupational Ther Daily Note ---
OT Current Status-Daily Note Subjective Pt. has eyes closed throughout treatment. Requires cues to keep them open. Does not report pain but seems lethargic. Appearance PT in room and finishing up with pt. Pt. agrees to spongebath, but declines showering. PT states that pt. more tired today. Mental Status/Objective Patient Orientation: Unable to Assess Functional [place] Measure 0=Not Assessed/NA 4=Minimal Assistance 1=Total Assistance 5=Supervision or Setup 2=Maximal Assistance 6=Modified [place] 3=Moderate Assistance 7=Complete [place] Attachments: IV ADL-Treatment Functional [place] Measure 0=Not Assessed/NA 4=Minimal Assistance 1=Total Assistance 5=Supervision or Setup 2=Maximal Assistance 6=Modified [place] 3=Moderate Assistance 7=Complete IndependenceIRFPAI Quality Coding Scale 6 Independent with activity with or without an assistive device 5 Patient requires set up or clean up by helper. Patient completes activity by themselves 4 Supervision or touching assist (CGA). [place] provide cues , steadying assist 3 The helper provides less than half the effort to complete the activity 2 The helper provides more than half the effort to complete the activity 1 Dependent. The helper does all the effort to complete an activity 7 Patient refused to complete or attempt activity 9 The patient did not perform the activity before the current illness or injury 88 Not attempted due to Medical conditions or safety concerns Bathing (FIM): 2 (Pt. required assistance to wash lower abdomen, rear johanne area , and legs. Able to wash the rest with hot bath pack. Stated, "oh this feels good.") Lower Body Dressing (FIM): 1 (Dependent for socks.) Transfers (B, C, W/C) (FIM): 4 (Pt. able to stand out of chair with min assist needed. Able to stand at walker while OT washed rear johanne area.) Other Treatment During spongebath, pt. began to state that she had something in her mouth. Noted that she had pocketed eggs in her mouth from her breakfast earlier. OT assisted her to get these out. Pt. unable to swipe or wipe mouth out. OT did this for her, and then brought her water to rinse her mouth with. Pt. required frequent cues to participate, as she had difficulty sequencing. All needs met up in chair after treatment. Attempted to elevate legs for her, but pt. adamant that she be sitting upright in chair with leg rest down. Education OT Patient Education: Correct positioning, Modified ADL techniques, Progress toward Goal/Update tx plan, Purpose of tx/functional activities, Reviewed precautions, Rehab process, Transfer techniques Teaching Recipient: Patient Teaching Methods: Demonstration, Discussion Response to Teaching: Verbalize Understanding, Return Demonstration OT Short Term Goals Short Term Goals 1=Demonstrate adherence to instructed precautions during ADL tasks. 2=Patient will verbalize/demonstrate understanding of assistive devices/ modifications for ADL. 3=Patient will improve strength/tolerance for activity to enable patient to perform ADL's. OT [facility] Goals Solution Make Up Operator Goals Time Frame: Aug 22, 2017 Eating (FIM): 6 Eating (QC): 6 Groomin Oral Hygiene (QC): 6 Upper Body Dressing(FIM): 5 Lower Body Dressing(FIM): 5 Toileting(FIM): 5 Toileting Hygiene (QC): 5 Toilet/Commode Transfer(FIM): 5 Toilet/Commode Transfer (QC): 5 Additional Goals: 2-Verbalize Understanding, 3-ImproveStrength/Bart 1=Demonstrate adherence to instructed precautions during ADL tasks. 2=Patient will verbalize/demonstrate understanding of assistive devices/ modifications for ADL. 3=Patient will improve strength/tolerance for activity to enable patient to perform ADL's. OT Education/Plan Problem List/Assessment Assessment: Decreased Activ Tolerance, Dependent Transfers, Impaired Cognition , Impaired Funct Balance, Impaired I ADL's, Impaired Self-Care Skills Pt demonstrates decreased mobility, strength, ADL functioning, safety awareness , and activity tolerance. Pt to benefit from skilled OT intervention for ADL training, transfers, strengthening, and safety education to increase level of independence and allow safe discharge plan. Discharge Recommendations Plan/Recommendations: Continue POC Therapy D/C Recommendations: 24 hr Supervision Target Placement Unsure of target placement at this time. Pt. requires 24 hour care at this time. Treatment Plan/Plan of Care Treatment,Training & Education: Yes Patient would benefit from OT for education, treatment and training to promote independence in ADL's, mobility, safety and/or upper extremity function for ADL' s. Plan of Care: ADL Retraining, Functional Mobility, UE Funct Exercise/Act Treatment Duration: Aug 22, 2017 Frequency: 5 times per week Estimated Hrs Per Day: .5 hour per day Agreement: Yes Rehab Potential: Fair Time/GCodes Start Time: 09:05 Stop Time: 09:25 Total Time Billed (hr/min): 20 Billed Treatment Time 1, ADL ROBLES MAZARIEGOS OT Aug 10, 2017 14:28
[2017-08-10 17:35] VITALS: BP 130/60
[2017-08-10] MEDS: LORazepam 0.5 MG (ATIVAN) TABLET PO PRN (20:59)
[2017-08-11 06:00] VITALS: BP 110/66
[2017-08-11] MEDS: SOTALOL 80 MG (BETAPACE) TAB PO SCH (08:40)
[2017-08-11] MEDS: RT-ALBUTEROL/IPRATROPIUM 3 ML (DUONEB) VIAL INH SCH ×2 (08:41→10:58)
[2017-08-11] MEDS: ALPRAZolam 0.25 MG (XANAX) TAB PO SCH (08:41)
[2017-08-11] MEDS: CELECOXIB 100 MG (CeleBREX) CAP PO SCH (08:41)
[2017-08-11] MEDS: LORATADINE (CLARITIN) 10 MG TAB PO SCH (08:41)
[2017-08-11] MEDS: FAMOTIDINE 20 MG (PEPCID) TABLET PO SCH (08:41)
[2017-08-11] MEDS: guaiFENesin (MUCINEX) 600 MG TAB PO SCH (08:41)
[2017-08-11] MEDS: RIVAROXABAN 20 MG TABLET (XARELTO) PO SCH (08:41)
[2017-08-11] MEDS: DIVALPROX SPRINKLE 125 MG (DEPAKOTE) CAP PO SCH (08:41)
[2017-08-11] MEDS ORDERED: ACET-2422 PO ×2 (08:55→08:58)
--- NOTE | 2017-08-11 09:33 | Occupational Ther Daily Note ---
OT Current Status-Daily Note Subjective Pt seen in room, up in recliner, agreeable to OT. No pain mentioned. Appearance Confused Mental Status/Objective Functional [place] Measure 0=Not Assessed/NA 4=Minimal Assistance 1=Total Assistance 5=Supervision or Setup 2=Maximal Assistance 6=Modified [place] 3=Moderate Assistance 7=Complete [place] ADL-Treatment Pt had just toileted with nursing. Needs help with clothing management and wiping. Mod assist getting on and off BSC. Pt brushed teeth with mod assist, help to clean partial, help to clean teeth thoroughly, supervision. Pt needs supervision and setup for eating. Needed mod assist to get out of recliner, skilled cues for sequencing, use of walker. Took about 5 steps, min assist, skilled cues, and needed to sit. Mod assist off toilet and min to walk back to recliner, legs elevated. All ADLs took longer than usual due to cues and assist needed. Pt left up in recliner, chair alarm on, telesitter in room, all needs met. Functional [place] Measure 0=Not Assessed/NA 4=Minimal Assistance 1=Total Assistance 5=Supervision or Setup 2=Maximal Assistance 6=Modified [place] 3=Moderate Assistance 7=Complete IndependenceIRFPAI Quality Coding Scale 6 Independent with activity with or without an assistive device 5 Patient requires set up or clean up by helper. Patient completes activity by themselves 4 Supervision or touching assist (CGA). [place] provide cues , steadying assist 3 The helper provides less than half the effort to complete the activity 2 The helper provides more than half the effort to complete the activity 1 Dependent. The helper does all the effort to complete an activity 7 Patient refused to complete or attempt activity 9 The patient did not perform the activity before the current illness or injury 88 Not attempted due to Medical conditions or safety concerns Eating (FIM): 5 Eating (QC): 4 Grooming (FIM): 3 Oral Hygiene (QC): 6 Toileting (FIM): 1 Toileting Hygiene (QC): 2 Toilet/Commode Transfer (FIM): 3 Toilet Transfer (QC): 3 Education OT Patient Education: Purpose of tx/functional activities, Safety issues, Transfer techniques Teaching Recipient: Patient Teaching Methods: Discussion Response to Teaching: Verbalize Understanding OT Short Term Goals Short Term Goals 1=Demonstrate adherence to instructed precautions during ADL tasks. 2=Patient will verbalize/demonstrate understanding of assistive devices/ modifications for ADL. 3=Patient will improve strength/tolerance for activity to enable patient to perform ADL's. OT Assisted Goals Internet Specialist Goals Time Frame: Aug 22, 2017 Eating (FIM): 6 Eating (QC): 6 Groomin Oral Hygiene (QC): 6 Upper Body Dressing(FIM): 5 Lower Body Dressing(FIM): 5 Toileting(FIM): 5 Toileting Hygiene (QC): 5 Toilet/Commode Transfer(FIM): 5 Toilet/Commode Transfer (QC): 5 Additional Goals: 2-Verbalize Understanding, 3-ImproveStrength/Bart 1=Demonstrate adherence to instructed precautions during ADL tasks. 2=Patient will verbalize/demonstrate understanding of assistive devices/ modifications for ADL. 3=Patient will improve strength/tolerance for activity to enable patient to perform ADL's. OT Education/Plan Problem List/Assessment Pt demonstrates decreased mobility, strength, ADL functioning, safety awareness , and activity tolerance. Pt to benefit from skilled OT intervention for ADL training, transfers, strengthening, and safety education to increase level of independence and allow safe discharge plan. Discharge Recommendations Plan/Recommendations: Continue POC (may DC to skilled unit today) Treatment Plan/Plan of Care Patient would benefit from OT for education, treatment and training to promote independence in ADL's, mobility, safety and/or upper extremity function for ADL' s. Plan of Care: ADL Retraining, Functional Mobility, UE Funct Exercise/Act Treatment Duration: Aug 22, 2017 Frequency: 5 times per week Estimated Hrs Per Day: .5 hour per day Agreement: Yes Rehab Potential: Fair Time/GCodes Start Time: 08:35 Stop Time: 09:05 Total Time Billed (hr/min): 30 Billed Treatment Time visit, 30 minutes ADL ALICIA NOE OT Aug 11, 2017 09:33
--- NOTE | 2017-08-11 10:09 | Physical Therapy Daily Note ---
PT Daily Note-Current Subjective Patient is in chair stating, "I just delivered a baby. Where did it go?" PT attempted to reorient patient, however, unsuccessful. Pain Numeric Pain Scale: 0-No Pain Mental Status Patient Orientation: Confused Attachments: Oxygen (it was not on upon arrival of PT) Transfers Functional [place] Measure 0=Not Assessed/NA 4=Minimal Assistance 1=Total Assistance 5=Supervision or Setup 2=Maximal Assistance 6=Modified [place] 3=Moderate Assistance 7=Complete IndependenceIRFPAI Quality Coding Scale 6 Independent with activity with or without an assistive device 5 Patient requires set up or clean up by helper. Patient completes activity by themselves 4 Supervision or touching assist (CGA). [place] provide cues , steadying assist 3 The helper provides less than half the effort to complete the activity 2 The helper provides more than half the effort to complete the activity 1 Dependent. The helper does all the effort to complete an activity 7 Patient refused to complete or attempt activity 9 The patient did not perform the activity before the current illness or injury 88 Not attempted due to Medical conditions or safety concerns Transfers (B, C, W/C) (FIM): 3 Scootin Sit to Stand (QC): 3 mod assist for safety with gait belt use Gait Training Does the Patient Walk?: Yes Gait (FIM): 1 Distance (FIM): 1=up to 49 ft Distance: 25' x 2 Gait Level of Assist: 4 Gait Persons Needed: 1 Gait Assistive Device: FWW flexed trunk and bilateral knee posture; unsafe due to confusion and fatigue Exercises Seated Therapy Exercises: Ankle pumps, Long arc quads Seated Reps: 15 (AAROM bilateral LE) Assessment Current Status: Regressing Patient extremely confused and unable to safely follow simple direction. Patient continued to talk about delivering a baby. RN is aware of patient's confusion. Plan dismissal to [place] on this date. Goals address but not attained. PT Marine Pilot Goals Retirement Goals PT Marine Pilot Goals Time Frame: Aug 18, 2017 Transfers (B,C,W/C) (FIM): 5 Sit to Lying (QC): 4 Lying-Sitting on Side/Bed(QC): 4 Sit to Stand (QC): 4 Rollin Chair/Snd-fi-Itado Xfer(QC): 4 Does the Patient Walk: Yes Gait (FIM): 5 Gait distance (FIM): 3=150 ft Distance: 250' Walk 50ft with 2 Turns (QC): 4 Walk 150 ft (QC): 4 Gait Level of Assist: 5 Gait Assistive Device: FWW PT Plan Treatment/Plan Treatment Plan: Continue Plan of Care, Discontinue PT Treatment Plan: Bed Mobility, Education, Functional Activity Bart, Functional Strength, Gait, Safety, Therapeutic Exercise, Transfers Treatment Duration: Aug 18, 2017 Frequency: 6 times per week Estimated Hrs Per Day: .5 hour per day Patient and/or Family Agrees t: Yes Discharge Recommendations Therapy D/C Recommendations: [facility] Placement Time/GCodes Time In: 937 Time Out: 952 Total Billed Treatment Time: 15 Total Billed Treatment 1 visit FA 15 min CARLOS PA PT Aug 11, 2017 10:09
--- NOTE | 2017-08-11 10:11 | Therapy Team Discharge Summary ---
Therapy Discharge Summary Discharge Recommendations Date of Discharge Therapy D/C Recommendations: Mcfp Placement Physical Therapy Patient extremely confused and unable to safely follow simple direction. Patient continued to talk about delivering a baby. RN is aware of patient's confusion. Plan dismissal to [place] on this date. Goals address but not attained. Patient is regressing from admit from a gross motor skills. Therapy to continue at [place]. PT Generating Plant Superintendent Goals Generating Plant Superintendent Goals PT Care Home Goals Time Frame: Aug 18, 2017 Transfers (B,C,W/C) (FIM): 5 Sit to Lying (QC): 4 Lying-Sitting on Side/Bed(QC): 4 Sit to Stand (QC): 4 Rollin Chair/Rtu-iz-Roiyv Xfer(QC): 4 Does the Patient Walk: Yes Gait (FIM): 5 Gait distance (FIM): 3=150 ft Distance: 250' Walk 50ft with 2 Turns (QC): 4 Walk 150 ft (QC): 4 Gait Level of Assist: 5 Gait Assistive Device: FWW OT Generating Plant Superintendent Goals Generating Plant Superintendent Goals Time Frame: Aug 22, 2017 Eating (FIM): 6 Eating (QC): 6 Groomin Oral Hygiene (QC): 6 Upper Body Dressing(FIM): 5 Lower Body Dressing(FIM): 5 Toileting(FIM): 5 Toileting Hygiene (QC): 5 Toilet/Commode Transfer(FIM): 5 Toilet/Commode Transfer (QC): 5 Additional Goals: 2-Verbalize Understanding, 3-ImproveStrength/Bart 1=Demonstrate adherence to instructed precautions during ADL tasks. 2=Patient will verbalize/demonstrate understanding of assistive devices/ modifications for ADL. 3=Patient will improve strength/tolerance for activity to enable patient to perform ADL's. CARLOS PA PT Aug 11, 2017 10:11
--- NOTE | 2017-08-11 11:53 | Discharge Summary-Hospitalist ---
Diagnosis/Chief Complaint Date of Admission Aug 07, 2017 at 14:12 Date of Discharge Discharge Date: Aug 11, 2017 Discharge Time: 13:00 Admission Diagnosis 1. Right middle lobe pneumonia. 2. Alzheimer's dementia compensated by delirium 3. History of PSVT 4. History of paroxysmal fibrillation. 5. Rheumatoid arthritis. 6. Interstitial lung disease Discharge Diagnosis 1. Pneumonia possibly postobstructive on the right. CT findings did not reveal any obvious evidence for cancer. She does have multiple airspace densities reports the differential diagnosis includes rheumatoid nodules versus underlying infection we'll continue Rocephin. 2. Progressive dementia compatible with Alzheimer's with resolving delirium. Patient has been pleasant without evidence for agitation. 3. Likely significant COPD. 4. Rheumatoid arthritis appears to be under good control on Remicade which does increase this patient's risk for atypical infection. We'll continue to monitor. 5. additional diagnosis as per admission. Discharge Summary Discharge Physical Examination Allergies: Coded Allergies: Penicillins (Verified Adverse Reaction, Intermediate, swelling, 06/30/17) aspartame (Verified Adverse Reaction, Intermediate, elevated heart rate/ feeling ill, 06/30/17) Vitals & I&Os Vital Signs Date Time Temp Pulse Resp B/P (MAP) Pulse Ox O2 Delivery O2 Flow Rate FiO2 08/11/17 10:58 96 Nasal Cannula 4.00 08/11/17 06:00 96.8 77 24 110/66 Hospital Course Mrs. Rocha admitted to [facility] to continue antibiotics for right middle lobe pneumonia possibly postobstructive. CT scanning did not reveal evidence for pulmonary mass it was more compatible with atelectasis. She does have multiple small pulmonary nodules I suspect are likely rheumatoid nodules. She likely has a combination of significant COPD as well as interstitial lung disease secondary to distant past smoking and rheumatoid arthritis.continued to be confused. Initially there were some agitation but for the past for 5 days she has not been agitated. She is being transferred to [facility] to continue PT OT and considering her dementia speech therapy. Her long-term prognosis considering her performance status and multiple medical conditions is poor. If there is further decline in her status will readdress recommendations for hospice care. For now she has shown slow improvement has a reasonable appetite so that more aggressive [facility] are reasonable. Her ultimate goal is to at least go to assisted living. We'll be discussing CODE STATUS issues with her family as well as finding out when she is due for her next Remicade injection for rheumatoid arthritis. For now her RA is quiescent without evidence for inflammatory arthropathy she does have evidence for chronic synovitis. Discharge Home Medications: Active Scripts Active Acetaminophen ER (Acetaminophen) 650 Mg Tablet.er 650 Mg PO Q6HR PRN Mucinex (Guaifenesin) 600 Mg Tab.er.12h 600 Mg PO BID Reported Xanax (Alprazolam) 0.25 Mg Tablet 0.25 Mg PO DAILY PRN Xanax (Alprazolam) 0.25 Mg Tablet 0.25 Mg PO BID PRN Xarelto (Rivaroxaban) 20 Mg Tablet 20 Mg PO DAILY Metoprolol Succinate 25 Mg Tab.er.24h 25 Mg PO DAILY Depakote Sprinkle (Divalproex Sodium) 125 Mg Cap 125 Mg PO BID Multivitamins (Multivitamin) 1 Each Tablet 1 Tab PO DAILY Zantac (Ranitidine HCl) 150 Mg Tablet 150 Mg PO BID Vitamin B Complex 1 Each Tablet 1 Tab PO DAILY Vitamin C (Ascorbate Calcium) 500 Mg Tablet 500 Mg PO DAILY Lecithin (Lecithin, Soy) 400 Mg Capsule 400 Mg PO BID Zyrtec (Cetirizine HCl) 10 Mg Capsule 10 Mg PO DAILY Sotalol (Sotalol HCl) 120 Mg Tablet 120 Mg PO BID Celebrex (Celecoxib) 200 Mg Capsule 200 Mg PO BID Aspirin Ec 81 Mg (Aspirin) 81 Mg Tabec 81 Mg PO BID Instructions to patient/family Please see electronic discharge instructions given to patient. Clinical Quality Measures DVT/VTE Risk/Contraindication: Risk Factor Score Per Nursin Copy Copies To 1: AVELINA JUAERZ MD, MARK D MD Aug 11, 2017 11:53
[2017-08-11 14:30] VITALS: BP 110/66
--- NOTE | 2017-08-11 14:47 | Therapy Team Discharge Summary ---
Therapy Discharge Summary Discharge Recommendations Date of Discharge 08-11-17 Therapy D/C Recommendations: Snf (TCU/NH) (OT) Occupational Therapy Pt seen for skilled OT to increase her independence in basic self care to allow her to safely return to her home to live alone. Pt's self care skills have fluctuated from day to day and by discharge she needed supervision for eating, mod assist with grooming, max assist toileting and mod assist toilet transfers. See tx plan for goals met. Pt transferred to skilled today for continued therapy. DC OT PT Proposal Consultant Goals Proposal Consultant Goals PT Proposal Consultant Goals Time Frame: Aug 18, 2017 Transfers (B,C,W/C) (FIM): 5 Sit to Lying (QC): 4 Lying-Sitting on Side/Bed(QC): 4 Sit to Stand (QC): 4 Rollin Chair/Vgv-zs-Elkxt Xfer(QC): 4 Does the Patient Walk: Yes Gait (FIM): 5 Gait distance (FIM): 3=150 ft Distance: 250' Walk 50ft with 2 Turns (QC): 4 Walk 150 ft (QC): 4 Gait Level of Assist: 5 Gait Assistive Device: FWW OT Group Home Goals Proposal Consultant Goals Time Frame: Aug 22, 2017 Eating (FIM): 6 (not met -15-17) Eating (QC): 6 (not met --17) Groomin (not met 08-11-) Oral Hygiene (QC): 6 (not met 08-11-) Upper Body Dressing(FIM): 5 (not met --) Lower Body Dressing(FIM): 5 (not met --) Toileting(FIM): 5 (not met --) Toileting Hygiene (QC): 5 (not met --) Toilet/Commode Transfer(FIM): 5 (not met --) Toilet/Commode Transfer (QC): 5 (not met -15-17) Additional Goals: 2-Verbalize Understanding, 3-ImproveStrength/Bart 1=Demonstrate adherence to instructed precautions during ADL tasks. 2=Patient will verbalize/demonstrate understanding of assistive devices/ modifications for ADL. 3=Patient will improve strength/tolerance for activity to enable patient to perform ADL's. ALICIA NOE OT Aug 11, 2017 14:47
== END 2017-08-11 14:35 | DRG 190 ==
LOC: 4TH 14:12
PROVIDERS: ADMIT Internal Medicine; ATTEND Internal Medicine
DX: J44.0 Chronic obstructive pulmonary disease with (acute) lower respiratory infection (principal); J15.9 Unspecified bacterial pneumonia; M05.10 Rheumatoid lung disease with rheumatoid arthritis of unspecified site; G30.9 Alzheimer's disease, unspecified; F02.80 Dementia in other diseases classified elsewhere, unspecified severity, without behavioral disturbance, psychotic disturbance, mood disturbance, and anxiety; J44.9 Chronic obstructive pulmonary disease, unspecified
CPT/HCPCS: 94640; 94760